=== PATIENT | male | born 1945 | race Caucasian/White ===

== ENCOUNTER 2019-09-01 11:56 | Outpatient (CLI) | payer MEDICARE, SELFPAY ==
--- NOTE | ~2019-09-01 | XR_ITS ---
XR knee RT 3V DATE: 09/01/2019 12:38 INDICATION: Right knee pain TECHNIQUE: 4 views COMPARISON: None FINDINGS: There is prominent narrowing and moderate periarticular spurring at the patellofemoral join t consistent with osteoarthritis. There is mild loss of height of lateral, joint space. There is prominent chondrocalcinosis of the kne e joint. No fracture or dislocation or joint effusion or bone destruction is evident. There is hyperostosis al diane the medial femoral metaphyseal area. IMPRESSION: Osteoarthritis and chondrocalcinosis Reviewed, dictated and finalized at location B. MAILER MACHINE OPERATOR
== END 2019-09-01 11:57 | disposition home or self-care (01) ==
PROVIDERS: PCP Family Medicine; Visit Provider Family Medicine
DX: M25.561 Pain in right knee (principal); M25.461 Effusion, right knee; M17.11 Unilateral primary osteoarthritis, right knee; M11.261 Other chondrocalcinosis, right knee
CPT/HCPCS: 73562

== ENCOUNTER 2019-09-16 14:13 | Emergency (ER) | payer MEDICARE, SELFPAY ==
--- NOTE | ~2019-09-16 | XR_ITS ---
EXAMINATION: XR knee RT 3V DATE: 09/16/2019 15:55 INDICATION: Anterolateral right knee pain post fall TECHNIQUE: Anteroposterior, 2 oblique and crosstable lateral views of the right knee were obtained COMPARISON: 09/01/2019 FINDINGS: Alignment is normal. No fracture. Chondrocalcinosis in the medial and lateral compartments. Osteoart hritis with small marginal osteophytes in the medial and lateral compartments. Severe joint space mikal rowing at the lateral compartment with remodeling of the patellar articular surface. Likely reactive small right knee joint effusion without layering lipohemarthrosis. Loose osteochondral body at the macias perior posterior recess of the joint space. Prominent heterotopic ossification along the posterior me dial metaphyseal region of the right femur consistent with Reilly-Stieda lesion associated with c hronic medial collateral ligament sprain. Prepatellar soft tissue swelling. IMPRESSION: 1. Chondrocalcinosis and severe patellofemoral predominant tricompartmental osteoarthritis. No acute osseous abnormality. 2. Reilly-Stieda lesion consistent with chronic medial collateral ligament sprain. 3. Likely reactive small right knee joint effusion/synovitis without layering lipohemarthrosis. Reviewed, dictated and finalized at location A. BOTOMY SERVICES TECHNICIAN IMPRESSION: 1. Chondrocalcinosis and severe patellofemoral predominant tricompartmental ost eoarthritis. No acute osseous abnormality. 2. Reilly-Stieda lesion consistent with chronic medial collateral ligament sprain. 3. Likely reactive small right knee joint effusion/synovitis without layering l ipohemarthrosis.
--- NOTE | ~2019-09-16 | US_ITS ---
EXAMINATION: US venous doppler LE EXAM DATE: 09/16/2019 16:45 INDICATION: Bilateral leg swelling. TECHNIQUE: Multiple grayscale, color flow and Doppler images of the lower extremity deep venous syste ms bilaterally were obtained and reviewed. There is no prior study for comparison. FINDINGS: RIGHT SIDE Common femoral: -------- Normal. Profunda femoral: ------- Normal. Femoral: Normal. Popliteal: Normal. Posterior tibial: --------- Normal. Peroneal: Thrombosed. Gastrocnemius: Normal. Soleus: Not visualized. Greater saphenous: ----- Normal. Lesser saphenous: ------ Not visualized. LEFT SIDE Common femoral: -------- Normal. Profunda femoral: ------- Normal. Femoral: Normal. Popliteal: Normal. Posterior tibial: --------- Normal. Peroneal: Normal. Gastrocnemius: Normal. Soleus: Not visualized. Greater saphenous: ----- Normal. Lesser saphenous: ------ Not visualized. IMPRESSION: 1. Positive for right peroneal DVT. 2. No left DVT. Reviewed, dictated and finalized at location A. ATTENDANT HELPER
[2019-09-16 15:14] VITALS: BP 114/80; PULSE 79; RESP 19; O2SAT 100
[2019-09-16 17:12] VITALS: BP 125/65; PULSE 85; RESP 18; O2SAT 100
[2019-09-16] MEDS: APIXABAN 5 MG TABLET PO (17:52)
[2019-09-16 17:54] LABS: Basophils Percent Auto 0.2 % (0.2-1.2); Eosinophils Absolute Auto 0.2 K/mm3 (0-0.3); Eosinophils Percent Auto 1.9 % (0-4.4); Hematocrit 34.6 % (42.0-52.0); Hemoglobin 11.4 g/dL (14.0-18.0); Immature Granulocyte Absolute 0.04 K/mm3 (0.00-0.031); Immature Granulocyte Percent A 0.5 % (0-0.5); Lymphocytes Absolute Auto 1.41 K/mm3 (0.9-3.2); Mean Corpuscular HGB Conc 32.9 g/dl (32-36); Mean Corpuscular Hemoglobin 35.2 pg (26-34); Mean Corpuscular Volume 106.8 fl (80-100); Mean Platelet Volume 9.6 fl (7.4-10.4); Monocytes Percent Auto 10.8 % (2.6-8.5); Neutrophils Absolute Auto 6.2 K/mm3 (1.3-6.7); Neutrophils Percent Auto 70.6 % (45.5-73.1); Platelet Count Result 185 k/mm3 (150-375); Red Blood Count 3.24 M/mm3 (4.6-6.20); Red Cell Distribution Width 13.4 % (11.5-14.5); White Blood Count 8.8 K/mm3 (4.5-10.0)
[2019-09-16 18:11] LABS: Blood Urea Nitrogen 41 mg/dL (9-20); Calcium 8.6 mg/dL (8.4-10.2); Carbon Dioxide 25 mmol/L (22-30); Chloride 104 mmol/L (98-107); Estimated CRCL calculation 27 ml/min; Estimated Glomerular Filt Rate 29; Glucose 100 mg/dL (75-110); Sodium 137 mmol/L (137-145)
[2019-09-16 18:12] LABS: Potassium 4.4 mmol/L (3.4-5.0)
[2019-09-16 18:18] LABS: Erythrocyte Sedimentation Rate 106 mm/hr (0-20)
--- NOTE | 2019-09-16 18:19 | ED.GENADULT ---
HPI - General Adult General Chief complaint: Extremity Injury, Lower Stated complaint: R knee pain Time Seen by Provider: 09/16/19 15:23 Source: patient Mode of arrival: ambulatory Limitations: no limitations History of Present Illness HPI narrative: Patient is a 74-year-old male who presents to emergency department noting that he has been having swelling to the right knee and pain after he fell onto the knee 5 days ago patient notes that he has also been dealing with some swelling in the bilateral lower extremities and had been on Eliquis for DVT followed by Dr. Kirby. Patient notes moderate aching pain to the right knee where he has an abrasion to the right knee and the left knee patient denies other injuries or complaints or any chest pain or shortness of breath or lightheadedness or dizziness. Pain is worse with weightbearing and activity. Related Data Home Medications Medication Instructions Recorded Confirmed ferrous sulfate [iron] 325 mg PO BID 07/13/19 08/10/19 nebivolol [Bystolic] 20 mg PO DAILY 07/13/19 08/10/19 aspirin 325 mg PO DAILY 08/10/19 08/10/19 lisinopril 20 mg tablet 20 mg PO DAILY 09/01/19 09/01/19 Allergies Allergy/AdvReac Type Severity Reaction Status Date / Time No Known Allergies Allergy Unverified 03/08/17 10:52 Review of Systems Review of Systems: All systems reviewed & are unremarkable except as noted in HPI and below PMFSH Past Medical History Medical History CKD (chronic kidney disease) stage 3, GFR 30-59 ml/min Dyslipidemia Essential (primary) hypertension Gout Hx of pancreatitis Hx of venous thromboembolic disease Hypertension Idiopathic gout Kidney congenitally absent, left Nephropathy Pneumonia 1960 Pre-diabetes Rib fracture #8 - 1992 Surgical History Surgical History History of cholecystectomy 06/2014 History of rectal sphincterotomy biliary 03/2015 Family History Family History Sibling Hypertension Father Family history of cardiac disorder Social History Social History Smoking status: Never smoker Second hand tobacco smoke exposure: No Alcohol intake: never Substance use: never Substance use type: does not use Gender identity (if verbalized by the patient): Male Exam Narrative: Exam Narrative: GENERAL: Well-appearing, well-nourished, and in no acute distress. HEAD: Normocephalic, atraumatic. EYES: PERRLA and EOMI. ENT: Nares clear, no rhinorrhea or epistaxis. Mucous membranes moist. Oropharynx without tonsillar hypertrophy exudate or other lesions. CHEST: Clear to auscultation. No respiratory distress. No wheezes rales or rhonchi HEART: Regular rate and rhythm. No murmur heard. Normal peripheral pulses. EXTREMITIES: 1+ edema to the bilateral lower extremities. Tenderness of the right knee and left knee with abrasions bilaterally. No erythema or warmth to touch SKIN: Warm, dry, no rash. NEURO: No focal deficits. Alert and oriented x3. Cranial nerves II through XII grossly intact PSYCH: Normal mood and affect. Course Course Emergency Course: Patient in the room aware of case findings treatment plan and diagnosis agreeing to follow with oncology and primary care Consultations Consultation #1: Discussed case with patient's oncologist who would like the patient to be started on Eliquis 5 mg twice a day and to follow in clinic Discussed case with patient's data entry machine operator who will follow the patient in clinic and repeat blood work Discussed case with orthopedic surgery who will also follow patient in clinic Date: 09/16/19 Vital Signs Vital signs: Vital Signs Pulse Rate 79 09/16/19 15:14 Respiratory Rate 19 09/16/19 15:14 Blood Pressure 114/80 09/16/19 15:14 Pulse Oximetry 100 09/16/19 15:14 Pulse
[2019-09-16 18:27] LABS: CRP 17.8 mg/dL (<1.0)
[2019-09-16 18:35] LABS: Appearance Synovial Fluid Bloody (Clear); Color Synovial Fluid Red (Colorless); Source Synovial Fluid Synovial fluid
[2019-09-16 18:36] LABS: Monocytes Synovial Fluid 5 %; Neutrophils Synovial Fluid 91 % (0-25)
[2019-09-16 18:37] LABS: Lymphocytes Synovial Fluid 4 %
[2019-09-16 18:40] LABS: Crystals Synovial Fluid None Seen (None Seen)
[2019-09-16 19:42] VITALS: BP 121/75; PULSE 77; RESP 17; O2SAT 100
[2019-09-19 04:53] LABS: Glucose Synovial Fluid 70 mg/dL
== END 2019-09-16 20:52 | disposition home or self-care (01) ==
PROVIDERS: Emergency Medicine Emergency Medical Services; Emergency Provider Emergency Medicine; PCP Family Medicine
DX: M25.561 Pain in right knee (principal); I82.451 Acute embolism and thrombosis of right peroneal vein; N28.9 Disorder of kidney and ureter, unspecified; N18.3 Chronic kidney disease, stage 3 (moderate); E78.5 Hyperlipidemia, unspecified; I12.9 Hypertensive chronic kidney disease with stage 1 through stage 4 chronic kidney disease, or unspecified chronic kidney disease; M10.9 Gout, unspecified; R73.03 Prediabetes; M76.41 Tibial collateral bursitis [Pellegrini-Stieda], right leg; M11.261 Other chondrocalcinosis, right knee; M17.11 Unilateral primary osteoarthritis, right knee
CPT/HCPCS: 20610; 36415; 73562; 80048; 82945; 84157; 85025; 85610; 85652; 85730; 86140; 87070; 87075; 87205; 88108; 89051; 89060; 93970; 99284; A9270

== ENCOUNTER 2021-05-23 13:12 | Outpatient (CLI) | payer MEDICARE, SELFPAY ==
--- NOTE | ~2021-05-23 | US_ITS ---
US renal BI 05/23/2021 13:39 Procedure: Realtime transabdominal ultrasound of the kidneys and bladder. Indication: Chronic kidney disease Comparison: Ultrasound dated 04/16/2018 Findings: Renal echotexture is normal bilaterally without hydronephrosis, contour deforming mass or r enal calculus. The right kidney measures 9.7 cm and left kidney measures 5.3 cm. Bladder within norm al limits. Impression: 1: Right renal atrophy. Reviewed, dictated and finalized at location A. RUPTCY ATTORNEY Impression: 1: Right renal atrophy.
== END 2021-05-23 13:13 | disposition home or self-care (01) ==
PROVIDERS: PCP Family Medicine; Visit Provider Internal Medicine Nephrology
DX: N18.32 Chronic kidney disease, stage 3b (principal); N26.1 Atrophy of kidney (terminal)
CPT/HCPCS: 76775

== ENCOUNTER 2021-06-20 00:10 | Day surgery (SDC) | payer MEDICARE, SELFPAY ==
[2021-06-05 14:53] VITALS: BMI 27.8
--- NOTE | 2021-06-19 10:44 | PM.HPGS ---
History of Present Illness History of Present Illness Consent: Risks, benefits, and alternatives have been discussed and questions answered. Patient agrees to proceed with procedure. Chief complaint: neoplasm screening Narrative: Bentley Campos is a 76 year old male who is here for colon cancer screening. Six years ago he had 3 polyps removed 2 of which were tubular adenomas Review of Systems Review of Systems: All systems reviewed & are unremarkable except as noted in HPI and below PMFSH Past Medical History Medical History CKD (chronic kidney disease) stage 3, GFR 30-59 ml/min Dyslipidemia Essential (primary) hypertension Hemochromatosis History of colon polyps Hx of pancreatitis Hx of venous thromboembolic disease Hypertension Idiopathic gout Kidney congenitally absent, left Nephropathy Pneumonia 1960 Pre-diabetes Rib fracture #8 - 1992 Surgical History Surgical History History of cholecystectomy 06/2014 History of rectal sphincterotomy biliary 03/2015 Family History Family History Sibling Hypertension Father Family history of cardiac disorder Social History Social History Smoking status: Never smoker Second hand tobacco smoke exposure: No Alcohol intake: never Substance use: never Substance use type: does not use Living arrangements: with family Additional occupation/education comments: [employer] Gender identity (if verbalized by the patient): Male Spiritual care concerns: No Meds Home Medications and Allergies Home Medications Medication Instructions Recorded Confirmed Type lisinopril 20 mg tablet 20 mg PO DAILY 09/01/19 06/20/21 History apixaban 5 mg tablet 5 mg PO BID #20 tablet 03/13/21 06/20/21 Rx cholecalciferol (vitamin D3) 50 50 mcg PO BID cap 03/13/21 06/20/21 History mcg (2,000 unit) capsule magnesium 250 mg tablet 250 mg PO BID tablet 03/13/21 06/20/21 History mecobalamin (vitamin B12) 1,000 1,000 mcg SUBLINGUAL BID tablet 03/13/21 06/20/21 History mcg disintegrating tablet,sublingual nebivolol 20 mg tablet 20 mg PO DAILY tablet 08/31/21 12/08/21 History allopurinol 300 mg tablet 150 mg PO DAILY #90 tablet 04/11/21 06/20/21 Rx Allergies Allergy/AdvReac Type Severity Reaction Status Date / Time No Known Allergies Allergy Verified 06/20/21 06:27 Exam Const: General: alert Orientation/consciousness: patient oriented x3 Resp: Auscultation: clear to auscultation bilaterally Cardio: Rhythm: regular rhythm GI: GI Palp: Yes Soft to palpation and No Tenderness to palpation present (GI) Neuro: General: patient oriented x3 Assessment and Plan Assessment and plan (1) Colon cancer screening: Code(s): Z12.11 - Encounter for screening for malignant neoplasm of colon Status: Acute Assessment and Plan: Colonoscopy with possible biopsy or polypectomy or cautery or injection of substances.
[2021-06-20 06:16] VITALS: BP 145/74; PULSE 62; RESP 18; TEMP 36.3; O2SAT 98; BMI 26.9
[2021-06-20] MEDS: LACTATED RINGERS 1,000 ML 150 ML IV CONT (06:41)
--- NOTE | 2021-06-20 07:19 | WPDANESEPPF ---
Anes - Initial Pre Proc Eval Procedure: Operation Date: 06/20/21 07:30 Proposed Procedures p Screening Colonoscopy - Ismael Marrero MD Date/Time: 06/20/21 07:19 Surgeon: Ismael Marrero MD Pre Op Diagnosis: neoplasm screening Patient Data Age: 76 Gender: M Height: 1.78 m Weight: 85 kg Last Vital Signs Temp 97.3 F L 06/20/21 06:16 Pulse 62 06/20/21 06:16 Resp 18 06/20/21 06:16 BP 145/74 H 06/20/21 06:16 Pulse Ox 98 06/20/21 06:16 Allergies Allergy/AdvReac Type Severity Reaction Status Date / Time No Known Allergies Allergy Verified 06/20/21 06:27 Home Medications Medication Instructions Recorded Confirmed Type lisinopril 20 mg tablet 20 mg PO DAILY 09/01/19 06/20/21 History apixaban 5 mg tablet 5 mg PO BID #20 tablet 03/13/21 06/20/21 Rx cholecalciferol (vitamin D3) 50 50 mcg PO BID cap 03/13/21 06/20/21 History mcg (2,000 unit) capsule magnesium 250 mg tablet 250 mg PO BID tablet 03/13/21 06/20/21 History mecobalamin (vitamin B12) 1,000 1,000 mcg SUBLINGUAL BID tablet 03/13/21 06/20/21 History mcg disintegrating tablet,sublingual nebivolol 20 mg tablet 20 mg PO DAILY tablet 03/13/21 06/20/21 History allopurinol 300 mg tablet 150 mg PO DAILY #90 tablet 04/11/21 06/20/21 Rx Patient hx anesthesia problems: none Family hx anesthesia problems: none Results Review: All pre-operative results and documents have been reviewed as part of the pre-operative evaluation. [facility] Past Medical History Medical History CKD (chronic kidney disease) stage 3, GFR 30-59 ml/min Dyslipidemia Essential (primary) hypertension Hemochromatosis History of colon polyps Hx of pancreatitis Hx of venous thromboembolic disease Hypertension Idiopathic gout Kidney congenitally absent, left Nephropathy Pneumonia 1960 Pre-diabetes Rib fracture #8 - 1992 Surgical History Surgical History History of cholecystectomy 06/2014 History of rectal sphincterotomy biliary 03/2015 Family History Family History Sibling Hypertension Father Family history of cardiac disorder Social History Social History Smoking status: Never smoker Second hand tobacco smoke exposure: No Alcohol intake: never Substance use: never Substance use type: does not use Living arrangements: with family Additional occupation/education comments: [employer] Gender identity (if verbalized by the patient): Male Spiritual care concerns: No Anes - Eval Final PreProcedure Day of Procedure 06/20/21 07:19 Patient weight: overweight Heart: regular rate and rhythm Lungs: clear to auscultation Airway: Mallampati scale class II Neurological: alert and oriented Last oral intake: >/= 8 hours ASA classification: III Emergent: no Anesthetic plan: proceed Anesthesia type and monitoring: general GIVS and standard monitoring Results Review: All pre-operative results and documents have been reviewed as part of the pre-operative evaluation. Informed Consent: The patient's anesthetic plan and its attendant risks and benefits were discussed with the patient/family/POA. Questions were solicited and answers provided to the satisfaction of the patient/family/POA.
[2021-06-20 07:50] VITALS: BP 88/57; PULSE 64; RESP 16; O2SAT 95
[2021-06-20 08:00] VITALS: BP 101/67; PULSE 65; RESP 19; O2SAT 99
[2021-06-20 08:10] VITALS: BP 113/76; PULSE 65; RESP 17; O2SAT 99
== END 2021-06-20 08:13 | disposition home or self-care (01) ==
PROVIDERS: PCP Family Medicine; Visit Provider Internal Medicine Gastroenterology
PROC: 0DJD8ZZ Inspection of Lower Intestinal Tract, Via Natural or Artificial Opening Endoscopic (ICD-10-PCS; CPT 45378; principal; 2021-06-20 07:30)
DX: Z12.11 Encounter for screening for malignant neoplasm of colon (principal); K64.8 Other hemorrhoids; K57.30 Diverticulosis of large intestine without perforation or abscess without bleeding; Z86.010 Personal history of colon polyps; I12.9 Hypertensive chronic kidney disease with stage 1 through stage 4 chronic kidney disease, or unspecified chronic kidney disease; N18.30 Chronic kidney disease, stage 3 unspecified; E78.5 Hyperlipidemia, unspecified; M10.00 Idiopathic gout, unspecified site; R73.03 Prediabetes; Q60.0 Renal agenesis, unilateral; Z79.01 Long term (current) use of anticoagulants
CPT/HCPCS: G0105; J2704; J7120

== ENCOUNTER 2022-03-14 10:02 | Outpatient (CLI) | payer MEDICARE, SELFPAY ==
[2022-03-14 19:27] LABS: Alanine Aminotransferase 18 U/L (6-50); Albumin Level 4.2 g/dL (3.5-5.1); Alkaline Phosphatase 69 U/L (38-126); Anion Gap 10 mmol/L (8-16); Aspartate Amino Transferase 30 U/L (17-59); Bilirubin,Total 0.9 mg/dL (0.2-1.3); Blood Urea Nitrogen 36 mg/dL (9-20); Calcium 9.5 mg/dL (8.4-10.2); Carbon Dioxide 30 mmol/L (22-30); Chloride 100 mmol/L (98-107); Cholesterol 198 mg/dL (0-200); Estimated Glomerular Filt Rate 29; Glucose 111 mg/dL (65-110); HDL Direct 33 mg/dL; Potassium 4.8 mmol/L (3.4-5.0); Sodium 140 mmol/L (137-145); Triglycerides 254 mg/dL (<150)
[2022-03-14 19:36] LABS: Basophils Absolute Auto 0.1 K/mm3 (0.0-0.1); Basophils Percent Auto 0.9 % (0.2-1.2); Eosinophils Absolute Auto 0.3 K/mm3 (0-0.3); Eosinophils Percent Auto 4.9 % (0-4.4); Hematocrit 43.7 % (42.0-52.0); Hemoglobin 14.5 g/dL (14.0-18.0); Immature Granulocyte Absolute 0.01 K/mm3 (0.00-0.031); Immature Granulocyte Percent A 0.2 % (0-0.5); Lymphocytes Absolute Auto 1.59 K/mm3 (0.9-3.2); Lymphocytes Percent Auto 24.4 % (18.3-44.2); Mean Corpuscular HGB Conc 33.2 g/dl (32-36); Mean Corpuscular Hemoglobin 34.8 pg (26-34); Mean Corpuscular Volume 104.8 fl (80-100); Mean Platelet Volume 10.3 fl (7.4-10.4); Monocytes Absolute Auto 0.8 K/mm3 (0.1-0.6); Monocytes Percent Auto 11.7 % (2.6-8.5); Neutrophils Absolute Auto 3.8 K/mm3 (1.3-6.7); Neutrophils Percent Auto 57.9 % (45.5-73.1); Platelet Count Result 205 k/mm3 (150-375); Red Blood Count 4.17 M/mm3 (4.6-6.20); Red Cell Distribution Width 13.3 % (11.5-14.5); White Blood Count 6.5 K/mm3 (4.5-10.0)
[2022-03-14 19:39] LABS: LDL Cholesterol Direct 97 mg/dL
[2022-03-14 19:47] LABS: Hemoglobin A1C 6.3 % (<5.7)
[2022-03-14 19:57] LABS: Prostate Specific Antigen 0.5 ng/mL (< OR = 4.0)
== END 2022-03-14 10:03 | disposition home or self-care (01) ==
LOC: ANHGOSHLAB 10:09
PROVIDERS: PCP Family Medicine; Visit Provider Nurse Practitioner Family
DX: Z12.5 Encounter for screening for malignant neoplasm of prostate (principal); E78.5 Hyperlipidemia, unspecified; Z00.00 Encounter for general adult medical examination without abnormal findings; R73.03 Prediabetes; I10 Essential (primary) hypertension
CPT/HCPCS: 36415; 80053; 80061; 83036; 84153; 84443; 85025; G0103

== ENCOUNTER 2023-03-26 09:40 | Outpatient (CLI) | payer MEDICARE, SELFPAY ==
[2023-03-26 19:03] LABS: Basophils Absolute Auto 0.1 K/mm3 (0.0-0.1); Eosinophils Absolute Auto 0.4 K/mm3 (0-0.3); Hematocrit 42.6 % (42.0-52.0); Hemoglobin 14.2 g/dL (14.0-18.0); Immature Granulocyte Absolute 0.02 K/mm3 (0.00-0.031); Immature Granulocyte Percent A 0.3 % (0-0.5); Lymphocytes Absolute Auto 1.62 K/mm3 (0.9-3.2); Lymphocytes Percent Auto 23.3 % (18.3-44.2); Mean Corpuscular HGB Conc 33.3 g/dl (32-36); Mean Corpuscular Hemoglobin 34.4 pg (26-34); Mean Corpuscular Volume 103.1 fl (80-100); Mean Platelet Volume 9.9 fl (7.4-10.4); Monocytes Absolute Auto 0.8 K/mm3 (0.1-0.6); Monocytes Percent Auto 11.6 % (2.6-8.5); Neutrophils Absolute Auto 4.1 K/mm3 (1.3-6.7); Neutrophils Percent Auto 58.8 % (45.5-73.1); Platelet Count Result 202 k/mm3 (150-375); Red Blood Count 4.13 M/mm3 (4.6-6.20); Red Cell Distribution Width 12.3 % (11.5-14.5)
[2023-03-26 20:28] LABS: Hemoglobin A1C 6.2 % (<5.7)
[2023-03-26 21:36] LABS: Cholesterol 229 mg/dL (0-200); HDL Direct 29 mg/dL; Triglycerides 233 mg/dL (<150)
[2023-03-26 21:47] LABS: LDL Cholesterol Direct 125 mg/dL
[2023-03-26 22:36] LABS: Vitamin B12 > 1000.0 pg/mL (239-931)
[2023-03-27 12:53] LABS: Alanine Aminotransferase 21 U/L (6-50); Albumin Level 4.2 g/dL (3.5-5.1); Alkaline Phosphatase 66 U/L (38-126); Anion Gap 8 mmol/L (8-16); Aspartate Amino Transferase 26 U/L (17-59); Bilirubin,Total 0.9 mg/dL (0.2-1.3); Blood Urea Nitrogen 36 mg/dL (9-20); Calcium 9.2 mg/dL (8.4-10.2); Carbon Dioxide 27 mmol/L (22-30); Chloride 102 mmol/L (98-107); Estimated Glomerular Filt Rate 31; Glucose 98 mg/dL (65-110); Potassium 5.3 mmol/L (3.4-5.0); Sodium 137 mmol/L (137-145); Uric Acid 11.9 mg/dL (3.5-8.5)
[2023-03-27 16:37] LABS: Prostate Specific Antigen 0.6 ng/mL (< OR = 4.0)
== END 2023-03-26 09:41 | disposition home or self-care (01) ==
LOC: ANHGOSHLAB 09:42
PROVIDERS: PCP Family Medicine; Visit Provider Family Medicine
DX: Z12.5 Encounter for screening for malignant neoplasm of prostate (principal); Z00.00 Encounter for general adult medical examination without abnormal findings; R73.03 Prediabetes; E83.110 Hereditary hemochromatosis; E53.8 Deficiency of other specified B group vitamins; E78.5 Hyperlipidemia, unspecified; M10.00 Idiopathic gout, unspecified site; I10 Essential (primary) hypertension
CPT/HCPCS: 36415; 80053; 80061; 82607; 83036; 84153; 84443; 84550; 85025; G0103

== ENCOUNTER 2023-04-18 08:07 | Outpatient (CLI) | payer MEDICARE, SELFPAY ==
[2023-04-18 08:37] LABS: Hematocrit 41.2 % (42.0-52.0); Hemoglobin 13.7 g/dL (14.0-18.0); Mean Corpuscular HGB Conc 33.3 g/dl (32-36); Mean Corpuscular Hemoglobin 34.5 pg (26-34); Mean Corpuscular Volume 103.8 fl (80-100); Mean Platelet Volume 9.6 fl (7.4-10.4); Platelet Count Result 167 k/mm3 (150-375); Red Blood Count 3.97 M/mm3 (4.6-6.20); Red Cell Distribution Width 12.7 % (11.5-14.5); White Blood Count 5.9 K/mm3 (4.5-10.0)
[2023-04-18 08:47] LABS: Albumin Level 4.2 g/dL (3.5-5.1); Anion Gap 5 mmol/L (8-16); Blood Urea Nitrogen 36 mg/dL (9-20); Carbon Dioxide 29 mmol/L (22-30); Chloride 101 mmol/L (98-107); Estimated Glomerular Filt Rate 37; Glucose 115 mg/dL (65-110); Potassium 4.5 mmol/L (3.4-5.0); Sodium 135 mmol/L (137-145)
[2023-04-18 08:50] LABS: Creatinine Urine 29.4 mg/dL; Total Protein Urine Random 17 mg/dL; Ur Ttl Prot Creatinine Ratio 0.58 mg/mg (0-0.20)
[2023-04-18 09:02] LABS: Parathyroid Intact 48.1 pg/mL (7.5-53.5)
== END 2023-04-18 08:08 | disposition home or self-care (01) ==
LOC: ANHLAB 08:09
PROVIDERS: PCP Family Medicine; Visit Provider Internal Medicine Nephrology
DX: N18.32 Chronic kidney disease, stage 3b (principal)
CPT/HCPCS: 36415; 80069; 82570; 83970; 84156; 85027

== ENCOUNTER 2023-05-17 09:31 | Outpatient (CLI) | payer MEDICARE, SELFPAY ==
--- NOTE | 2023-05-17 09:35 | ECHO_ITS ---
Patient Info Name: Bentley Campos Age: 77 years : 1945 Gender: Male Ht: 70 in Wt: 170 lbs BSA: 1.96 m2 HR: 58 bpm BP: 176 / 101 mmHg Heart Rhythm: Sinus Rhythm Technical Quality: Good Exam Date: 05/17/2023 9:51 AM Exam Location: Echo Lab Patient Status: Outpatient Admit Date: 05/17/2023 Staff Ordering Physician: Sukumar Sandoval DO Tactical Air Defense Controller: King Maguire RDCS Attending Provider: Sukumar Sandoval DO Referring Physician: Jaime NICOLE; Exam Type: CA echo doppler color flow Study Info Indications - atrioventricular block Complete two-dimensional, color flow and Doppler transthoracic echocardiogram is performed. Summary 1. Complete two-dimensional, color flow and Doppler transthoracic echocardiogram is performed. 2. Left ventricular chamber dimension is normal. 3. Left ventricular systolic function is normal, estimated at 65-70%. 4. There is mild concentric increased left ventricular wall thickness. 5. The left ventricular diastolic function is grade I diastolic dysfunction. 6. E/e' 8 is minimally elevated. 7. Left atrial chamber dimension is mildly enlarged. 8. No pulmonary hypertension, estimated pulmonary arterial systolic pressure is 17 mmHg. Left Ventricle E/e' 8 is minimally elevated. Left ventricular chamber dimension is normal. Left ventricular systolic function is normal, estimated at 65-70%. There is mild concentric increased left ventricular wall thickness. The left ventricular diastolic function is grade I diastolic dysfunction. Right Ventricle Right ventricular systolic function is normal and with normal TAPSE 2.1 cm. Right ventricular chamber dimension is normal. Left Atria Left atrial chamber dimension is mildly enlarged. Right Atria Right atrial chamber dimension is normal. Aortic Valve The aortic valve is trileaflet. There is no aortic valve stenosis. There is no aortic valve regurgitation. Pulmonic Valve There is no pulmonic regurgitation. Mitral Valve There is no mitral valve stenosis. There is no mitral valve regurgitation. Tricuspid Valve There is no tricuspid valve regurgitation. No pulmonary hypertension, estimated pulmonary arterial systolic pressure is 17 mmHg. Pericardium/Pleural There is no pericardial effusion. Inferior Vena Cava Normal inferior vena cava with >50% collapse upon inspiration consistent with normal right atrial pressure, 5 mmHg. Aorta The aortic root size at the sinus of Valsalva is normal. Left Ventricular Outflow Tract Name Value Normal LVOT 2D LVOT Diameter 2.0 cm LVOT Doppler LVOT Peak Gradient 5 mmHg LVOT Mean Gradient 3 mmHg LVOT VTI 29 cm LVOT VTI/AV VTI Ratio 1.0 LVOT Stroke Volume 86 ml LVOT CO 4.4 l/min LVOT CI 2.3 l/min/m2 Pulmonic Valve Name Value Normal RVOT Doppler
== END 2023-05-17 09:32 | disposition home or self-care (01) ==
LOC: ANHCARD 09:32
PROVIDERS: PCP Family Medicine; Visit Provider Internal Medicine Cardiovascular Disease
DX: I44.2 Atrioventricular block, complete (principal); I51.7 Cardiomegaly
CPT/HCPCS: 93306

== ENCOUNTER 2023-05-26 00:39 | Day surgery (SDC) | payer MEDICARE, SELFPAY ==
[2023-05-23 14:06] VITALS: BMI 28.1
[2023-05-26] VITALS (17 sets, daily range): BP systolic 115–142; BP diastolic 45–82; PULSE 69–86; RESP 16–22; TEMP 36.6–36.8; O2SAT 93–98; BMI 27.4
--- NOTE | ~2023-05-26 | XR_ITS ---
Portable chest x-ray Comparison: 03/08/2017 Clinical History: Pacemaker placement Findings: Lungs are clear, without focal consolidation or pleural effusion. No pneumothorax. Cardio mediastinal silhouette is stable, now with pacemaker in place. Bones and soft tissues are unremarkabl e. Impression: Status post pacemaker placement. Clear lungs. Reviewed, dictated and finalized at [facility]. 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 Clear lungs.
--- NOTE | ~2023-05-26 | XR_ITS ---
EXAMINATION: XR chest 2V DATE: 05/27/2023 10:18 INDICATION: Pacer placement. TECHNIQUE: Frontal and lateral views of the chest were obtained. COMPARISON: Chest single view 05/26/2023, chest CT 08/15/2017 FINDINGS: There is mild atelectasis at left lung base. No pleural effusion or pneumothorax. The heart size is normal. There is a left chest wall pacer with leads in the right atrium and right ventricle. IMPRESSION: 1. Mild atelectasis at left lung base. Reviewed, dictated and finalized at location A. NKLER TENDER
--- NOTE | 2023-05-26 07:00 | ECG_ITS ---
Measurements Intervals [place] Rate: 78 P: [place]: 0 QRS: -1 QRSD: 80 T: 60 QT: 360 QTc: 411 Interpretive Statements SINUS RHYTHM WITH SECOND DEGREE AV BLOCK, TYPE I BORDERLINE ST-T WAVE ABNORMALITY- HIGH LATERAL LEADS BASELINE ARTIFACT- I, II, III, AVF, V1-V3 ABNORMAL ECG NO PREVIOUS ECG AVAILABLE FOR COMPARISON Electronically Signed On 05-26-2023 7:54:05 CHILD CARE COORDINATOR by uSkumar Sandoval D.O.
[2023-05-26 07:41] LABS: Anion Gap 13 mmol/L (8-16); Blood Urea Nitrogen 41 mg/dL (9-20); Calcium 9.8 mg/dL (8.4-10.2); Carbon Dioxide 25 mmol/L (22-30); Chloride 102 mmol/L (98-107); Estimated CRCL calculation 27 ml/min; Estimated Glomerular Filt Rate 31; Glucose 129 mg/dL (65-110); Potassium 4.3 mmol/L (3.4-5.0); Sodium 140 mmol/L (137-145)
[2023-05-26 07:42] LABS: Basophils Absolute Auto 0.1 K/mm3 (0.0-0.1); Basophils Percent Auto 0.9 % (0.2-1.2); Eosinophils Absolute Auto 0.4 K/mm3 (0-0.3); Eosinophils Percent Auto 5.4 % (0-4.4); Hematocrit 43.7 % (42.0-52.0); Hemoglobin 14.2 g/dL (14.0-18.0); Immature Granulocyte Absolute 0.03 K/mm3 (0.00-0.031); Immature Granulocyte Percent A 0.4 % (0-0.5); Lymphocytes Percent Auto 24.8 % (18.3-44.2); Mean Corpuscular HGB Conc 32.5 g/dl (32-36); Mean Corpuscular Hemoglobin 33.4 pg (26-34); Mean Corpuscular Volume 102.8 fl (80-100); Mean Platelet Volume 9.5 fl (7.4-10.4); Monocytes Absolute Auto 0.7 K/mm3 (0.1-0.6); Monocytes Percent Auto 9.9 % (2.6-8.5); Neutrophils Percent Auto 58.6 % (45.5-73.1); Platelet Count Result 240 k/mm3 (150-375); Red Blood Count 4.25 M/mm3 (4.6-6.20); Red Cell Distribution Width 13.3 % (11.5-14.5); White Blood Count 6.9 K/mm3 (4.5-10.0)
--- NOTE | 2023-05-26 08:44 | WPDMODSED ---
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 Present Complaint: no complaints Procedure to be performed/Plan: implantation of permanent pacemaker Allergies Allergy/AdvReac Type Severity Reaction Status Date / Time No Known Allergies Allergy Verified 05/23/23 14:30 Home Medications Medication Instructions Recorded Confirmed Type apixaban 5 mg tablet (Eliquis) 5 mg PO BID #20 tabs 03/13/21 05/23/23 Rx cholecalciferol (vitamin D3) 50 50 mcg PO BID 03/13/21 05/23/23 History mcg (2,000 unit) capsule magnesium 250 mg tablet 250 mg PO BID 03/13/21 05/23/23 History mecobalamin (vitamin B12) 1,000 1,000 mcg sublingual BID 03/13/21 05/23/23 History mcg disintegrating tablet,sublingual lisinopril 40 mg tablet 40 mg PO DAILY 03/26/23 05/26/23 History allopurinol 300 mg tablet 300 mg PO DAILY #90 tabs 03/31/23 05/23/23 Rx amlodipine 10 mg tablet 10 mg PO HS 05/23/23 05/23/23 History Sedation/Anesthesia: No previous sedation/anesthesia problems (including family history). [facility] Past Medical History Medical History Chronic kidney disease, stage 3b Chronic venous insufficiency of lower extremity Dyslipidemia Essential (primary) hypertension Hemochromatosis History of colon polyps last colonoscopy in June 2021 which was normal. No further screening recommended due to his age Hx of pancreatitis Hx of venous thromboembolic disease pulmonary embolism and DVT in bilateral lower extremities in February 2017. 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) Hypertension Idiopathic gout Kidney congenitally absent, left Pneumonia 1960 Pre-diabetes Rib fracture #8 1992 Seasonal allergies Surgical History Surgical History History of cholecystectomy 06/2014 History of rectal sphincterotomy biliary 03/2015 Family History Family History Sibling Hypertension Father Family history of cardiac disorder Social History Social History Smoking status: Never smoker Second hand tobacco smoke exposure: No Alcohol intake: never Substance use: never Substance use type: does not use Lack of Transportation: No Lack of Food: Never True Current Housing: I Have Housing Concerned About Future Housing: No Difficulty Paying Gas/Electric Bills: No Difficulty Paying for Meds: No Currently Unemployed: No Education: Bachelor's Degree Living arrangements: with family Additional living arrangements comments: Occupation/Education: occupation Additional occupation/education comments: [employer] Gender identity (if verbalized by the patient): Male Sexual Orientation (if Verbalized by the Patient): Straight or Heterosexual Spiritual care concerns: No Mod Sed Physical Exam Physical Exam Pre Procedural Exam: Normal: Appearance, Throat, Airway, Lungs, Heart Size, Heart Rate, Neuro Exam and Extremities and Variation: Heart Rhythm ( second-degree AV block) Hours since solid foods: 12 Hours since liquid intake: 12 Mallampati Classification: class II Internal Medicine - PN: Obj Da Vital Signs Vital Signs: Vital Signs - 24 hr 05/26/23 07:00 Temperature 36.8 C Pulse Rate 83 Respiratory Rate 17 Blood Pressure 142/82 H Pulse Oximetry 98 Oxygen Delivery Room Air Intake/Output Intake/Output: Intake & Output 05/23/23 05/24/23 05/25/23 05/26/23 23:59 23:59 23:59 23:59 Output Total 0 Balance 0 Labs 05/26/23 07:17 05/26/23 07:17 Labs: Laboratory Results - last 24 hr 05/26/23 07:17 WBC 6.9 RBC 4.25 L Hgb 14.2 Hct 43.7 MCV 102.8 H MCH 33.4 MCHC 32.5 RDW 13.3 Plt Count 240 MPV 9.5 Immature Gran % (Auto) 0.4 Neut % (A
--- NOTE | 2023-05-26 10:00 | ECG_ITS ---
Measurements Intervals [place] Rate: 76 P: 182 [place]: 174 QRS: -74 QRSD: 133 T: 87 QT: 406 QTc: 459 Interpretive Statements ATRIAL SENSE- ELECTRONIC VENTRICULAR PACEMAKER NO FURTHER INTERPRETATION IS POSSIBLE ATYPICAL ECG COMPARED TO ECG 05/26/2023 07:37:33 VENTRICULAR PACEMAKER NOW PRESENT Electronically Signed On 05-26-2023 11:36:40 STOCK CONTROL CLERK by Sukumar Sandoval D.O.
--- NOTE | 2023-05-26 10:06 | WPDCARDPROC ---
Cardiac Cath Procedure Note Date of procedure:: 05/26/23 Performing physician:: Nicho Schafer MD Indication:: second-degree AV block Brief clinical history:: this is a 77-year-old man who has not been experiencing syncope but has been found on outpatient evaluation to have second-degree AV block with examples of Mobitz type 1 and Mobitz type 2 physiology. Because of the Mobitz 2 physiology pacemaker implantation has been recommended Procedure Procedure performed:: dual-chamber pacemaker implantation Sedation/Medication given:: fentanyl 50 mg Versed 4 mg Access site:: left subclavian vein Estimated blood loss:: 25 cc Procedure note:: patient was brought to the cardiac catheterization lab in postabsorptive state where the left anterior chest wall was prepped and draped in the usual fashion. Anesthesia was provided with 1% lidocaine infiltrated locally. incision was then made inferior to the clavicle from the midclavicular line to the deltopectoral groove. Sharp and blunt dissection was used to separate the subcutaneous tissue electrocautery was used to provide cutaneous hemostasis. The prepectoral fascia was identified and blunt dissection was used to create a pacemaker pocket along the fascial plane inferior to the incision. This was then packed with an antibiotic-soaked 4 x 4. Following this attention was turned to venous access. Using the modified Seldinger technique 2 separate punctures were made of the left subclavian vein and the J wires were advanced into the venous circulation fluoroscopically visualized to advanced to the right atrium. The two 6 Bengali pacemaker safe sheaths were then used to insert the leads detailed below into the venous circulation to the level of the right atrium. Following this attention was turned to positioning the ventricular lead the stylet was removed from the lead and I used a 3 cc syringe perform a J-tip stylet this was then placed back into the lead was steered through the right ventricle out to the pulmonary artery position. It was withdrawn and placed into the right ventricular apex. Appropriate pacing and sensing was demonstrated and the fixation screw was deployed. Following this attention was turned to positioning the atrial lead. The stylet was withdrawn and a preformed atrial J tipped stylet was placed into the lead. It was positioned into the right atrium in the position screw was deployed. Upon testing the threshold was suboptimal and so I withdrew the screw and found a alternative position more in the true right atrial appendage. Following this pacing and sensing was found to be satisfactory. In both leads a 10 volts stimulation showed no evidence of extracardiac stimulation. Following this the leads were secured to the base of the pocket using the suture sleeves and the 2-0 silk ties. The pocket was then irrigated with antibiotic infused saline following removal of the retained sponge. The pacemaker device detailed below was connected to the leads using the torque wrench in the entire assembly was placed into the newly created pocket. This was then closed in layers using 3-0 Vicryl in an interrupted fashion for the subcutaneous tissue and 4-0 Vicryl in a running subcuticular fashion for the skin. the site was then dressed with an Aquacel dressing and the patient was taken back to the holding area for post pacemaker recovery postop ECG check chest x-ray antibiotics and analgesics were ordered. Findings:: Patient received a Biotronik dual-chamber pacemaker model Edora 8 [id number]. serial number [id number]. the device is programmed the DDD mode lower rate limit is 60 upper rate limit 120 AV delay 200/160 milliseconds. The atrial lead is a Biotronik screw-in bipolar lead model Solia S [id number]. serial number [id number]. the P-waves are sensed at 1.8 mV pacing threshold 0.8 volt at 0.4 milliseconds impedance 468 Ohms. The ventricular lead is a Biotronik screw-in
--- NOTE | 2023-05-26 11:59 | ADMGEN ---
This patient, Bentley Campos, was admitted to [facility] Surgery-1. Patient/family oriented to hospital policies and general routines including ID bracelet, bed and alarms, visiting hours, pain management, procedures, bathroom and other care routines, personal items, smoking policy, room service/diet, and visiting hours. Information on how to activate the Rapid Response Team has been discussed. Patient/Family are encouraged to report perceived risks to care and to ask questions if they do not understand what they are told or what they should do.
--- NOTE | 2023-05-26 15:40 | SUR.PHASEII ---
end of phase 2. pt transferred to imu 209. incision and pt check performed with mj small in im. pt stable no issues noted. vss at this time
[2023-05-26] MEDS: SODIUM CHLORIDE 0.9% IV 1,000 ML 50 ML IV CONT (17:49)
[2023-05-26] MEDS: ceFAZolin 1 GM/NS 50 ML 1 GM/50 ML BAG IVPB (17:51)
--- NOTE | 2023-05-26 18:42 | PC.NURSE ---
1545- received pt to room 29 post pacemeaker insertion; dressing to left upper chest CDI, left arm immobilizer in place, p tinstructed on post procedure activity and routines of floor- pt acknowledge understanding. monitor 100% paced rhythmn
[2023-05-27] VITALS (7 sets, daily range): BP systolic 118–145; BP diastolic 68–82; PULSE 81–99; RESP 16–20; TEMP 36.7–37.7; O2SAT 95–98
[2023-05-27] MEDS: ceFAZolin 1 GM/NS 50 ML 1 GM/50 ML BAG IVPB (00:34)
--- NOTE | 2023-05-27 10:53 | PM.DS ---
DS: Admitting Diagnosis Discharge Date 05/27/2023 Admitting Diagnosis Second degree AVB type I DS: Summary Hospital Course Hospital Course: Admitted overnight after elective pacemaker placement which was uncomplicated. Follow up chest X-rays and pacemaker interrogation are favorable and as such the plan is to discharge patient today. Time Spent with Patient Time attestation: Total time spent providing and/or coordinating discharge services: Exam Const: General: comfortable, no acute distress, alert and awake Orientation/consciousness: patient oriented x3 HENMT: Head: normal to inspection Eyes: General: appearance normal, both eyes and all related structures Pupils: Equal, round and reactive pupils present Neck: Neck: normal visual inspection, supple and no JVD Carotids: normal carotid upstroke Resp: Effort & Inspection: normal respiratory effort Auscultation: clear to auscultation bilaterally Other: left upper chest incision covered with sterile dressing. No drainage, bleeding, hematoma. Cardio: Rate: regular rate Rhythm: regular rhythm Heart sounds: S1 normal heart sound present, S2 normal heart sound present and no murmurs GI: Auscultation: normal bowel sounds Skin: General skin exam: normal color Neuro: General: patient oriented x3 Cranial nerves: Yes Equal, round and reactive pupils present Extrem: General: normal to inspection Psych: Appearance: grossly normal Mental Status: mental status grossly normal Discharge Plan Discharge Patient Disposition: Home, Self-Care Discharge Instructions: [facility] [address] [place] [address] DISCHARGE INSTRUCTIONS - POST PACEMAKER Activity 1. No driving until you are seen in the office for your incision check. 2. No lifting, pushing or pulling more than 5 pounds with affected arm for 1 MONTH 3. No lifting affected arm above shoulder height for 1 MONTH 4. Wear immobilizer/sling only if you are unable to remember the above activity restrictions. Recommend that it be worn at night. 5. You may shower AFTER you are seen for incision check but no tub baths, swimming pool or hot tub for 1MONTH Wound Care 1. Do not attempt to remove the Aquacel dressing. Leave dressing undisturbed until incision check at the office visit. Keep dressing dry. 2. When you are able to shower AFTER you are seen for your incision check in the office do not rub or scrub the incision. Pat dry after shower. NO lotions, powders, creams or ointments are to be applied to the incision 3. A small amount of tenderness, puffiness and bruising around the site is normal. Call if any significant pain, drainage, swelling, or redness around the site *For any other questions please call the office at [phone]. Office hours are 8AM 4:30PM Friday through Friday. Patient Instructions: Pacemaker (DC) Stand Alone Forms: General Discharge Instructions Follow-up/Referrals: Nicho Schafer MD [Physician] - (06/02/2023 at 9:45. Please arrive at 9:30) Discharge Medications: Continued lisinopril 40 mg tablet 40 mg PO DAILY cholecalciferol (vitamin D3) 50 mcg (2,000 unit) capsule 50 mcg PO BID mecobalamin (vitamin B12) 1,000 mcg tablet,disintegrating 1,000 mcg sublingual BID Rx Instructions: place tablet under tongue and allow to dissolve for at least30 secs before swallowing magnesium 250 mg tablet 250 mg PO BID amlodipine 10 mg tablet
== END 2023-05-27 13:28 | disposition home or self-care (01) ==
LOC: ANHCATHLAB 07:00 → ANHSUROVER 14:18 → ANHIMU 15:46
PROVIDERS: PCP Family Medicine; Visit Provider Specialist
PROC: 0JH606Z Insertion of Pacemaker, Dual Chamber into Chest Subcutaneous Tissue and Fascia, Open Approach (ICD-10-PCS; CPT 33208; principal; 2023-05-26 08:30)
DX: I44.1 Atrioventricular block, second degree (principal); I12.9 Hypertensive chronic kidney disease with stage 1 through stage 4 chronic kidney disease, or unspecified chronic kidney disease; N18.32 Chronic kidney disease, stage 3b; E78.5 Hyperlipidemia, unspecified; M10.9 Gout, unspecified; I87.2 Venous insufficiency (chronic) (peripheral); Z86.718 Personal history of other venous thrombosis and embolism; Q60.0 Renal agenesis, unilateral; Z79.01 Long term (current) use of anticoagulants
CPT/HCPCS: 33208; 36415; 71045; 71046; 80048; 85025; 93005; C1779; C1785; J0690; J2250; J3010; J7030; J7040

== ENCOUNTER 2024-02-06 12:45 | Outpatient (CLI) | payer MEDICARE, SELFPAY ==
[2024-02-06 20:13] LABS: Bacteria Urine None Seen /hpf; Non Pathogenic Casts 0-2; RBC Urine >100 /hpf (0-2); Squamous Epithelial Cell Urine None Seen /hpf (Few)
[2024-02-06 20:18] LABS: Color Urine Amber (Yellow)
[2024-02-06 20:19] LABS: Appearance Urine Cloudy (Clear)
[2024-02-06 20:20] LABS: Blood Urine 3+ (Negative); Glucose Urine UA Negative (Negative); Ketones Urine Negative (Negative); Protein Urine 2+ mg/dL (Negative)
[2024-02-06 20:21] LABS: Bilirubin Urine Negative (Negative); Nitrate Urine Negative (Negative); Urobilinogen Urine 0.2 mg/dL (<2.0)
[2024-02-06 20:22] LABS: Add Urine Microscopic? YES; Leukocyte Esterase Ur Negative LEU/UL (Negative)
== END 2024-02-06 12:46 | disposition home or self-care (01) ==
LOC: ANHGOSHLAB 12:46
PROVIDERS: PCP Family Medicine; Visit Provider Family Medicine
DX: R31.9 Hematuria, unspecified (principal)
CPT/HCPCS: 81001; 87086

== ENCOUNTER 2024-03-17 15:01 | Outpatient (CLI) | payer MEDICARE, SELFPAY ==
--- NOTE | ~2024-03-17 | XR_ITS ---
EXAMINATION: XR abdomen/kub 1V DATE: 03/17/2024 15:45 INDICATION: Gross hematuria. TECHNIQUE: A supine view of the abdomen on 2 radiographs was obtained. COMPARISON: CT abdomen and pelvis 03/17/2024 FINDINGS: There are no dilated loops of bowel. Surgical clips in the right upper quadrant are likely from cholecystectomy. IMPRESSION: 1. No urolithiasis. Reviewed, dictated and finalized at location A. IMPRESSION: 1. No urolithiasis.
--- NOTE | ~2024-03-17 | CT_ITS ---
EXAMINATION: CT abdomen pelvis wo con DATE: 03/17/2024 15:45 INDICATION: Gross hematuria. TECHNIQUE: Computed tomography (CT) of the abdomen and pelvis was performed without intravenous contr ast. Automated exposure control and iterative reconstruction technique were employed. The dose-length product was 848.05 mGy-cm. COMPARISON: CT abdomen and pelvis 03/10/2017 FINDINGS: The visualized portions of the lung bases demonstrate mild atelectasis and mild chronic int erstitial lung disease. Calcified pulmonary nodules and calcified hilar lymph nodes are consistent wi th old granulomatous disease. There is mild bronchiectasis bilaterally. No pleural effusion. The hear t size is normal. There are coronary artery calcifications. There are pacer wires in right atrium and right ventricle. No pericardial effusion. There is diffuse hepatic steatosis. There are changes of c holecystectomy. Calcifications in the spleen are consistent with old granulomatous disease. The pancr eas and adrenal glands are normal. There is cortical thinning of right kidney. There is severe atroph y of left kidney. There is severe left hydronephrosis and hydroureter. There are multiple masses in t he bladder measuring up to 3.2 cm. There is diverticulosis of the colon without evidence of diverticu litis. There are no dilated loops of bowel. There is a small sliding hiatal hernia. There are no path ologically enlarged lymph nodes. There is no free intraperitoneal fluid. There is lumbar levoscoliosi s and severe spondylosis. IMPRESSION: 1. Bladder masses, consistent with urothelial carcinoma. 2. Severe left hydronephrosis and hydroureter secondary to a bladder mass. 3. Severe left kidney atrophy, unchanged from 03/10/2017. Reviewed, dictated and finalized at location A.
[2024-03-17 15:18] LABS: Estimated Glomerular Filt Rate 28
== END 2024-03-17 15:02 | disposition home or self-care (01) ==
PROVIDERS: PCP Urology; Visit Provider Urology
DX: R94.4 Abnormal results of kidney function studies (principal); N13.30 Unspecified hydronephrosis; N13.4 Hydroureter; N26.1 Atrophy of kidney (terminal); D49.4 Neoplasm of unspecified behavior of bladder
CPT/HCPCS: 74018; 74176

== ENCOUNTER 2024-03-24 09:23 | Outpatient (CLI) | payer MEDICARE, SELFPAY ==
[2024-03-24 09:39] LABS: Basophils Percent Auto 0.6 % (0.2-1.2); Eosinophils Absolute Auto 0.2 K/mm3 (0-0.3); Eosinophils Percent Auto 3.6 % (0-4.4); Hematocrit 38.8 % (42.0-52.0); Hemoglobin 12.8 g/dL (14.0-18.0); Immature Granulocyte Absolute 0.02 K/mm3 (0.00-0.031); Immature Granulocyte Percent A 0.3 % (0-0.5); Lymphocytes Absolute Auto 1.49 K/mm3 (0.9-3.2); Lymphocytes Percent Auto 22.6 % (18.3-44.2); Mean Corpuscular Hemoglobin 34.9 pg (26-34); Mean Corpuscular Volume 105.7 fl (80-100); Mean Platelet Volume 9.2 fl (7.4-10.4); Monocytes Absolute Auto 0.7 K/mm3 (0.1-0.6); Monocytes Percent Auto 10.3 % (2.6-8.5); Neutrophils Absolute Auto 4.1 K/mm3 (1.3-6.7); Neutrophils Percent Auto 62.6 % (45.5-73.1); Platelet Count Result 163 k/mm3 (150-375); Red Blood Count 3.67 M/mm3 (4.6-6.20); Red Cell Distribution Width 13.2 % (11.5-14.5); White Blood Count 6.6 K/mm3 (4.5-10.0)
[2024-03-24 12:43] LABS: Iron 130 ug/dL (49-181)
[2024-03-24 12:51] LABS: Alanine Aminotransferase 21 U/L (6-50); Albumin Level 4.1 g/dL (3.5-5.1); Alkaline Phosphatase 69 U/L (38-126); Anion Gap 9 mmol/L (4-12); Aspartate Amino Transferase 29 U/L (17-59); Bilirubin,Total 0.7 mg/dL (0.2-1.3); Blood Urea Nitrogen 37 mg/dL (9-20); Calcium 8.9 mg/dL (8.4-10.2); Carbon Dioxide 27 mmol/L (22-30); Chloride 98 mmol/L (98-107); Estimated Glomerular Filt Rate 29; Glucose 116 mg/dL (65-110); Sodium 134 mmol/L (137-145)
[2024-03-24 12:54] LABS: Percent Iron Saturation 56 % (20-50)
== END 2024-03-24 09:24 | disposition home or self-care (01) ==
LOC: ANHLAB 09:26
PROVIDERS: PCP Urology; Visit Provider Internal Medicine Hematology & Oncology
DX: E83.119 Hemochromatosis, unspecified (principal)
CPT/HCPCS: 36415; 80053; 82728; 83540; 83550; 85025

== ENCOUNTER 2024-04-01 09:34 | Outpatient (CLI) | payer MEDICARE, SELFPAY ==
[2024-04-01 10:40] LABS: INR 1.2; Prothrombin Time 15.6 Seconds (11.1-14.7)
[2024-04-01 10:41] LABS: Cholesterol 175 mg/dL (0-200); HDL Direct 41 mg/dL; Triglycerides 120 mg/dL (<150); Uric Acid 4.9 mg/dL (3.5-8.5)
[2024-04-01 10:52] LABS: LDL Cholesterol Direct 102 mg/dL
[2024-04-01 11:12] LABS: Prostate Specific Antigen 0.5 ng/mL (< OR = 4.0)
[2024-04-01 11:34] LABS: Vitamin B12 > 1000.0 pg/mL (239-931)
[2024-04-01 12:07] LABS: Hemoglobin A1C 6.5 % (<5.7)
== END 2024-04-01 09:35 | disposition home or self-care (01) ==
LOC: ANHSURGERY 09:46
PROVIDERS: PCP Family Medicine; Visit Provider Urology
DX: D49.4 Neoplasm of unspecified behavior of bladder (principal); Z01.812 Encounter for preprocedural laboratory examination; E55.9 Vitamin D deficiency, unspecified; E53.8 Deficiency of other specified B group vitamins; M10.00 Idiopathic gout, unspecified site; Z12.5 Encounter for screening for malignant neoplasm of prostate; E78.5 Hyperlipidemia, unspecified; R73.03 Prediabetes
CPT/HCPCS: 36415; 80061; 82306; 82607; 83036; 84153; 84443; 84550; 85610; 85730; 87086; G0103

== ENCOUNTER 2024-04-06 00:36 | Day surgery (SDC) | payer MEDICARE, SELFPAY ==
[2024-03-31 09:25] VITALS: BMI 28.4
--- NOTE | 2024-03-31 09:32 | PC.NURSE ---
Addendum entered by Shailesh Finn RN 03/31/24 10:11: Stop Fior on 04-03-2024 , per Kristina at Dr. Cortez office. Original Note: Report to the Outpatient Waiting Room, entrance under the green pavilion located off [facility], at time _0600_ on date _[id number]_. Planned Procedure Time: _0730_.? Time changes happen often and if your time is changed the preop area will call you the afternoon before. - You and your visitor will be asked to self-screen and do not enter if you have any COVID symptoms. Please call surgeon if you need to reschedule. - A mask is optional within the hospital at this time. Patients may have clear liquids (water, carbonated beverages, clear teas, apple juice) until 3 hours prior to surgery with a maximum of 20 ounces. - No food from midnight until time of surgery and no smoking Take only the following medications with a SIP of water on the morning of surgery: __Hydralazine DO NOT STOP ANY OF YOUR OTHER PRESCRIPTION MEDICATIONS PRIOR TO SURGERY EXCEPT THE FOLLOWING Medications to discontinue per physician All vitamins Date to take last [id number] Please no make-up, nail bengali, hairspray, perfume, deodorant, or body powder the day of surgery.? No jewelry (including any body piercings) or valuables the day of surgery, leave them at home.? Please take a shower or bath the night before, or the morning of, surgery with an antibacterial soap.? Wear comfortable, loose fitting clothing.? - Jewelry must be removed prior to entering the operating room.? Rings and piercings that are not removed may be cut off. - The hospital will not accept responsibility for valuables.? - Please leave all valuables, including medications, at home the day of surgery. If you are going home after surgery, a licensed driver guide must drive you home.? - NO public transportation without another adult if you receive anesthesia. - We recommend that an adult stay with you for 24 hours following discharge. - We also recommend that you do not drive, make important decision, drink alcoholic beverages, or take any drugs that were not prescribed by your health care provider for at least 24 hours after your discharge time. Follow any additional instructions given to you from your surgeon. Telephone instructions given to __Bill___and asked if any additional questions and then verbalized understanding. Patient advised to call surgeon office or pre surgery nurse liaison [phone] if any additional questions.
[2024-04-06] VITALS (15 sets, daily range): BP systolic 112–142; BP diastolic 65–78; PULSE 62–87; RESP 12–20; TEMP 36.5–36.8; O2SAT 92–100; BMI 29.7
[2024-04-06] MEDS: LACTATED RINGERS 1,000 ML 30 ML IV CONT (06:30)
--- NOTE | 2024-04-06 07:14 | WPDANESEPPF ---
Anes - Initial Pre Proc Eval Procedure: Operation Date: 04/06/24 07:30 Proposed Procedures p Trans Urethral Resection Bladder Tumor, - Artem Cortez MD s Possible Trans Urethral Resection Prostate - Artem Cortez MD Date/Time: 04/06/24 07:14 Surgeon: Artem Cortez MD Pre Op Diagnosis: gross hematuria, bladder tumors Patient Data Age: 78 Gender: M Height: 1.78 m Weight: 90 kg Allergies Allergy/AdvReac Type Severity Reaction Status Date / Time No Known Allergies Allergy Verified 03/31/24 09:24 Home Medications Medication Instructions Recorded Confirmed Type apixaban 5 mg tablet (Eliquis) 5 mg PO BID #20 tabs 03/13/21 04/01/24 Rx cholecalciferol (vitamin D3) 50 50 mcg PO BID 03/13/21 04/01/24 History mcg (2,000 unit) capsule magnesium 250 mg tablet 250 mg PO BID 03/13/21 04/01/24 History lisinopril 40 mg tablet 40 mg PO DAILY #90 tabs 03/09/24 04/01/24 Rx hydralazine 25 mg tablet 25 mg PO BID 04/01/24 04/01/24 History mecobalamin (vitamin B12) 1,000 1,000 mcg sublingual 2XW 04/01/24 History mcg disintegrating tablet,sublingual allopurinol 300 mg tablet 300 mg PO DAILY #90 tabs 04/05/24 Rx Patient hx anesthesia problems: none Family hx anesthesia problems: none Results Review: All pre-operative results and documents have been reviewed as part of the pre-operative evaluation. [facility] Past Medical History Medical History Chronic kidney disease, stage 3b Chronic venous insufficiency of lower extremity Complete heart block (~05/2023) Dyslipidemia Essential (primary) hypertension Hemochromatosis History of colon polyps last colonoscopy in June 2021 which was normal. No further screening recommended due to his age Hx of pancreatitis Hx of venous thromboembolic disease pulmonary embolism and DVT in bilateral lower extremities in February 2017. 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) Hypertension Idiopathic gout Kidney congenitally absent, left Pneumonia 196 Pre-diabetes Rib fracture # - 1992 Seasonal allergies Surgical History Surgical History History of cholecystectomy 06/2014 History of rectal sphincterotomy biliary 03/2015 Status post biventricular cardiac pacemaker insertion (~05/2023) Family History Family History Sibling Hypertension Father Family history of cardiac disorder Social History Social History Smoking status: Never smoker Second hand tobacco smoke exposure: No Alcohol intake: never Substance use: never Substance use type: does not use Do You Feel Safe in your Home?: Yes Lack of Transportation: No Lack of Food: Never True Current Housing: I Have Housing Concerned About Future Housing: No Difficulty Paying Gas/Electric Bills: No Difficulty Paying for Meds: No Currently Unemployed: No Education: Bachelor's Degree Difficulty w/ Childcare or Family Care: No Living arrangements: with family Additional living arrangements comments: Occupation/Education: occupation Additional occupation/education comments: [employer] Gender identity (if verbalized by the patient): Male Sexual Orientation (if Verbalized by the Patient): Straight or Heterosexual Spiritual care concerns: No Anes - Eval Final PreProcedure Day of Procedure 04/06/24 07:14 Patient weight: normal Heart: regular rate and rhythm Lungs: clear to auscultation Airway: Mallampati scale class II Neurological: alert and oriented Last oral intake: >/= 8 hours ASA classification: III Emergent: no Anesthetic plan: proceed Anesthesia type and monitoring: general LMA and standard monitoring Results Review: All pre-operative results and documents have been reviewed as part of the pre-operativ
--- NOTE | 2024-04-06 07:17 | WPDHPUPDATE1 ---
History and Physical Update Update Date/Time: 04/06/24 07:17 History and Physical has been reviewed, including an updated exam of the patient. There are NO changes in the patient's condition. Risks, benefits, and alternatives have been discussed and questions answered. Patient agrees to proceed with procedure. Proceed with turbt, possible turp
[2024-04-06] MEDS: ceFAZolin 2 GM/D5W 50 ML 2 GM/50 ML BAG IVPB (07:25)
[2024-04-06] MEDS: LIDOCAINE HCL 2% GEL UROJET 10 ML PKG MUCOUS MEM (07:42)
--- NOTE | 2024-04-06 08:43 | W.PM.PROC2 ---
Procedure Note - Detailed Date of Procedure 04/06/24 Pre-op Diagnosis gross hematuria, bladder tumors Post-op Diagnosis Same (Extensive and likely unresectable) Procedure Performed Cystoscopy, transurethral resection of large bladder tumor greater than 5 cm with fulguration Surgeon Artem Cortez MD Anesthesia General Description of Procedure Patient was taken to the operative suite correctly identified. Once anesthesia was obtained was placed in dorsal lithotomy position and prepped draped usual sterile fashion. Twenty-four Jamaican resectoscope sheath was inserted in the bladder. Patient has extensive amount of tumor. It involved the right bladder neck area and extends from approximately [address] position all the way to 12:00 p.m.. He has another extensive area of multiple tumors encompassing an overlying the left ureteral orifice left lateral wall posterior wall and bladder neck area. I went ahead and resected the tumor at the bladder neck area on the right side. We used a rollerball for hemostasis. The right ureteral orifice was visualized at all times. On the left we resected as much as we could safely. I then used a large rollerball to fulgurate the areas that were abnormal on the left side. The left ureteral orifice was never truly identified. He does have an atrophic left kidney but is concerned regarding involvement of the distal left ureter given these findings. Given the extensive area of tumor he may require a re-resection or discussion regarding cystectomy and possible left nephro ureterectomy at the same time. 2% viscous lidocaine was inserted into the urethra. Twenty-two Jamaican [address] was placed with 30 cc in the balloon and some gentle traction. Patient was taken recovery stable condition. This completes dictation. Please send a copy of op note to my office. Estimated Blood Loss 25 Drains Yes Packing No Pathology Yes Complications No immediate complications Condition Stable Disposition PACU
[2024-04-06] MEDS: fentaNYL CITRATE INJ (*CRX) 100 MCG/2 ML VIAL 25 MCG IV PUSH ×4 (08:56→09:16)
[2024-04-06] MEDS: DEXTROSE 5%/LACTATED RINGERS 1,000 ML 125 ML IV CONT (10:40)
[2024-04-06] MEDS: DOCUSATE SODIUM 100 MG CAPSULE PO ×2 (10:41→17:53)
--- NOTE | 2024-04-06 11:00 | ADMGEN ---
This patient, Bentley Campos, was admitted to 3 [facility] Surg Room 320-01. Patient/family oriented to hospital policies and general routines including ID bracelet, bed and alarms, visiting hours, pain management, procedures, bathroom and other care routines, personal items, smoking policy, room service/diet, and visiting hours. Information on how to activate the Rapid Response Team has been discussed. Patient/Family are encouraged to report perceived risks to care and to ask questions if they do not understand what they are told or what they should do.
[2024-04-06 11:13] LABS: Prothrombin Time 13.6 Seconds (11.1-14.7)
[2024-04-06 11:14] LABS: Partial Thromboplastin Time 32.1 Seconds (22.3-36.8)
[2024-04-06] MEDS: ceFAZolin 1 GM/NS 50 ML 1 GM/50 ML BAG IVPB ×2 (16:00→23:25)
[2024-04-06] MEDS: lisinopriL 20 MG TABLET 40 MG PO (20:22)
[2024-04-07 03:47] VITALS: BP 113/63; PULSE 74; RESP 16; TEMP 36.8; O2SAT 95
[2024-04-07 06:28] LABS: Hematocrit 34.8 % (42.0-52.0); Hemoglobin 11.6 g/dL (14.0-18.0)
[2024-04-07 07:47] VITALS: BP 129/65; PULSE 77; RESP 20; TEMP 36.3; O2SAT 96
[2024-04-07 07:47] LABS: Blood Urea Nitrogen 45 mg/dL (9-20); Calcium 8.3 mg/dL (8.4-10.2); Carbon Dioxide 23 mmol/L (22-30); Chloride 94 mmol/L (98-107); Estimated CRCL calculation 30 ml/min; Estimated Glomerular Filt Rate 34; Glucose 120 mg/dL (65-110); Potassium 4.4 mmol/L (3.4-5.0)
[2024-04-07 08:14] LABS: Anion Gap 12 mmol/L (4-12); Sodium 129 mmol/L (137-145)
[2024-04-07] MEDS: CEPHALEXIN 500 MG CAPSULE PO ×3 (09:32→16:43)
[2024-04-07] MEDS: DOCUSATE SODIUM 100 MG CAPSULE PO ×2 (09:32→16:43)
[2024-04-07 11:47] VITALS: BP 137/70; PULSE 65; RESP 20; TEMP 36.1; O2SAT 97
--- NOTE | 2024-04-07 12:28 | WPDUROPN2 ---
Progress Note: A&P Assessment and Plan (1) Bladder mass: Code(s): N32.89 - Other specified disorders of bladder Status: Acute Assessment and Plan: S/P resection of extensive involvement of bladder with mass. Wean cbi to off. Possible discharge later today if urine remains clear. Remove jordan on friday. Resume eliquis friday. Subjective Subjective Date/Time Seen: 04/07/24 12:28 Post Op day: 1 (Transurethral resection of bladder tumor) Principal diagnosis: bladder tumor Interval history: Doing well overall. Urine pink With minimal CBI at this time. Review of Systems Review of Systems: All systems reviewed & are unremarkable except as noted in HPI and below Exam Const: General: cooperative and comfortable Resp: Effort & Inspection: normal respiratory effort Cardio: Rate: regular rate Rhythm: regular rhythm Urinary Catheter: Urinary Catheter: patent and draining and urine pink Objective Data Vital Signs Vital Signs: Vital Signs - 24 hr 04/06/24 16:00 04/06/24 19:47 04/06/24 21:13 Temperature 36.5 C 36.5 C 36.5 C Pulse Rate 82 87 87 Respiratory Rate 18 18 18 Blood Pressure 128/73 124/78 124/78 Pulse Oximetry 92 94 94 Oxygen Delivery 04/06/24 23:47 04/06/24 20:00 04/07/24 03:47 Temperature 36.5 C 36.8 C Pulse Rate 69 74 Respiratory Rate 20 16 Blood Pressure 112/65 113/63 Pulse Oximetry 97 95 Oxygen Delivery Room Air 04/07/24 07:47 Temperature 36.3 C L Pulse Rate 77 Respiratory Rate 20 Blood Pressure 129/65 Pulse Oximetry 96 Oxygen Delivery Intake/Output Intake/Output: Intake & Output 04/04/24 04/05/24 04/06/24 04/07/24 23:59 23:59 23:59 23:59 Intake Total 990 1240 Output Total 33559 9243 Balance -49946 -954 Meds/Results Medications: Active Medications Generic Name Dose Route Start Last Admin Trade Name Freq PRN Reason Stop Dose Admin Hydrocodone Bitart/Acetaminophen 1 tab 04/06/24 10:02 Hydrocodone/Acetaminophen (*Crx) 5-325 Mg Tablet PO Q4H PRN Pain Rated 1-6 Cephalexin HCl 500 mg 04/07/24 08:00 04/07/24 12:26 Cephalexin 500 Mg Capsule PO 500 mg QID KRISHNA Administration Docusate Sodium 100 mg 04/06/24 10:02 04/07/24 09:32 Docusate Sodium 100 Mg Capsule PO 100 mg BID [facility] Administration Hyoscyamine 0.125 mg 04/06/24 10:02 Hyoscyamine Sulfate 0.125 Mg Tablet SUBLINGUAL Q6H PRN Bladder Spasm Lisinopril 40 mg 04/06/24 21:00 04/06/24 20:22 Lisinopril 20 Mg Tablet PO 40 mg HS [facility] Administration Morphine Sulfate 2 mg 04/06/24 10:02 Morphine Sulfate (*Crx) 2 Mg/Ml Inj IV PUSH Q2H PRN Pain Rated 7-10 Naloxone HCl 0.1 mg 04/06/24 10:02 Naloxone Hcl 0.4 Mg/Ml Vial IV PUSH Q2M PRN Opiate Reversal Ondansetron HCl 4 mg 04/06/24 10:02 Ondansetron Inj 4 Mg/2 Ml Vial IV PUSH Q12H PRN Nausea And Vomiting Labs Labs: Laboratory Results - last 24 hr 04/07/24 05:59 Hgb 11.6 L Hct 34.8 L Sodium 129 L Potassium 4.4 Chloride 94 L Carbon Dioxide 23 Anion Gap 12 BUN 45 H Creatinine 1.90 H Estim Creat Clear Calc 30 Estimated GFR 34 L Glucose 120 H Calcium 8.3 L
[2024-04-07 14:00] VITALS: BP 119/68; PULSE 70; RESP 20; TEMP 35.9; O2SAT 95
--- NOTE | 2024-04-07 15:59 | PM.DS ---
DS: Admitting Diagnosis Discharge Date 04/07/2024 Admitting Diagnosis Bladder mass DS: Discharge Diagnosis Discharge Diagnosis (1) Bladder mass: Code(s): N32.89 - Other specified disorders of bladder Status: Acute DS: Summary Hospital Course Hospital Course: Bentley Campos a 78-year-old male who presented to 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 He had a [address] catheter placed intraoperatively and was started on continuous bladder irrigation. CBI was weaned and was turned off on postoperative day 1. His urine remained clear. He was ambulating without difficulty and tolerating his diet. He felt comfortable with plans for discharge home. He will hold Eliquis for 2 days and resume on 04/09/2024. He will go home with his Townsend catheter in place and will follow-up for catheter removal on 04/12/2024. He will continue a course of Levaquin as an outpatient for additional 5 days. We discussed worrisome signs and symptoms for which to return. He was discharged in stable condition on 04/07/2024. Status at Discharge Overall status at discharge: patient is progressing back to baseline Time Spent with Patient Time attestation: Total time spent providing and/or coordinating discharge services: 35 minutes Time spent: Greater than 30 minutes Exam Narrative: General: Awake, alert, comfortable, no acute distress HEENT: Normocephalic, atraumatic, sclerae anicteric Respiratory: Normal respiratory effort, no accessory muscle use Abdomen: Nondistended, soft, nontender : Three-way catheter clear urine with CBI off Skin: Normal coloration, warm and dry Neurologic: No focal neuro deficits noted Psychiatric: Appropriate mood and affect, judgment and insight intact DS: Data Data Completed and Pending Completed studies during hospitalization: Pending at discharge 04/06/24 08:22 Surgical [PTH] Routine Labs on day of discharge: Labs from last 24 hours 04/07/24 05:59 Hgb 11.6 L Hct 34.8 L Sodium 129 L Potassium 4.4 Chloride 94 L Carbon Dioxide 23 Anion Gap 12 BUN 45 H Creatinine 1.90 H Estim Creat Clear Calc 30 Estimated GFR 34 L Glucose 120 H Calcium 8.3 L Discharge Plan Discharge Attending physician on discharge: Artem Cortez Discharging Clinician: Lyla Taylor Patient Disposition: Home, Self-Care Activity: as tolerated Diet: regular Discharge Instructions: Hold Eliquis. Resume taking on 04/09/24 Continue Townsend catheter. Call the office or go to the ER if you have any issues with the catheter including if the catheter becomes dislodged, is not draining, or if you are passing large clots Begin taking Levaquin once daily for the next 5 days You have an appointment on 04/12/24 at 10:00 am to have your catheter removed. See below for office information Patient Instructions: Antibiotic Form Stand Alone Forms: General Discharge Information Follow-up/Referrals: Lyla Taylor, LEELA [Physician Felt Machine Mechanic] - 04/12/24 10:00 am Discharge Medications: New levofloxacin 500 mg tablet 500 mg PO DAILY Qty: 5 0RF docusate sodium 100 mg Capsule 100 mg PO BID Qty: 2 0RF Continued hydralazine 25 mg tablet 25 mg PO BID cholecalciferol (vitamin D3) 50 mcg (2,000 unit) capsule 50 mcg PO BID magnesium 250 mg tablet 250 mg PO BID lisinopril 40 mg tablet 40 mg PO DAILY Qty: 90 3RF mecobalamin (vitamin B12) 1,000 mcg tablet,disintegrating 1,000 mcg sublingual 2XW Rx Instructions: place tablet under tongue and allow to dissolve for at least30 secs before swallowing, says only takes once a day. allopurinol 300 mg tablet 300 mg PO DAILY Qty: 90 1RF Hold Instructions: .Provider Order Held Eliquis 5 mg tablet 5 mg PO BID Qty: 20 0RF Hold Instructions: Resume on 06/02/23. Date
== END 2024-04-08 08:47 | disposition home or self-care (01) ==
LOC: ANHSURGERY 05:46 → ANH3MEDSUR 10:07
PROVIDERS: PCP Family Medicine; Visit Provider Urology
PROC: 0TBB8ZZ Excision of Bladder, Via Natural or Artificial Opening Endoscopic (ICD-10-PCS; CPT 52240; principal; 2024-04-06 07:30)
DX: C67.8 Malignant neoplasm of overlapping sites of bladder (principal); N32.89 Other specified disorders of bladder; I12.9 Hypertensive chronic kidney disease with stage 1 through stage 4 chronic kidney disease, or unspecified chronic kidney disease; N18.32 Chronic kidney disease, stage 3b; E78.5 Hyperlipidemia, unspecified; E83.119 Hemochromatosis, unspecified; R73.03 Prediabetes; I87.2 Venous insufficiency (chronic) (peripheral); I44.2 Atrioventricular block, complete; Z79.01 Long term (current) use of anticoagulants; Z98.890 Other specified postprocedural states; Z90.49 Acquired absence of other specified parts of digestive tract; Z90.5 Acquired absence of kidney; Z95.0 Presence of cardiac pacemaker; Z86.711 Personal history of pulmonary embolism; Z86.010 Personal history of colon polyps; Z86.718 Personal history of other venous thrombosis and embolism; Z82.49 Family history of ischemic heart disease and other diseases of the circulatory system
CPT/HCPCS: 52240; 36415; 80048; 85014; 85018; 85610; 85730; 88305; A9270; J0690; J1100; J2405; J2704; J3010; J7120; J7121

== ENCOUNTER 2024-04-27 08:15 | Outpatient (CLI) | payer MEDICARE, SELFPAY ==
[2024-04-27 08:48] LABS: Hemoglobin 13.1 g/dL (14.0-18.0); Mean Corpuscular HGB Conc 33.6 g/dl (32-36); Mean Corpuscular Hemoglobin 35.6 pg (26-34); Mean Platelet Volume 9.4 fl (7.4-10.4); Platelet Count Result 192 k/mm3 (150-375); Red Blood Count 3.68 M/mm3 (4.6-6.20); Red Cell Distribution Width 13.4 % (11.5-14.5); White Blood Count 6.8 K/mm3 (4.5-10.0)
[2024-04-27 08:57] LABS: Add Urine Microscopic? YES; Appearance Urine Clear (Clear); Bacteria Urine None Seen /hpf; Bilirubin Urine Negative (Negative); Blood Urine 2+ (Negative); Color Urine Yellow (Yellow); Glucose Urine UA Negative (Negative); Ketones Urine Negative (Negative); Leukocyte Esterase Ur 2+ LEU/UL (Negative); Nitrate Urine Negative (Negative); Non Pathogenic Casts 0-2; Protein Urine 2+ mg/dL (Negative); RBC Urine 51-100 /hpf (0-2); Specific Grav Ur 1.016 (1.001-1.035); Squamous Epithelial Cell Urine None Seen /hpf (Few); Urobilinogen Urine 0.2 mg/dL (<2.0); WBC Urine >100 /hpf (0-3)
[2024-04-27 09:02] LABS: Anion Gap 8 mmol/L (4-12); Blood Urea Nitrogen 29 mg/dL (9-20); Calcium 9.1 mg/dL (8.4-10.2); Carbon Dioxide 27 mmol/L (22-30); Chloride 104 mmol/L (98-107); Estimated Glomerular Filt Rate 37; Glucose 145 mg/dL (65-110); Phosphorus 3.8 mg/dL (2.5-4.5); Potassium 4.6 mmol/L (3.4-5.0); Sodium 139 mmol/L (137-145)
[2024-04-27 09:12] LABS: Parathyroid Intact 39.3 pg/mL (14.5-75.2)
[2024-04-27 09:36] LABS: Creatinine Urine 124.7 mg/dL; Total Protein Urine Random 80 mg/dL; Ur Ttl Prot Creatinine Ratio 0.64 mg/mg (0-0.20)
== END 2024-04-27 08:16 | disposition home or self-care (01) ==
LOC: ANHLAB 08:17
PROVIDERS: PCP Family Medicine; Visit Provider Internal Medicine Nephrology
DX: I12.9 Hypertensive chronic kidney disease with stage 1 through stage 4 chronic kidney disease, or unspecified chronic kidney disease (principal); N18.32 Chronic kidney disease, stage 3b; E83.110 Hereditary hemochromatosis
CPT/HCPCS: 36415; 80069; 81001; 82570; 83970; 84156; 85027

== ENCOUNTER 2024-04-28 07:11 | Outpatient (CLI) | payer MEDICARE, SELFPAY | END 2024-04-28 07:12 | disposition home or self-care (01) | PROVIDERS: PCP Family Medicine; Visit Provider Internal Medicine Nephrology | DX: R31.9 Hematuria, unspecified (principal); R82.81 Pyuria | CPT/HCPCS: 87086 ==

== ENCOUNTER 2024-05-14 13:23 | Outpatient (CLI) | payer MEDICARE, SELFPAY ==
[2024-05-14 15:09] LABS: Anion Gap 8 mmol/L (4-12); Blood Urea Nitrogen 45 mg/dL (9-20); Calcium 9.6 mg/dL (8.4-10.2); Carbon Dioxide 28 mmol/L (22-30); Chloride 104 mmol/L (98-107); Estimated Glomerular Filt Rate 26; Glucose 122 mg/dL (65-110); Potassium 4.5 mmol/L (3.4-5.0); Sodium 140 mmol/L (137-145)
== END 2024-05-14 13:24 | disposition home or self-care (01) ==
LOC: ANHGOSHLAB 13:25
PROVIDERS: PCP Family Medicine; Visit Provider Internal Medicine Nephrology
DX: N18.32 Chronic kidney disease, stage 3b (principal)
CPT/HCPCS: 36415; 80048

== ENCOUNTER 2024-08-03 07:45 | Outpatient (CLI) | payer MEDICARE, SELFPAY ==
--- NOTE | 2024-08-03 07:54 | ECG_ITS ---
Test Date: 2024-08-03 08:17:07 Measurements Intervals [place] Rate: 85 P: 31 MN: 251 QRS: -78 QRSD: 137 T: 92 QT: 381 QTc: 453 Interpretive Statements ELECTRONIC VENTRICULAR PACEMAKER ABNORMAL RHYTHM ECG No previous ECG available for comparison Electronically Signed On 08-03-2024 10:48:57 LOPPER by Buddy Miller M.D.
[2024-08-03 08:38] LABS: Basophils Absolute Auto 0.1 K/mm3 (0.0-0.1); Basophils Percent Auto 0.9 % (0.2-1.2); Eosinophils Absolute Auto 0.4 K/mm3 (0-0.3); Eosinophils Percent Auto 4.6 % (0-4.4); Hematocrit 44.5 % (42.0-52.0); Hemoglobin 14.7 g/dL (14.0-18.0); Immature Granulocyte Absolute 0.02 K/mm3 (0.00-0.031); Immature Granulocyte Percent A 0.3 % (0-0.5); Lymphocytes Absolute Auto 2.21 K/mm3 (0.9-3.2); Lymphocytes Percent Auto 28.9 % (18.3-44.2); Mean Corpuscular Hemoglobin 35.3 pg (26-34); Mean Corpuscular Volume 106.7 fl (80-100); Mean Platelet Volume 9.6 fl (7.4-10.4); Monocytes Absolute Auto 0.9 K/mm3 (0.1-0.6); Monocytes Percent Auto 11.4 % (2.6-8.5); Neutrophils Absolute Auto 4.1 K/mm3 (1.3-6.7); Neutrophils Percent Auto 53.9 % (45.5-73.1); Platelet Count Result 166 k/mm3 (150-375); Red Blood Count 4.17 M/mm3 (4.6-6.20); Red Cell Distribution Width 13.7 % (11.5-14.5); White Blood Count 7.7 K/mm3 (4.5-10.0)
[2024-08-03 08:51] LABS: Anion Gap 10 mmol/L (4-12); Blood Urea Nitrogen 41 mg/dL (9-20); Calcium 9.3 mg/dL (8.4-10.2); Carbon Dioxide 26 mmol/L (22-30); Chloride 103 mmol/L (98-107); Estimated Glomerular Filt Rate 32; Glucose 109 mg/dL (65-110); Potassium 4.8 mmol/L (3.4-5.0); Sodium 139 mmol/L (137-145)
[2024-08-03 09:05] LABS: INR 1.2; Partial Thromboplastin Time 36.3 Seconds (22.3-36.8); Prothrombin Time 15.8 Seconds (11.1-14.7)
[2024-08-03 09:10] LABS: Platelet Estimate Adequate (Adequate); Schistocytes None Seen
[2024-08-03 09:11] LABS: Macrocytosis 2+ (NORMAL)
[2024-08-03 09:34] LABS: Albumin Level 3.9 g/dL (3.5-5.1); Phosphorus 3.7 mg/dL (2.5-4.5)
== END 2024-08-03 07:46 | disposition home or self-care (01) ==
PROVIDERS: PCP Family Medicine; Visit Provider Urology
DX: Z01.818 Encounter for other preprocedural examination (principal); C67.9 Malignant neoplasm of bladder, unspecified; Z95.0 Presence of cardiac pacemaker
CPT/HCPCS: 36415; 80048; 82040; 84100; 85025; 85610; 85730; 87086; 93005

== ENCOUNTER 2024-08-10 00:08 | Day surgery (SDC) | payer MEDICARE, SELFPAY ==
[2024-08-02 13:42] VITALS: BMI 27.8
--- NOTE | 2024-08-02 14:00 | PC.NURSE ---
Report to the Outpatient Waiting Room, entrance under the green pavilion located off [facility], at time ___9:00AM____ on date ___08/10/24____. Planned Procedure Time: ___11:00AM .? Time changes happen often and if your time is changed the preop area will call you the afternoon before. - You and your visitor will be asked to self-screen and do not enter if you have any COVID symptoms. Please call surgeon if you need to reschedule. - A mask is optional within the hospital at this time. Patients may have clear liquids (water, carbonated beverages, clear teas, apple juice) until 3 hours prior to surgery (8:00AM) with a maximum of 20 ounces. - No food from midnight until time of surgery and no smoking. This includes no chewing gum, candy or mints. Take only the following medications with a SIP of water on the morning of surgery: ____HYDRALAZINE DO NOT STOP ANY OF YOUR OTHER PRESCRIPTION MEDICATIONS PRIOR TO SURGERY EXCEPT THE FOLLOWING Medications to discontinue per physician ____HOLD ELIQUIS 3 DAYS PRE-OP PER DR KRUSE. HOLD ALL VITAMINS/SUPPLEMENTS 3 DAYS PRE-OP PER ANESTHESIA. Date to take last dose 08/06/24 Please no make-up, nail icelandic, hairspray, perfume, deodorant, or body powder the day of surgery.? No jewelry (including any body piercings) or valuables the day of surgery, leave them at home.? Please take a shower or bath the night before, or the morning of, surgery with an antibacterial soap.? Wear comfortable, loose fitting clothing.? - Jewelry must be removed prior to entering the operating room.? Rings and piercings that are not removed may be cut off. - The hospital will not accept responsibility for valuables.? - Please leave all valuables, including medications, at home the day of surgery. If you are going home after surgery, a licensed cdl dedicated truck driver must drive you home.? - NO public transportation without another adult if you receive anesthesia. - We recommend that an adult stay with you for 24 hours following discharge. - We also recommend that you do not drive, make important decision, drink alcoholic beverages, or take any drugs that were not prescribed by your health care provider for at least 24 hours after your discharge time. Follow any additional instructions given to you from your surgeon. Telephone instructions given to ___PATIENT and asked if any additional questions and then verbalized understanding. Patient advised to call surgeon office or pre surgery nurse liaison [phone] if any additional questions.
[2024-08-10] VITALS (28 sets, daily range): BP systolic 105–137; BP diastolic 61–81; PULSE 60–104; RESP 10–20; TEMP 36.1–36.8; O2SAT 92–99; BMI 26.9
--- OUTSIDE RECORDS SUMMARY | 2024-08-10 00:11 | XMS_ITS | Encounter Summary ---
Author Organization [facility] Address [address] [place] [address] Care Team Providers Care Boiler Inspector Name Role Phone Lv Rothman MD Primary Care Provider [phone] Encounter Details Date Type Department Care Team (Late st Contact Info) Description 02/10/2020 Lab Requisition [facility] Care DermPath Lab [address] [facility] [place] [phone] Grayson Cason MD [address] [place] [address] Social History Tobacco Use Types Packs/Day Years Used Date Smoking Tobacco: Never Assessed Sex and Gender Information Value Date Recorded Sex Assigned at Not on file Gender Identity Not on file Sexual Orientation Not on file documented as of this encounter Plan of Treatment Not on file documented as of this encounter Procedures Procedure Name Priority Date/Time Associated Diagnosis Comments DERMATOPATHOLOGY Routine 02/09/2020 12:0 0 AM CDT documented in this encounter Results * DERMATOPATHOLOGY (02/09/2020 12:00 AM CDT) Case Report Dermatopathology Report ? Case: [id number] ? Authorizing Provider: ??Grayson aCson MD ?Collected: ? 02/09/2020 12:00 AM ? Ordering Location: ? [facility] DermPath Lab ?Received: ?02/10/2020 11:51 AM ? Pathologist: ? Selene Marcus MD ? Specimen: ?Skin, left zygoma ? 0 4:30 PM CDT DERMATOPATHOLOGY LABORATORY Final Diagnosis Specimen A. 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 0 4:30 PM CDT DERMATOPATHOLOGY LABORATORY Gross Description Specimen A: Received is one formalin filled container labeled with the patient's name and designated left zygoma. The specimen consists of a shave biopsy measuring [id number]. Jar 0. 0 4:30 PM CDT DERMATOPATHOLOGY LABORATORY Microscopic Description Specimen A. SKIN, left zygoma: The epidermis shows parakeratosis, full thickness disorderly maturation of keratinocytes, mitoses at different levels, and dyskeratotic cells. The lesion extends to the base as adnexal extension. 0 4:30 PM CDT DERMATOPATHOLOGY LABORATORY Disclaimer An external and internal positive and negative controls are appropriate for the histochemical, immunohistochemical and immunofluorescence stain(s) in this case (if any), except where stated explicitly. The performance characteristics of the stain(s) cited in this report were developed and its performance characteristic determined by the Dermatopathology Laboratory at [facility], directed by Dr. Martinez Serna. These tests need not be, and therefore are not, approved by the [place] Food and Drug Administration. The tests are used for clinical purposes. Billing Codes Specimen Charges Stain Charges 38809 1 0 4:30 PM CDT DERMATOPATHOLOGY LABORATORY Embedded Images 0 4:30 PM CDT DERMATOPATHOLOGY LABORATORY Pathology/Cytolog y TISSUE SPECIMEN FROM SKIN / Unknown 02/09/2020 02/10/2020 11:51 AM CDT Grayson Cason MD LAB - PATHOLOGY/CYTO LOGY ORDERABLES DERMATOPATHOLOGY LABORATORY [facility] - Department of Dermatology [facility]/[address] [phone] documented in this encounter Visit Diagnoses Not on filedocumented in this encounter Care Teams Boiler Inspector Relationship Specialty Start Date End Date Lv Rothman MD [address] [place] [address] [place] [phone] PCP - General 04/14/12 documented as of this encounter
--- OUTSIDE RECORDS SUMMARY | 2024-08-10 00:11 | XMS_ITS | Encounter Summary ---
Author Organization [facility] Address [address] [place] [address] Care Team Providers Care Insurance Verification Rep Name Role Phone Lv Rothman MD Primary Care Provider [phone] Encounter Details Date Type Department Care Team (Late st Contact Info) Description 10/22/2017 Lab Requisition [facility] Care DermPath Lab [address] [facility] [place] [phone] Grayson Cason MD [address] [place] [address] Social History Tobacco Use Types [...] Priority Date/Time Associated Diagnosis Comments DERMATOPATHOLOGY Routine 10/21/2017 12:0 0 AM CDT documented in this encounter Results * DERMATOPATHOLOGY (10/21/2017 12:00 AM CDT) Case Report Dermatopathology Report ? Case: [id number] ? Authorizing Provider: ??Grayson Cason MD ?Collected: ? 10/21/2017 12:00 AM ? Pathologist: ? Evgeny Serna MD ? Received: ?10/22/2017 10:35 AM ? Specimens: ?? A) - Skin, right helix rim ? B) - Skin, left upper lat back ? 6:12 PM CDT DERMATOPATHOLOGY LABORATORY Final Diagnosis Specimen A. SKIN, right helix rim: HYPERPLASTIC (HYPERTROPHIC) ACTINIC KERATOSIS (L57.0) PRESENT AT MARGIN Specimen B. SKIN, left upper lat back: HYPERPLASTIC (HYPERTROPHIC) ACTINIC KERATOSIS (L57.0) PRESENT AT MARGIN 6:12 PM CDT DERMATOPATHOLOGY LABORATORY Clinical History A: R/O HAK, SCC, BCC. Check margins. B: R/O SCC. Check margins. 6:12 PM CDT DERMATOPATHOLOGY LABORATORY Gross Description Specimen: A: Received is one formalin filled container labeled with the patient's name and designated right helix rim. The specimen consists of a shave biopsy measuring [id number].The margin is inked green. Jar 0. Specimen: B: Received is one formalin filled container labeled with the patient's name and designated left upper lat back. The specimen consists of a shave biopsy measuring [id number].The margin is inked green. Jar 0. 6:12 PM CDT DERMATOPATHOLOGY LABORATORY Microscopic Description Specimen A. SKIN, right helix rim: There is hyperkeratosis alternating with parakeratosis. There is epidermal hyperplasia with disorderly maturation of keratinocytes with nuclear pleomorphism confined to the lower half of the epidermis. This lesion is present at the margin of the specimen. Specimen B. SKIN, left upper lat back: There is hyperkeratosis alternating with parakeratosis. There is epidermal hyperplasia with disorderly maturation of keratinocytes with nuclear pleomorphism confined to the lower half of the epidermis. This lesion is present at the margin of the specimen. 8 6:12 PM CDT DERMATOPATHOLOGY LABORATORY Disclaimer An external and internal positive and negative controls are appropriate for the histochemical, immunohistochemical and immunofluorescence stain(s) in this case (if any), except where stated explicitly. The performance characteristics of the stain(s) cited in this report were developed and its performance characteristic determined by the Dermatopathology Laboratory at [facility]. These tests need not be, and therefore are not, approved by the [place] Food and Drug Administration. The tests are used for clinical purposes. Billing Codes Specimen Charges Stain Charges 90551 94856 1 1 8 6:12 PM CDT DERMATOPATHOLOGY LABORATORY Embedded Images 8 6:12 PM CDT DERMATOPATHOLOGY LABORATORY Pathology/Cytology TISSUE SPECIMEN FROM SKIN / Unknown 10/21/2017 10/22/2017 10:35 AM CDT Miscellaneous samples (specimen) TISSUE SPECIMEN FROM SKIN / Unknown 10/21/2017 10/22/2017 10:35 AM CDT Grayson Cason MD LAB - PATHOLOGY/CYTO LOGY ORDERABLES DERMATOPATHOLOGY LABORATORY [facility] - Department of Dermatology [address] [place] [address] 5th Floor Lab [address] [phone] documented in this encounter Visit Diagnoses Not on filedocumented in this encounter Care Teams Insurance Verification Rep Relationship Specialty Start Date End Date Lv Rothman MD [address] [place] [address] PCP - General 04/14/12 documented as of this encounter
--- OUTSIDE RECORDS SUMMARY | 2024-08-10 00:11 | XMS_ITS | Clinical Summary ---
Author Organization [facility] Address [address] [place] [address] Care Team Providers Care Admin Secretary Name Role Phone Chris Rey MD Primary Care Provider Allergies No known active allergies Medications cholecalcifero l, Vitamin D3, 2,000 unit Tablet Take by mouth. 08/19/19 19 Active Cyanocobalamin -Methylcobalam in 600-600 mcg Tablet, Sublingual Take by mouth. 04/13/20 18 Active mecobalamin, vitamin B12, (B12 Active) 1,000 mcg Tablet, Chewable Take by mouth. 04/13/20 18 Active allopurinoL (ZYLOPRIM) 300 mg tablet Take by mouth. 04/11/20 18 Active hydrALAZINE (APRESOLINE) 25 mg tablet TAKE ONE TABLET (25MG) BY MOUTH TWICE A DAY 07/22/19 24 Active lisinopriL (PRINIVIL) 40 mg tablet Take 40 mg by mouth daily. Active apixaban (Eliquis) 5 mg tabletIndicati ons:Hypercoagu lable state,Acute deep vein thrombosis (DVT) of proximal vein of lower extremity, unspecified laterality (CMS/HCC) TAKE 1 TABLET BY MOUTH TWICE A DAY 60 Tablet 2 07/20/19 25 Active Eliquis 5 mg tabletIndicati ons:Hypercoagu lable state,Acute deep vein thrombosis (DVT) of proximal vein of lower extremity, unspecified laterality (CMS/HCC) take 1 tablet by mouth twice a day 60 Tablet 5 10/31/19 24 025 Discontinued enoxaparin (LOVENOX) 120 mg/0.8 mL injection Inject 0.9 mL (135 mg) by subcutaneous injection every 24 hours for 4 days. 3.6 mL 07/30/19 25 025 Active Problems Problem Noted Date Diagnosed Date Iron overload 05/26/2019 Macrocytic anemia 05/26/2019 Vitamin B12 deficiency (non anemic) 03/18/2017 Hypercoagulable state 03/18/2017 Resolved Problems Problem Noted Date Diagnosed Date Resolved Date Iron deficiency anemia 03/18/201705/26 Encounters Date Type Department Care Team Description 08/04/2024 External Device Data [facility] ABSTRACTION Provider, Abstract 08/04/2024 External Device Data [facility] ABSTRACTION Provider, Abstract 07/30/2024 Abstract [facility] Oncology and Hematology [place] [address] [place] [address] Sushant Kirby MD [facility]/30[facility] [address] [place] [address] Sushant Kirby MD 07/18/2024 Refill [facility] Oncology and Hematology [facility] [address] [place] [address] Sushant Kirby MD Hypercoagulable state; Acute deep vein thrombosis (DVT) of proximal vein of lower extremity, unspecified laterality (CMS/HCC) from Last 3 Months Family History Medical History Relation Name Comments Heart Disease Father No Known Problems Mother Hypertension Sister Relation Name Status Comments Father Mother Sister Alive Social History Tobacco Use Types Packs/Day Years Used Date Smoking Tobacco: Never Smokeless Tobacco: Never Tobacco Cessation:Counseling Given: Not Answered Alcohol Use Standard Drinks/Week Comments Yes 0 (1 standard drink = 0.6 oz pur e alcohol) occasional Sex and Gender Information Value Date Recorded Sex Assigned at Not on file Legal Sex Male 12:17 PM CDT Gender Identity Not on file Sexual Orientation Not on file Last Filed Vital Signs Vital Sign Reading Time Taken Comments Blood Pressure 138/69 03/26/2024 8:39 AM CDT Pulse 86 03/26/2024 8:39 AM CDT Temperature 36.5 ??C (97.7 ??F) 03/26/2024 8:39 AM CD T Respiratory Rate 18 03/26/2024 8:39 AM CDT Oxygen Saturation 96% 03/26/2024 8:39 AM CDT Inhaled Oxygen Concentration - - Weight 89.4 kg (197 lb) 03/26/2024 8:39 AM CDT Height 177.8 cm (5' 10 ) 11/14/2021 8:59 AM CDT Body Mass Index 28.27 11/14/2021 8:59 AM CDT Plan of Treatment Upcoming Encounters Date Type Department Care Team (Late st Contact Info) Description 09/24/2024 8:30 AM CDT Office Visit [facility] Oncology and Hematology - [place] [address] [facility] [address] [place] [address] Sushant Kirby MD [address] [facility] [address] [place] [address] Health Maintenance Due Date Last Done Comments DTAP/TDAP/TD VACCINES (1 - Tdap) 1964 Traditional Medicare (ACO) A nnual Wellness Visit 1964 ZOSTER VACCINE (1 of 2) 1994 RSV VACCINE (60+ or ) (1 - 1-dose 75+ series) 2019 INFLUENZA VACCINE (#1) 2024 2, 03/28/2021, 03/27/2019, Additional history exists COVID-19 Vaccine (2 - 2023-2 5 season) 2024 09/18/2020 PNEUMOCOCCAL VACCINE 65+ YEARS Completed 0 03/21/2020, 03/27/2019, 02/11/2014 COLORECTAL SCREENING Discontinued 06/20/2021, 08/16/19 15 Colorectal Cancer Screening Discontinued FIT-DNA Q 3 years Discontinued FIT/FOBT Q 1 year Discontinued Flex Sig/CT Colonography Q 5 years Discontinued Insurance MEDICARE PART A AND B [facility] SUPP MEDICARE PART A AND B [employer] [facility] SUPP Care Teams Admin Secretary Relationship Specialty Start Date End Date Chris Rey MD [address] [place] [phone] PCP - General Family Practice 03/18/17
--- OUTSIDE RECORDS SUMMARY | 2024-08-10 00:11 | XMS_ITS | Referral Summary ---
Author Organization [facility] Address [address] [place] [address] Care Team Providers Care Skatesman Name Role Phone Lv Rothman MD Primary Care Provider [phone] Source Comments [facility],non-owned Affiliates and Associated Physician Practices is amultiple site organization consisting of ambulatory clinics and hospital sitesin [place], [place], [place] and [place]. This disclosure is being madepursuant to the Care Everywhere program and may not contain all information available regarding this patient. Last updated [employer] [facility] Allergies No known active allergies Medications * Be aware that medications may not be up to date on this document. Alwaysverify current medications with the patient. Medication Sig Dispensed Refills Start Date End Date Status allopurinol (ZYLOPRIM) 300 MG tablet 04/11/2018 Active apixaban (ELIQUIS) 5 MG tablet TAKE 1 TABLET BY MOUTH TWICE A DAY 09/25/2019 Active vitamin D, cholecalciferol, (VITAMIN D-3 SUPER STRENGTH) 50 MCG (1999 UT) tablet 08/19/2018 Active lisinopril (PRINIVIL; ZESTRIL) 10 MG tablet Take 20 mg by mouth once daily 07/13/2019 Active Methylcobalamin 1 MG 04/13/2018 Acti ve BYSTOLIC 20 MG tablet Take 20 mg by mouth once daily 03/11/2020 Active Active Problems Problem Noted Date Diagnosed Date H/O blood clots 03/30/2020 Iron overload 05/26/2019 Macrocytic anemia 05/26/2019 Essential (primary) hypertension 04/13/2018 Gout 04/13/2018 Other pulmonary embolism without acute cor pulmo nale 04/13/2018 Renal function test abnormal 04/13/2018 Hypercoagulable state 03/18/2017 Iron deficiency anemia 03/18/2017 Vitamin B12 deficiency (non anemic) 03/18/2017 Social History Tobacco Use Types Packs/Day Years Used Date Smoking Tobacco: Never Smokeless Tobacco: Never Alcohol Use Standard Drinks/Week Comments Not Currently 0 (1 standard drink = 0.6 oz pur e alcohol) Sex and Gender Information Value Date Recorded Sex Assigned at Not on file Gender Identity Not on file Sexual Orientation Not on file Last Filed Vital Signs Vital Sign Reading Time Taken Comments Blood Pressure 152/87 03/30/2020 9:36 AM CDT Pulse 41 03/30/2020 9:36 AM CDT Temperature - - Respiratory Rate - - Oxygen Saturation - - Inhaled Oxygen Concentration - - Weight 86.2 kg (190 lb) 03/30/2020 7:56 AM CDT Height 177.8 cm (5' 10 ) 03/30/2020 7:56 AM CDT Body Mass Index 27.26 03/30/2020 7:56 AM CDT Plan of Treatment Not on file Care Teams Skatesman Relationship Specialty Start Date End Date Lv Rothman MD [address] [place] [address] PCP - General 04/14/12
--- OUTSIDE RECORDS SUMMARY | 2024-08-10 00:11 | XMS_ITS | Clinical Summary ---
Author Organization [facility] Address [address] [place] [address] Phone Care Team Providers Care Straw Hat Brim Raiser Operator Name Role Phone Chris Rey MD Primary Care Provider Allergies No known active allergies Medications Medication Sig Dispensed Refills Start Date End Date Status cholecalciferol (VITAMIN D3 SUPER STRENGTH) 2000 units tablet 1 dialy 0 08/19/2018 Active allopurinol (ZYLOPRIM) 300 MG tablet 1 daily 0 04/11/2018 Active Nebivolol HCl (BYSTOLIC) 20 MG tablet 1 daily 0 04/11/2018 Active aspirin 325 MG tablet Take 325 mg by mouth daily Active FLUZONE HIGH-DOSE 0.5 ML suspension prefilled syringe TO BE ADMINISTERED BY PHARMACIST FOR IMMUNIZATION 0 03/27/2019 Active ELIQUIS 5 MG tablet Take 5 mg by mouth 2 (two) times a day 09/25/2019 Active Cyanocobalamin-Met hylcobalamin 600-600 MCG sublingual tablet Take by mouth 04/13/2018 Acti ve lisinopril (PRINIVIL) 40 MG tablet Take 1 tablet (40 mg total) by mouth 1 (one) time each day 90 tablet 3 04/17/2022 Active Active Problems Problem Noted Date Diagnosed Date Stage 3a chronic kidney disease 04/13/2018 Essential (primary) hypertension 04/13/2018 Other pulmonary embolism without acute cor pulmo nale 04/13/2018 Gout 04/13/2018 Hypercoagulable state 03/18/2017 Iron deficiency anemia 03/18/2017 Vitamin B12 deficiency (non anemic) 03/18/2017 Immunizations Name Administration Dates Next Due Fluzone High-Dose 03/21/2020 Influenza Split 02/11/2014 Influenza TIV (IM) 04/10/2022,03/28/2021, 019 JAVIER SARS-COV-2 VACCINATION 09/18/2020 Pneumococcal Conjugate 13-Valent 03/27/2019 Pneumococcal Polysaccharide 03/21/2020, 4 Family History Medical History Relation Comments Hypertensive disorder Sibling Kidney disease Neg Hx Relation Status Comments Sibling Social History Tobacco Use Types Packs/Day Years [...] Sign Reading Time Taken Comments Blood Pressure 136/66 04/17/2022 8:55 AM CDT Pulse 50 04/17/2022 8:55 AM CDT Temperature 35.7 ??C (96.3 ??F) 04/17/2022 8:55 AM CD T Respiratory Rate - - Oxygen Saturation - - Inhaled Oxygen Concentration - - Weight 87.5 kg (193 lb) 04/17/2022 8:55 AM CDT Height 177.8 cm (5' 10 ) 04/17/2022 8:55 AM CDT Body Mass Index 27.69 04/17/2022 8:55 AM CDT Plan of Treatment Health Maintenance Due Date Last Done Comments Influenza Vaccine (#1) 2024 , 03/28/2021, 03/27/2019, Additional history exists Pneumococcal PPSV23/PCV13 65 + Years / High and Highest Risk Completed 03/21/2020, 03/27/2019, 02/11/2014 Care Teams Straw Hat Brim Raiser Operator Relationship Specialty Start Date End Date Chris Rey MD [address] [place] [address] PCP - General Internal Medicine 02/17/19
--- OUTSIDE RECORDS SUMMARY | 2024-08-10 00:11 | XMS_ITS | Clinical Summary ---
Author Organization [facility] Address [address], [facility] [address] [place] [address] Phone Care Team Providers Care Brine Tank Separator Operator Name Role Phone Lv Rothman MD Primary Care Provider [phone] Lenin Carrasco DO Unavailable [phone] Medications allopurinol (ZYLOPRIM) 300 MG Tablet Take 200 mg by mouth daily. Active Active Problems No known active problems Immunizations Immunization Administration Dates Next Due Covid-19 Vaccine, Vector-nr, Rs-ad26, Pf, 0.5 Ml ([email or web address]) 09/18/2020 Influenza Vaccine greater than 3 yrs 05/15/2015 Family History Medical History Relation Name Comments Heart Disease Father Heart Disease Mother Hypertension Sister Relation Name Status Comments Father Mother Sister Social History Tobacco Use Types Packs/Day Years Used Date Smoking Tobacco: Never Alcohol Use Standard Drinks/Week Comments No 0 (1 standard drink = 0.6 oz pur e alcohol) Sex and Gender Information Value Date Recorded Sex Assigned at Not on file Legal Sex Male 7:40 PM CDT Gender Identity Not on file Sexual Orientation Not on file 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 Not on file Not on file Not on file Last Filed Vital Signs Vital Sign Reading Time Taken Comments Blood Pressure 128/68 09/21/2015 12:10 PM [employer] Pulse 66 09/13/2015 8:26 AM [employer] Temperature 37 ??C (98.6 ??F) 09/21/2015 12:10 PM [employer] Respiratory Rate 16 09/21/2015 12:10 PM [employer] Oxygen Saturation 94% 09/21/2015 12:10 PM [employer] Inhaled Oxygen Concentration - - Weight 88.5 kg (195 lb) 09/18/2015 3:00 PM [employer] Height 177.8 cm (5' 10 ) 09/18/2015 3:00 PM [employer] W[employer] Body Mass Index 27.98 09/18/2015 3:00 PM [employer] W[employer] Plan of Treatment Health Maintenance Due Date Last Done Comments Hepatitis C Virus (HCV) Screening 1945 TdaP Immunization 1945 Zoster Immunization (1 of 2) 1994 Respiratory Syncytial Virus (RSV) Immunization (Adult) (1 - 1-dose 75+ series) 2019 Influenza Immunization (#1) 03/14/202402/2020, 03/27/2019, 04/26/2018, Additional history exists SARS-COV-2 Immunization ( season) 2024 05/10/2021, 09/18/2020 Pneumococcal Immunization (50+ years) Completed 03/21/2020, 03/27/2019 Pneumococcal Immunization Combined Discontinued 03/21/2020, 03/27/2019 Hepatitis B Immunization Aged Out No longer eligible based on patient's age to complete this topic Meningococcal Immunization (ACWY) Aged Out No longer eligible based on patient's age to complete this topic Rotavirus Immunization Aged Out No lo nger eligible based on patient's age to complete this topic Insurance [facility] MEDICARE Care Teams Brine Tank Separator Operator Relationship Specialty Start Date End Date Lv Rothman MD [address] [place] [id number] PCP - General Family Medicine 09/13/15 Lenin Carrasco DO [address] [place] [address] Gastroenterology 09/13/15
--- OUTSIDE RECORDS SUMMARY | 2024-08-10 00:11 | XMS_ITS | Clinical Summary ---
Author Organization [facility] [address] Address [address] [place] [address] Care Team Providers Care Bearing Grinder Name Role Phone Boyd Sandovalkimberly Cuevana Primary Care Provider Allergies No known active allergies Medications Eliquis 5 mg tablet Take 1 tablet (5 mg total) by mouth 2 (two) times a day 09/25/2019 Active cholecalciferol (VITAMIN D-3) 2000 unit tablet Take by mouth 08/19/2018 Active magnesium gluconate 200 mg tabletIndicatio ns:hypomagnesem ia 1.25 tablets (250 mg total) Active lisinopriL (PRINIVIL,ZESTR IL) 40 mg tablet TAKE 1 TABLET BY MOUTH 1 TIME EACH DAY. 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 Dx; Second Degree AVB. DOI 05/26/2023-[place]. Biotronik remote. Patient will follow with Dr Sandoval. 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 AV block 05/07/2023 Surgical History Surgery Date Site/Laterality Comments CHOLECYSTECTOMY Medical History Medical History Date Comments Atrioventricular block, complete (CMS/HCC) (HCC) Chronic kidney disease Hypertension Colon polyps Pancreatitis Family History Medical History Relation Name Comments Heart disease Father No Known Problems Mother Relation Name Status Comments Father Mother Social History Tobacco Use Types Packs/Day Years Used Date Smoking Tobacco: Never Tobacco Cessation:Counseling Given: Not Answered Personal Safety Answer Date Recorded Getting School Help Needed Not on file 07/17 Sex and Gender Information Value Date Recorded Sex Assigned at Not on file 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 Gender Identity Not on file Sexual Orientation Not on file Obstetrics History Last Filed Vital Signs Vital Sign Reading Time Taken Comments Blood Pressure 138/80 05/07/2023 9:28 AM CDT Pulse 53 05/07/2023 9:28 AM CDT Temperature - - Respiratory Rate - - Oxygen Saturation 98% 05/07/2023 9:28 AM CDT Inhaled Oxygen Concentration - - Weight 90.4 kg (199 lb 6.4 oz) 05/07/2023 9:28 A M CDT Height 177.8 cm (5' 10 ) 05/07/2023 9:28 AM CDT Body Mass Index 28.61 05/07/2023 9:28 AM CDT Plan of Treatment Health Maintenance Due Date Last Done Comments Depression Screening 1944 Fall Risk Assessment 1944 Hepatitis B Screening 1962 Well Visit 65+ 2009 Covid-19 Vaccine (2023-2 5 season) 2024 04/26/2023, 04/24/2022, 10/29/2021, Additional history exists Influenza Vaccine (#1) 2024 , 04/10/2022, 04/06/2022, Additional history exists DTaP/Tdap/Td Vaccine (2 - Td or Tdap) 03/27/2033 03/27/2023 Pneumococcal vaccine 65+ Completed 020, 03/27/2019, 02/11/2014 Zoster Vaccine Completed 10/29/2021, 08/03/2021 Insurance MEDICARE [facility] Care Teams Bearing Grinder Relationship Specialty Start Date End Date Sukumar Sandoval DO [address] [place] [address] PCP - General Internal Medicine 05/07/23
--- OUTSIDE RECORDS SUMMARY | 2024-08-10 00:11 | XMS_ITS | Patient Health Summary ---
Author Organization [facility] Address [address] [place] [address] Care Team Providers Care Staff Reporter Name Role Phone Lv Rothman MD Primary Care Provider [phone] Note from [facility],non-owned Affiliates and Associated Physician Practices is amultiple site organization consisting of ambulatory clinics and hospital sitesin [place] and [place]. This disclosure is being madepursuant to the Care Everywhere program and may not contain all information available regarding this patient. Last updated 18.[facility] Allergies No known active allergies Medications * Be aware that medications may not be up to date on this document. Alwaysverify current medications with the patient. * allopurinol (ZYLOPRIM) 300 MG tablet(Started 04/11/2018) * apixaban (ELIQUIS) 5 MG tablet(Started 09/25/2019) TAKE 1 TABLET BY MOUTH TWICE A DAY * vitamin D, cholecalciferol, (VITAMIN D-3 SUPER STRENGTH) 50 MCG (2000 UT) tablet(Started 08/19/2018) * lisinopril (PRINIVIL; ZESTRIL) 10 MG tablet(Started 07/13/2019) Take 20 mg by mouth once daily * Methylcobalamin 1 MG(Started 04/13/2018) * BYSTOLIC 20 MG tablet(Started 03/11/2020) Take 20 mg by mouth once daily Active Problems Problem Noted Date Diagnosed Date [...] Mass Index 27.26 03/30/2020 7:56 AM CDT Procedures * DERMATOPATHOLOGY(Performed 12/27/2020) * ID [facility] MOHS MG TQ H/N/H/F/G 1ST STAG 5 BLOC(Performed 03/30/2020) Performed for 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 Case Report Dermatopathology Report ? Case: [id number] ? Authorizing Provider: ??Grayson Cason MD ?Collected: ? 12/27/2020 12:00 AM ? Ordering Location: ? [facility] DermPath Lab ?Received: ?12/28/2020 01:28 PM ? Pathologist: ? Evgeny Serna MD ? Specimen: ?Skin, mid back ? 12:48 PM CDT DERMATOPATHOLOGY LABORATORY Final Diagnosis Specimen A. SKIN, mid back: EPIDERMOID CYST WITH EVIDENCE OF RUPTURE (L72.0) NOT PRESENT AT MARGIN 12:48 PM CDT DERMATOPATHOLOGY LABORATORY Clinical History R/O ruptured cyst. 12:48 PM CDT DERMATOPATHOLOGY LABORATORY Gross Description Specimen A: Received is one formalin filled container labeled with the patient's name and designated mid back. The specimen consists of a non-oriented ellipse of skin measuring [id number]. The epidermal surface is unremarkable. The margin is inked green. The 12 o'clock and 6 o'clock tips are submitted in cassette 1. The remainder of the ellipse is serially sectioned and submitted in cassettes 2-5. Jar 0. 12:48 PM CDT DERMATOPATHOLOGY LABORATORY Microscopic Description Specimen A. SKIN, mid back: Within the dermis, there is a space lined by epithelium that resembles normal epidermis and the infundibular portion of the hair follicle. Surrounding this is an infiltrate with neutrophils, histiocytes, and multinucleated giant cells. This lesion is not present at the margin of the specimen. 1 12:48 PM CDT DERMATOPATHOLOGY LABORATORY Disclaimer An external and internal positive and negative controls are appropriate for the histochemical, immunohistochemical and immunofluorescence stain(s) in this case (if any), except where stated explicitly. The performance characteristics of the stain(s) cited in this report were developed and its performance characteristic determined by the Dermatopathology Laboratory at [facility], directed by Dr. Martinez Serna. These tests need not be, and therefore are not, approved by the [place] Food and Drug Administration. The tests are used for clinical purposes. Billing Codes Specimen Charges Stain Charges 74884 1 1 12:48 PM CDT DERMATOPATHOLOGY LABORATORY Embedded Images 1 12:48 PM CDT DERMATOPATHOLOGY LABORATORY Pathology/Cytolog y TISSUE SPECIMEN FROM SKIN / Unknown 12/27/2020 12/28/2020 1:28 PM CDT Grayson Cason MD LAB - PATHOLOGY/CYTO LOGY ORDERABLES Performing Organization Address City/State/[facility] Co de Phone Number DERMATOPATHOLOGY LABORATORY [facility] - Department of Dermatology [address], [address] [phone] * ID REPR CMPL WND HEAD,FAC,HAND 2.6-7.5, ID [facility]MS[facility] MOHS MG TQ H/N/H/F/G 1ST STAG 5 BLOC (03/30/2020 9:47 AM CDT) Narrative Karmen Tate MD - 03/30/2020 9:47 AM CDT Karmen Tate MD ? 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 PostOp Size: ??1.7 x 1.3 cm. Mohs Level of Defect: fat Procedure: The patient was placed supine on the operating table. ??The cancer was identified, outlined with a marker, and verified by the patient. ??The entire surgical field was prepped with Hibiclens. ?? The surgical site was anesthetized using Lidocaine 1% with epinephrine 1:100,000 buffered with sodium bicarbonate 8.4% in a 1:10 ratio. The area of clinically apparent tumor was debulked with 2mm curette. The layer of tissue was then surgically excised using a #15 blade and was then transferred onto a specimen sheet maintaining the orientation of the specimen. Hemostasis was obtained using monopolar electrodessication. The wound site was then covered with a dressing while the tissue samples were processed for examination. The excised tissue was transported to the Mohs histology laboratory maintaining the tissue orientation. ??The tissue specimen was relaxed so that the entire surgical margin was in a a single horizontal plane for sectioning andinked for precise mapping. ??A precise reference map was drawn to reflect the sectioning of the specimen, colored inking of the margins, and orientation on the patient. ??The tissue was processed using horizontal sectioning ofthe base and continuous peripheral margins. ??The histopathologic sections were reviewed in conjunction with the reference map. Total blocks: ??1 Total slides: ?? 3 No additional tumor was identified on microscopic examination, therefore Mohs surgery was complete. Reconstruction: Complex Closure Primary Surgeon : Lea The patient was taken to the operative suite and placed ?? supine on the operating room table. ??The defect was identified. ?? Appropriate markings were made with a marking pen to plan the repair. ??The area was infiltrated with Lidocaine 1% with epinephrine 1:100,000 buffered with sodium bicarbonate 8.4% in a 1:10 ratio and prepped with ?? iodine and draped with sterile towels. The wound was debeveled and undermined widely the width of the defect bilaterally. ??Hemostasis was obtained using monopolar electrodessication. The dermis and subcutaneous tissue were then approximated using buried vertical mattress sutures. ??Care was taken to orient tension vectors of the closure to minimize distortion of free margins. ??Cones of redundant tissue were then excised within relaxed skin tension lines on both sides of the defect and additional buried sutures were placed in a similar fashion where needed. ??Percutaneous ?? sutures were carefully placed for maximum eversion and meticulous approximation. The wound was cleansed with saline and ointment was applied along the wound surface. A sterile pressure dressing was applied. ??Wound care instructions were given verbally and in writing. ??The patient left the operating suite in stable condition. ??Patient was informed that additional refinement of the resulting surgical scar may be used as a second stage of this reconstruction. The Attending surgeon was present for the entire procedure and always immediately available. Dr. Tate performed the entire surgery, and documentation used to initiate this operative report. I entered the information in our [employer] DocFlowsheet with the information provided by Dr. Tate on her handwritten, paper format, surgical worksheet, which was then used to initiate the create of this note. Dr. Tate then reviewed and edited the note as needed to complete the note. Cheyenne HILTON I have reviewed the note, edited it as necessary and performed the entire procedure. Karmen Tate MD Exercise Equipment Repair Technician Karmen Tate MD PROCEDURE/MINOR SURG ICAL ORDERABLES Care Teams Staff Reporter Relationship Specialty Start Date End Date L[place] [phone] PCP - General 04/14/12
--- OUTSIDE RECORDS SUMMARY | 2024-08-10 00:11 | XMS_ITS | Referral Summary ---
Author Organization [facility] [address] Address [address] [place] [address] Care Team Providers Care Junior Accountant Bookkeeper Name Role Phone Jaime, Sukumar Killian DO Primary Care Provider [phone] Allergies No known active allergies Medications Eliquis [...] degree AV block 05/07/2023 AV block 05/07/2023 Social History Tobacco Use Types Packs/Day Years Used Date Smoking Tobacco: Never Tobacco Cessation:Counseling Given: Not Answered Personal Safety Answer Date Recorded Getting School Help Needed Not on file 07/17 Sex and Gender Information Value Date Recorded Sex Assigned at Not on file 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
--- OUTSIDE RECORDS SUMMARY | 2024-08-10 00:11 | XMS_ITS | Encounter Summary ---
Author Organization [facility] Address [address] [place] [address] Care Team Providers Care Semiconductor Wafers Etcher Stripper Name Role Phone Lv Rothman MD Primary Care Provider [phone] Encounter Details Date Type Department Care Team (Late st Contact Info) Description 12/28/2020 Lab Requisition [facility] DermPath Lab [address] [place] [phone] Grayson Cason MD [address] [place] [address] Social History Tobacco Use Types [...] Priority Date/Time Associated Diagnosis Comments DERMATOPATHOLOGY Routine 12/27/2020 12:0 0 AM CDT documented in this encounter Results * DERMATOPATHOLOGY (12/27/2020 12:00 AM CDT) Case Report Dermatopathology Report ? Case: [id number] ? Authorizing Provider: ??Grayson Cason MD ?Collected: ? 12/27/2020 12:00 AM ? Ordering Location: ? [facility] DermPath Lab ?Received: ?12/28/2020 01:28 PM ? Pathologist: ? Evgeny Serna MD ? Specimen: ?Skin, mid back ? 12:48 PM CDT DERMATOPATHOLOGY LABORATORY Final Diagnosis Specimen A. SKIN, mid back: EPIDERMOID CYST WITH EVIDENCE OF RUPTURE (L72.0) NOT PRESENT AT MARGIN 12:48 PM T DERMATOPATHOLOGY LABORATORY Clinical History R/O ruptured cyst. 12:48 PM T DERMATOPATHOLOGY LABORATORY Gross Description Specimen A: Received is one formalin filled container labeled with the patient's name and designated mid back. The specimen consists of a non-oriented ellipse of skin measuring [id number]. The epidermal surface is unremarkable. The margin [...] characteristic determined by the Dermatopathology Laboratory at [facility], directed by Dr. Martinez Serna. These tests need not be, and therefore are not, approved by the [place] Food and Drug Administration. The tests are used for clinical purposes. Billing Codes Specimen Charges Stain Charges 99359 1 1 12:48 PM CDT DERMATOPATHOLOGY LABORATORY Embedded Images 12:48 PM CDT DERMATOPATHOLOGY LABORATORY Pathology/Cytolog y TISSUE SPECIMEN FROM SKIN / Unknown 12/27/2020 12/28/2020 1:28 PM CDT Grayson Cason MD LAB - PATHOLOGY/CYTO LOGY ORDERABLES DERMATOPATHOLOGY LABORATORY [facility] - Department of Dermatology [address] [phone] documented in this encounter Visit Diagnoses Not on filedocumented in this encounter Care Teams Semiconductor Wafers Etcher Stripper Relationship Specialty Start Date End Date Lv Rothman MD [address] [place] [address] PCP - General 04/14/12 documented as of this encounter
--- OUTSIDE RECORDS SUMMARY | 2024-08-10 00:11 | XMS_ITS | Clinical Summary ---
Author Organization [facility] Address [address] [place] [address] Care Team Providers Care Actuarial Science Teacher Name Role Phone Lv Rothman MD Primary Care Provider [phone] Source Comments [facility],non-owned Affiliates and Associated Physician Practices is amultiple site organization consisting of ambulatory clinics and hospital sitesin [place], [place], [place] and [place]. This disclosure is being madepursuant to the Care Everywhere program and may not contain all information available regarding this patient. Last updated 18.[employer] Allergies No known active allergies Medications * [...] 03/18/2017 Vitamin B12 deficiency (non anemic) 03/18/2017 Family History Medical History Relation Name Comments Asthma Neg Hx CVA Neg Hx Cancer - Breast Neg Hx Cancer - Other Neg Hx Cancer - Skin, Melanoma Neg Hx Cancer - Skin, Non Melanoma Neg Hx Eczema Neg Hx Hemophilia Neg Hx Psoriasis Neg Hx Social History Tobacco Use Types Packs/Day Years [...] 03/30/2020 7:56 AM CDT Plan of Treatment Health Maintenance Due Date Last Done Comments MEDICARE AWV ? 12 MONTHS 1945 DTAP/TDAP/TD VACCINES (1 - Tdap) 1963 PNEUMOCOCCAL VACCINE 50+ (1 of 1 - PCV) 1994 ZOSTER VACCINE (1 of 2) 1994 Respiratory Syncytial Virus (RSV) Vaccine Pt: or over 60 yrs (1 - 1-dose 75+ series) 2019 COVID-19 VACCINE ( - 2023-2 5 season) 2024 INFLUENZA VACCINE (#1) 2024 9, 05/15/2015, 02/11/2014 DEPRESSION SCREENING 07/14/2024 HEPATITIS B VACCINE Aged Out No longe r eligible based on patient's age to complete this topic HIB VACCINE Aged Out No longer eligi ble based on patient's age to complete this topic HPV VACCINE Aged Out No longer eligi ble based on patient's age to complete this topic MENINGOCOCCAL (Group B) VACCINE Aged Out No longer eligible b ased on patient's age to complete this topic MENINGOCOCCAL VACCINE Aged Out No chuy andrzej eligible based on patient's age to complete this topic Care Teams Actuarial Science Teacher Relationship Specialty Start Date End Date Lv Rothman MD [address] [place] [address] PCP - General 04/14/12
--- NOTE | 2024-08-10 08:43 | WPDHPUPDATE1 ---
History and Physical Update Update Date/Time: 08/10/24 08:43 History and Physical has been reviewed, including an updated exam of the patient. There are NO changes in the patient's condition. Risks, benefits, and alternatives have been discussed and questions answered. Patient agrees to proceed with procedure.
[2024-08-10] MEDS: LACTATED RINGERS 1,000 ML 30 ML IV CONT (09:15)
--- NOTE | 2024-08-10 09:35 | P.PNAN_ITS ---
Anes - Initial Pre Proc Eval Procedure: Operation Date: 08/10/24 11:00 Proposed Procedures p Cystoscopy, - Artem Cortez MD s Trans Urethral Resection Bladder Tumor - Artem Cortez MD Date/Time: 08/10/24 09:35 Surgeon: Artem Cortez MD Pre Op Diagnosis: bladder CA Patient Data Age: 79 Gender: M Height: 1.78 m Weight: 88 kg Allergies Allergy/AdvReac Type Severity Reaction Status Date / Time No Known Allergies Allergy Verified 08/02/24 13:37 Home Medications ?Medication ?Instructions ?Recorded ?Confirmed ?Type apixaban 5 mg tablet (Eliquis) 5 mg PO BID #20 tabs 03/13/21 08/02/24 Rx cholecalciferol (vitamin D3) 50 50 mcg PO BID 03/13/21 08/02/24 History mcg (2,000 unit) capsule magnesium 250 mg tablet 250 mg PO BID 03/13/21 08/02/24 History lisinopril 40 mg tablet 40 mg PO DAILY #90 tabs 03/09/24 08/02/24 Rx hydralazine 25 mg tablet 25 mg PO BID 04/01/24 08/02/24 History mecobalamin (vitamin B12) 1,000 1,000 mcg sublingual 2XW 04/01/24 08/02/24 History mcg disintegrating tablet,sublingual allopurinol 300 mg tablet 300 mg PO DAILY #90 tabs 04/05/24 08/02/24 Rx empagliflozin 10 mg tablet 10 mg PO DAILY #30 tabs 05/03/24 08/02/24 Rx (Jardiance) Laboratory Tests 08/10/24 09:14 PT Pending INR Pending Patient hx anesthesia problems: none Family hx anesthesia problems: none Results Review: All pre-operative results and documents have been reviewed as part of the pre- operative evaluation. [facility] Past Medical History Medical History Complete heart block (~05/2023) Chronic venous insufficiency of lower extremity Chronic kidney disease, stage 3b Seasonal allergies History of colon polyps last colonoscopy in June 2021 which was normal. No further screening recommended due to his age Hypertension Pneumonia 1961 Rib fracture #8 - 1992 Kidney congenitally absent, left Hx of venous thromboembolic disease pulmonary embolism and DVT in bilateral lower extremities in February 2017. 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) Pre-diabetes Essential (primary) hypertension Hx of pancreatitis Idiopathic gout Dyslipidemia Hemochromatosis Surgical History Surgical History Status post biventricular cardiac pacemaker insertion (~05/2023) History of cholecystectomy 06/2014 History of rectal sphincterotomy biliary 03/2015 Family History Family History Sibling Hypertension Father Family history of cardiac disorder Social History Social History Smoking status: Never smoker Second hand tobacco smoke exposure: No Alcohol intake: never Substance use: never Substance use type: does not use Do You Feel Safe in your Home?: Yes Lack of Transportation: No Lack of Food: Never True Current Housing: I Have Housing Concerned About Future Housing: No Difficulty Paying Gas/Electric Bills: No Difficulty Paying for Meds: No Currently Unemployed: No Education: Bachelor's Degree Difficulty w/ Childcare or Family Care: No Living arrangements: with family Additional living arrangements comments: Occupation/Education: occupation Additional occupation/education comments: [employer] Gender identity (if verbalized by the patient): Male Sexual Orientation (if Verbalized by the Patient): Straight or Heterosexual Spiritual care concerns: No Anes - Eval Final PreProcedure Day of Procedure 08/10/24 09:35 Patient weight: overweight Heart: regular rate and rhythm Lungs: clear to auscultation Airway: Mallampati scale class 1 Neurological: alert and oriented Last oral intake: >/= 8 hours ASA classification: III Emergent: no Anesthetic plan: proceed Anesthesia type and monitoring: general LMA and standard monitoring Results Review: All pre-operative results and documents have been reviewed as part of the pre- operative evaluation. Informed Consent: The patient's anesthetic plan and its attendant risks and benefits were discussed with the patient/family/POA. Questions were solicited and answers provided to the satisfaction of the patient/family/POA.
[2024-08-10] MEDS: ceFAZolin 2 GM/D5W 50 ML 2 GM/50 ML BAG IVPB (09:49)
[2024-08-10 10:14] LABS: Prothrombin Time 13.3 Seconds (11.1-14.7)
[2024-08-10] MEDS: LIDOCAINE 2% JELLY 5 ML TUBE 1 APPLIC MUCOUS MEM (10:40)
--- NOTE | 2024-08-10 10:43 | W.PM.PROC2 ---
Procedure Note - Detailed Date of Procedure 08/10/24 Pre-op Diagnosis bladder CA Post-op Diagnosis Same Procedure Performed Cystoscopy, transurethral resection of bladder tumor extensive greater than 5 cm total, complex Townsend catheter placement Surgeon Artem Cortez MD Anesthesia General Description of Procedure Patient is taken the operative suite correctly identified. Once anesthesia was obtained was placed in dorsal lithotomy position and prepped and draped usual sterile fashion. Twenty-four Burundian resectoscope sheath was inserted the bladder. He has approximately 30-40 tumors scattered throughout. Significant portion was at the posterior wall and dome area. I resected all visible tumor that I could see. The resection was slightly deep near the dome area. There was good hemostasis at termination suture. I fulgurated any other visible areas. Scope was removed. Twenty Burundian [address] was placed with 15 cc in the balloon and CBI was initiated. This will be weaned to off in recovery room. For remains clear to be home with catheter. 1. Leave in until next week and obtain a catheter cystogram to confirm no evidence of extravasation. This completes dictation. Please send a copy of op note to my office. Estimated Blood Loss 0 Drains Yes Packing No Pathology Yes Complications No immediate complications Condition Stable Disposition PACU
[2024-08-10] MEDS: fentaNYL CITRATE INJ (*CRX) 100 MCG/2 ML VIAL 25 MCG IV PUSH ×6 (10:55→12:49)
--- NOTE | 2024-08-10 13:20 | SUR.PHASEI ---
Patient meets PACU discharge criteria, unit bed unavailable at this time. Patient placed in extended recovery status.
[2024-08-10] MEDS: HYOSCYAMINE SULFATE 0.125 MG TABLET SUBLINGUAL ×2 (13:51→19:53)
--- NOTE | 2024-08-10 20:50 | ADMGEN ---
This patient, Bentley Campos, was admitted to 3 [facility] Surg Room 320-01. Patient/family oriented to hospital policies and general routines including ID bracelet, bed and alarms, visiting hours, pain management, procedures, bathroom and other care routines, personal items, smoking policy, room service/diet, and visiting hours. Information on how to activate the Rapid Response Team has been discussed. Patient/Family are encouraged to report perceived risks to care and to ask questions if they do not understand what they are told or what they should do.
[2024-08-10] MEDS: hydrALAZINE HCL 25 MG TABLET PO (21:33)
[2024-08-10] MEDS: DOCUSATE SODIUM 100 MG CAPSULE PO (21:33)
[2024-08-10] MEDS: ceFAZolin 1 GM/NS 50 ML 1 GM/50 ML BAG IVPB (21:33)
[2024-08-11] MEDS: ceFAZolin 1 GM/NS 50 ML 1 GM/50 ML BAG IVPB (04:12)
[2024-08-11 05:33] VITALS: BP 113/73; PULSE 67; RESP 20; TEMP 36.7; O2SAT 96
[2024-08-11 06:38] LABS: Hematocrit 40.2 % (42.0-52.0); Hemoglobin 13.3 g/dL (14.0-18.0)
[2024-08-11 07:09] LABS: Anion Gap 8 mmol/L (4-12); Blood Urea Nitrogen 44 mg/dL (9-20); Calcium 8.3 mg/dL (8.4-10.2); Carbon Dioxide 21 mmol/L (22-30); Chloride 105 mmol/L (98-107); Estimated CRCL calculation 29 ml/min; Estimated Glomerular Filt Rate 34; Glucose 124 mg/dL (65-110); Potassium 4.8 mmol/L (3.4-5.0); Sodium 134 mmol/L (137-145)
--- NOTE | 2024-08-11 08:12 | WPDUROPN2 ---
Progress Note: A&P Assessment and Plan (1) Bladder mass: Code(s): N32.89 - Other specified disorders of bladder Status: Acute Assessment and Plan: Doing well. Hold cbi. If clear will discharge home with jordan this afternoon. My office to schedule catheter cystogram next week prior to jordan removal. Subjective Subjective Date/Time Seen: 08/11/24 08:12 Interval history: Doing well. No complaints. Urine clear with minimal cbi Review of Systems Review of Systems: All systems reviewed & are unremarkable except as noted in HPI and below Exam Const: General: cooperative and comfortable Resp: Effort & Inspection: normal respiratory effort Cardio: Rate: regular rate Rhythm: regular rhythm Urinary Catheter: Urinary Catheter: patent and draining and urine clear Objective Data Vital Signs Vital Signs: Vital Signs - 24 hr 08/10/24 09:37 08/10/24 10:45 08/10/24 11:00 Temperature 36.8 C 36.1 C L Pulse Rate 94 74 69 Respiratory Rate 16 17 12 Blood Pressure 131/70 118/70 108/61 Pulse Oximetry 99 97 99 Oxygen Delivery Room Air Simple Face Mask Simple Face Mask Oxygen Flow Rate 8 8 08/10/24 11:15 08/10/24 11:30 08/10/24 11:45 Temperature Pulse Rate 65 63 60 Respiratory Rate 15 10 L 12 Blood Pressure 116/64 129/74 137/73 Pulse Oximetry 97 98 98 Oxygen Delivery Room Air Room Air Room Air Oxygen Flow Rate 08/10/24 12:00 08/10/24 12:15 08/10/24 12:30 Temperature Pulse Rate 61 60 63 Respiratory Rate 12 12 12 Blood Pressure 136/74 135/73 137/70 Pulse Oximetry 95 95 94 Oxygen Delivery Room Air Room Air Room Air Oxygen Flow Rate 08/10/24 12:45 08/10/24 13:00 08/10/24 13:15 Temperature Pulse Rate 64 71 78 Respiratory Rate 12 20 16 Blood Pressure 129/69 125/68 127/81 Pulse Oximetry 96 93 92 Oxygen Delivery Room Air Room Air Room Air Oxygen Flow Rate 08/10/24 13:45 08/10/24 14:15 08/10/24 14:45 Temperature Pulse Rate 86 84 87 Respiratory Rate 16 18 20 Blood Pressure 121/78 124/74 123/70 Pulse Oximetry 94 94 92 Oxygen Delivery Room Air Room Air Room Air Oxygen Flow Rate 08/10/24 15:15 08/10/24 15:45 08/10/24 16:00 Temperature Pulse Rate 91 92 95 Respiratory Rate 18 16 Blood Pressure 122/70 119/71 113/74 Pulse Oximetry 94 94 94 Oxygen Delivery Room Air Room Air Room Air Oxygen Flow Rate 08/10/24 16:30 08/10/24 17:00 08/10/24 17:30 Temperature Pulse Rate 96 90 95 Respiratory Rate 16 Blood Pressure 116/65 105/66 117/74 Pulse Oximetry 94 95 Oxygen Delivery Room Air Room Air Room Air Oxygen Flow Rate 08/10/24 18:00 08/10/24 18:30 08/10/24 19:00 Temperature Pulse Rate 95 93 93 Respiratory Rate 16 16 18 Blood Pressure 122/73 121/70 115/67 Pulse Oximetry 96 98 97 Oxygen Delivery Room Air Room Air Room Air Oxygen Flow Rate 08/10/24 19:30 08/10/24 20:00 08/10/24 20:15 Temperature Pulse Rate 96 100 95 Respiratory Rate 16 18 18 Blood Pressure 119/69 122/62 112/65 Pulse Oximetry 95 96 96 Oxygen Delivery Room Air Room Air Room Air Oxygen Flow Rate 08/10/24 20:20 08/10/24 22:00 08/11/24 05:33 Temperature 36.4 C 36.7 C Pulse Rate 104 H 67 Respiratory Rate 20 20 Blood Pressure 133/67 113/73 Pulse Oximetry 94 96 Oxygen Delivery Room Air Oxygen Flow Rate Intake/Output Intake/Output: Intake & Output 08/08/24 08/09/24 08/10/24 08/11/24 23:59 23:59 23:59 23:59 Intake Total 6700 550 Output Total 5300 1425 Balance 1400 -875 Meds/Results Medications: Active Medications Generic Name Dose Route Start Last Admin Trade Name Freq PRN Reason Stop Dose Admin Hydrocodone Bitart/Acetaminophen 1 tab 08/10/24 20:31 Hydrocodone/Acetaminophen (*Crx) 5-325 Mg Tablet PO Q4H PRN Pain Rated 1-6 Allopurinol 300 mg 08/11/24 09:00 Allopurinol 300 Mg Tablet PO DAILY KRISHNA Cephalexin HCl 500 mg 08/11/24 13:00 Cephalexin 500 Mg Capsule PO QID KRISHNA Docusate Sodium 100 mg 08/10/24 20:31 08/10/24 21:33 Docusate Sodium 100 Mg Capsule PO 100 mg BID KRISHNA Administration Empagliflozin 10 mg 08/11/24 09:00 Empagliflozin 10 Mg Tablet PO DAILY KRISHNA Hydralazine HCl 25 mg 08/10/24 20:31 08/10/24 21:33 Hydralazine Hcl 25 Mg Tablet PO 25 mg BID KRISHNA Administration Hyoscyamine 0.125 mg 08/10/24 13:48 08/10/24 19:53 Hyoscyamine Sulfate 0.125 Mg Tablet SUBLINGUAL 0.125 mg Q6H PRN Administration Bladder Spasm Morphine Sulfate 2 mg 08/10/24 20:31 Morphine Sulfate (*Crx) 2 Mg/Ml Inj IV PUSH Q2H PRN Pain Rated 7-10 Naloxone HCl 0.1 mg 08/10/24 20:31 Naloxone Hcl 0.4 Mg/Ml Vial IV PUSH Q2M PRN Opiate Reversal Ondansetron HCl 4 mg 08/10/24 20:31 Ondansetron Inj 4 Mg/2 Ml Vial IV PUSH Q12H PRN Nausea And Vomiting Labs Labs: Laboratory Results - last 24 hr 08/10/24 08/11/24 09:14 06:25 Hgb 13.3 L Hct 40.2 L PT 13.3 INR 1.0 Sodium 134 L Potassium 4.8 Chloride 105 Carbon Dioxide 21 L Anion Gap 8 BUN 44 H Creatinine 1.93 H Estim Creat Clear Calc 29 Estimated GFR 34 L Glucose 124 H Calcium 8.3 L
[2024-08-11] MEDS: EMPAGLIFLOZIN 10 MG TABLET PO (08:27)
[2024-08-11] MEDS: DOCUSATE SODIUM 100 MG CAPSULE PO (08:27)
[2024-08-11] MEDS: allopurinoL 300 MG TABLET PO (08:27)
[2024-08-11] MEDS: hydrALAZINE HCL 25 MG TABLET PO (08:27)
[2024-08-11] MEDS: HYOSCYAMINE SULFATE 0.125 MG TABLET SUBLINGUAL (12:31)
[2024-08-11] MEDS: CEPHALEXIN 500 MG CAPSULE PO (12:31)
[2024-08-11 14:29] VITALS: BP 105/62; PULSE 98; TEMP 36.8; O2SAT 97
--- NOTE | 2024-08-11 15:03 | PM.DS ---
DS: Admitting Diagnosis Discharge Date 08/11/24 Admitting Diagnosis Bladder Mass DS: Discharge Diagnosis Discharge Diagnosis (1) Bladder mass: Code(s): N32.89 - Other specified disorders of bladder Status: Acute (2) Chronic kidney disease, stage 3b: Code(s): N18.32 - Chronic kidney disease, stage 3b Status: Acute Plan - s/p cystoscopy, TURBT, complex Townsend placement 08/10/[address] Cortez for bladder mass - discharge with indwelling Townsend - 3-way inport plugged - plan outpatient cystogram 08/19 or 08/20 followed by office visit with Dr. Cortez same day DS: Summary Hospital Course Reason for hospitalization: Bladderr mass Hospital Course: Patient here for cysto with TURBT, complex Townsend placement requiring continuous bladder irrigation overnight. CBI clamped early this morning and has been draining clear yellow urine. Urologically cleared for discharge with close urological follow-up next week. Status at Discharge Functional status at discharge: independent ambulation Overall status at discharge: patient is progressing back to baseline Time Spent with Patient Time attestation: Total time spent providing and/or coordinating discharge services: Exam Const: General: comfortable and no acute distress Eyes: General: appearance normal, both eyes and all related structures Resp: Effort & Inspection: normal respiratory effort GI: GI Palp: Yes Soft to palpation Urinary Catheter: Urinary Catheter: patent and draining and urine clear Skin: General skin exam: normal color Psych: Mental Status: mental status grossly normal DS: Data Data Completed and Pending Completed studies during hospitalization: Pending at discharge 08/10/24 10:13 Surgical [PTH] Routine Labs on day of discharge: Labs from last 24 hours 08/11/24 06:25 Hgb 13.3 L Hct 40.2 L Sodium 134 L Potassium 4.8 Chloride 105 Carbon Dioxide 21 L Anion Gap 8 BUN 44 H Creatinine 1.93 H Estim Creat Clear Calc 29 Estimated GFR 34 L Glucose 124 H Calcium 8.3 L Discharge Plan Discharge Patient Disposition: Home, Self-Care Discharge Instructions: Discharged home with Townsend catheter if urine is clear. I will schedule a catheter cystogram next Friday or Friday prior to Townsend catheter removal. Scripts sent to pharmacy. May resume blood thinners tomorrow if urine is clear Patient Language: Mongolian Stand Alone Forms: General Discharge Instructions Follow-up/Referrals: Artem Cortez MD [Physician] - (Outpatient follow-up in 1 week with cystogram same day but prior. ) Discharge Orders: Discharge Order (Routine); Ordered 08/11/24 Ordered By: Sabrina Mon Discharge Medications: New sulfamethoxazole-trimethoprim [Bactrim DS] 800-160 mg tablet 1 tablet PO Q12H Qty: 6 0RF tramadol 50 mg tablet 50 mg PO Q6H PRN (Reason: pain) Qty: 20 0RF oxybutynin chloride 5 mg tablet 5 mg PO BID PRN (Reason: bladder spasms) Qty: 30 0RF Rx Instructions: Take as needed for bladder spasms Continued hydralazine 25 mg tablet 25 mg PO BID cholecalciferol (vitamin D3) 50 mcg (2,000 unit) capsule 50 mcg PO BID magnesium 250 mg tablet 250 mg PO BID Jardiance 10 mg tablet 10 mg PO DAILY Qty: 30 8RF lisinopril 40 mg tablet 40 mg PO DAILY Qty: 90 3RF Patient Comments: qam mecobalamin (vitamin B12) 1,000 mcg tablet,disintegrating 1,000 mcg sublingual 2XW Rx Instructions: place tablet under tongue and allow to dissolve for at least30 secs before swallowing, says only takes once a day. allopurinol 300 mg tablet 300 mg PO DAILY Qty: 90 1RF Held Eliquis 5 mg tablet 5 mg PO BID Qty: 20 0RF Hold Instructions: Resume on 08/11/24. Quality If No VTE Prophylaxis Answer both mechanical and pharmacologic: Reason no mechanical VTE proph: medical contraindication
--- NOTE | 2024-08-11 15:39 | WPDANESPN ---
Anes - Prog Note Post-Op Date/Time: 08/11/24 15:39 Cardiovascular status: normal Respiratory status: normal Airway patency: baseline Mental status: baseline Post-Op hydration status: normal Vital Signs: Last Vital Signs Temp 36.8 C 08/11/24 14:29 Pulse 98 08/11/24 14:29 Resp 20 08/11/24 05:33 BP 105/62 08/11/24 14:29 Pulse Ox 97 08/11/24 14:29 O2 Del Method Room Air 08/11/24 08:00 O2 Flow Rate 8 08/10/24 11:00 Pain Score (VAS): 0 I/O: Intake & Output 08/10/24 08/11/24 08/11/24 23:59 07:59 15:59 Intake Total 3550 550 240 Output Total 1700 1425 Balance 1850 -875 240 Laboratory Tests 08/11/24 06:25 08/11/24 06:25 08/11/24 06:25 Hgb 13.3 L Hct 40.2 L Sodium 134 L Potassium 4.8 Chloride 105 Carbon Dioxide 21 L Anion Gap 8 BUN 44 H Creatinine 1.93 H Estim Creat Clear Calc 29 Estimated GFR 34 L Glucose 124 H Calcium 8.3 L Post-procedural complaints: none Patient Feedback: Patient satisfied with anesthetic care.
== END 2024-08-11 16:30 | disposition home or self-care (01) ==
LOC: ANHSURGERY 10:46 → ANH3MEDSUR 20:37
PROVIDERS: PCP Family Medicine; Visit Provider Urology
PROC: 0TJB8ZZ Inspection of Bladder, Via Natural or Artificial Opening Endoscopic (ICD-10-PCS; CPT 52000; principal; 2024-08-10 11:00)
PROC: 0TBB8ZZ Excision of Bladder, Via Natural or Artificial Opening Endoscopic (ICD-10-PCS; CPT 52240; 2024-08-10 11:00)
DX: C67.4 Malignant neoplasm of posterior wall of bladder (principal); C67.1 Malignant neoplasm of dome of bladder; N32.89 Other specified disorders of bladder; E78.5 Hyperlipidemia, unspecified; I12.9 Hypertensive chronic kidney disease with stage 1 through stage 4 chronic kidney disease, or unspecified chronic kidney disease; E13.22 Other specified diabetes mellitus with diabetic chronic kidney disease; N18.32 Chronic kidney disease, stage 3b; E83.119 Hemochromatosis, unspecified; Z79.84 Long term (current) use of oral hypoglycemic drugs; Z79.01 Long term (current) use of anticoagulants; Z98.890 Other specified postprocedural states; Z90.49 Acquired absence of other specified parts of digestive tract; Z95.0 Presence of cardiac pacemaker; Z90.5 Acquired absence of kidney; Z86.711 Personal history of pulmonary embolism; Z86.79 Personal history of other diseases of the circulatory system; Z86.718 Personal history of other venous thrombosis and embolism; Z86.0100 Personal history of colon polyps, unspecified; Z87.19 Personal history of other diseases of the digestive system; Z82.49 Family history of ischemic heart disease and other diseases of the circulatory system
CPT/HCPCS: 52240; 36415; 80048; 85014; 85018; 85610; 88305; A9270; J0690; J1100; J2405; J2704; J3010; J7030; J7120

== ENCOUNTER 2024-08-18 12:00 | Outpatient (CLI) | payer MEDICARE, SELFPAY ==
--- NOTE | ~2024-08-18 | XR_ITS ---
EXAMINATION: XR cystogram 1-2V DATE: 08/18/2024 13:17 INDICATION: Other specified disorders of bladder. Urothelial carcinoma.. TECHNIQUE: Water-soluble contrast was gravity-infused through the patient's Townsend catheter. Multiple fluoroscopic images were obtained. Fluoroscopy exposure time was 0.4 minutes. The total number of vivi ges was 12. COMPARISON: CT abdomen and pelvis 03/17/2024 FINDINGS: There is a Townsend catheter in expected position. The bladder volume was small when the patie nt reported feeling full. There is left-sided vesicoureteric reflux with severe hydroureter. Surgical clips in the right upper quadrant are likely from cholecystectomy. IMPRESSION: 1. No extraluminal leakage of contrast. 2. Left-sided vesicoureteral reflux with severe hydroureter. Reviewed, dictated and finalized at location A. ATIONAL COORDINATOR
--- OUTSIDE RECORDS SUMMARY | 2024-08-18 13:16 | XMS_ITS | Encounter Summary ---
Author Organization [facility] Address [address] [place] [address] Care Team Providers Care Pit Tanner Name Role Phone Lv Rothman MD Primary Care Provider [phone] Encounter Details Date Type Department Care Team (Late st Contact Info) Description 12/28/2020 Lab Requisition [facility] Care DermPath Lab [address] [facility] [place] [id number] Grayson Cason MD [address] [place] [address] Social History Tobacco Use Types [...] CDT) Case Report Dermatopathology Report ? Case: [id number] ? Authorizing Provider: ??Grayson Cason MD ?Collected: ? 12/27/2020 12:00 AM ? Ordering Location: ? [facility] DermPath Lab ?Received: ?12/28/2020 01:28 PM [...] of a non-oriented ellipse of skin measuring [id number]. The epidermal surface is unremarkable. The margin [...] characteristic determined by the Dermatopathology Laboratory at [facility], directed by Dr. Martinez Serna. These tests need not be, and therefore are not, approved by the [place] Food and Drug Administration. The tests are used for clinical purposes. Billing Codes Specimen Charges Stain Charges 16563 1 1 12:48 PM CDT DERMATOPATHOLOGY LABORATORY Embedded Images 12:48 PM CDT DERMATOPATHOLOGY LABORATORY Pathology/Cytolog y TISSUE SPECIMEN FROM SKIN / Unknown 12/27/2020 12/28/2020 1:28 PM CDT Grayson Cason MD LAB - PATHOLOGY/CYTO LOGY ORDERABLES DERMATOPATHOLOGY LABORATORY [facility] - Department of Dermatology [address], [address] [phone] documented in this encounter Visit Diagnoses Not on filedocumented in this encounter Care Teams Pit Tanner Relationship Specialty Start Date End Date Lv Rothman MD [address] [place] [address] PCP - General 04/14/12 documented as of this encounter
--- OUTSIDE RECORDS SUMMARY | 2024-08-18 13:16 | XMS_ITS | Encounter Summary ---
Author Organization [facility] Address [address] [facility] [place] [address] Care Team Providers Care Surgical Physician Assistant Name Role Phone Lv Rohtman MD Primary Care Provider [phone] Encounter Details Date Type Department Care Team (Late st Contact Info) Description 10/22/2017 Lab Requisition [facility] Care DermPath Lab [address] [facility] [place] [id number] Grayson Cason MD [address] [place] [address] Social History Tobacco Use Types [...] CDT) Case Report Dermatopathology Report ? Case: [id number] ? Authorizing Provider: ??Grayson Cason MD ?Collected: ? 10/21/2017 12:00 AM ? Pathologist: ? Evgeny Srena MD ? Received: ?10/22/2017 10:35 AM ? [...] specimen consists of a shave biopsy measuring [id number].The margin is inked green. Jar 0. Specimen: B: Received is one formalin filled container labeled with the patient's name and designated left upper lat back. The specimen consists of a shave biopsy measuring [id number].The margin is inked green. Jar 0. 6:12 [...] characteristic determined by the Dermatopathology Laboratory at [facility]. These tests need not be, and therefore are not, approved by the [place] Food and Drug Administration. The tests are used for clinical purposes. Billing Codes Specimen Charges Stain Charges 11840 30147 1 1 8 6:12 PM CDT DERMATOPATHOLOGY LABORATORY Embedded Images 8 6:12 PM CDT DERMATOPATHOLOGY LABORATORY Pathology/Cytology TISSUE SPECIMEN FROM SKIN / Unknown 10/21/2017 10/22/2017 10:35 AM CDT Miscellaneous samples (specimen) TISSUE SPECIMEN FROM SKIN / Unknown 10/21/2017 10/22/2017 10:35 AM CDT Grayson Cason MD LAB - PATHOLOGY/CYTO LOGY ORDERABLES DERMATOPATHOLOGY LABORATORY [facility] - Department of Dermatology [address] [place] [address] 5th Floor Lab [address] [phone] documented in this encounter Visit Diagnoses Not on filedocumented in this encounter Care Teams Surgical Physician Assistant Relationship Specialty Start Date End Date Lv Rothman MD [address] [place] [address] PCP - General 04/14/12 documented as of this encounter
--- OUTSIDE RECORDS SUMMARY | 2024-08-18 13:16 | XMS_ITS | Referral Summary ---
Author Organization [facility] Address [address] [place] [address] Care Team Providers Care Machine Cloth Examiner Name Role Phone Lv Rothman MD Primary Care Provider [phone] Source Comments [facility],non-owned Affiliates and Associated Physician Practices is amultiple site organization consisting of ambulatory clinics and hospital sitesin [place], [place], [place] and [place]. This disclosure is being madepursuant to the Care Everywhere program and may not contain all information available regarding this patient. Last updated 18.[facility] Allergies No known active allergies Medications * [...] of Treatment Not on file Care Teams Machine Cloth Examiner Relationship Specialty Start Date End Date Lv Rothman MD [address] [place] [address] PCP - General 04/14/12
--- OUTSIDE RECORDS SUMMARY | 2024-08-18 13:16 | XMS_ITS | Clinical Summary ---
Author Organization [facility] Address [address] [place] [address] Care Team Providers Care Employment Adjudicator Name Role Phone Lv Rothman MD Primary Care Provider [phone] Source Comments [facility],non-owned Affiliates and Associated Physician Practices is amultiple site organization consisting of ambulatory clinics and hospital sitesin [place], [place], [place] and [place]. This disclosure is being madepursuant to the Care Everywhere program and may not contain all information available regarding this patient. Last updated 18.[facility] Allergies No known active allergies Medications * [...] age to complete this topic Care Teams Employment Adjudicator Relationship Specialty Start Date End Date Lv Rothman MD [address] [place] [address] PCP - General 04/14/12
--- OUTSIDE RECORDS SUMMARY | 2024-08-18 13:16 | XMS_ITS | Clinical Summary ---
Author Organization [facility] Address [address] [place] [address] Phone Care Team Providers Care Pole Framer Machine Name Role Phone Chris Rey MD Primary [...] Risk Completed 03/21/2020, 03/27/2019, 02/11/2014 Care Teams Pole Framer Machine Relationship Specialty Start Date End Date Chris Rey MD [address] [place] [address] PCP - General Internal Medicine 02/17/19
--- OUTSIDE RECORDS SUMMARY | 2024-08-18 13:16 | XMS_ITS | Clinical Summary ---
Author Organization [facility] Address [address], [facility] [address] [place] [address] Phone Care Team Providers Care Professional Nursing Assistant Name Role Phone Lv Rothman MD Primary Care Provider Lenin Carrasco DO Unavailable [phone] Medications allopurinol (ZYLOPRIM) 300 MG Tablet Take 200 mg by mouth daily. 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 on file Not on file Not on file Last Filed Vital Signs Vital Sign Reading Time Taken Comments Blood Pressure 128/68 09/21/2015 12:10 PM POPCORN VENDOR Pulse 66 09/13/2015 8:26 AM POPCORN VENDOR Temperature 37 ??C (98.6 ??F) 09/21/2015 12:10 PM POPCORN VENDOR Respiratory Rate 16 09/21/2015 12:10 PM POPCORN VENDOR Oxygen Saturation 94% 09/21/2015 12:10 PM POPCORN VENDOR Inhaled Oxygen Concentration - - Weight 88.5 kg (195 lb) 09/18/2015 3:00 PM POPCORN VENDOR Height 177.8 cm (5' 10 ) 09/18/2015 3:00 PM POPCORN VENDOR Body Mass Index 27.98 09/18/2015 3:00 PM POPCORN VENDOR Plan of Treatment Health Maintenance Due Date [...] patient's age to complete this topic Insurance [facility] MEDICARE Care Teams Professional Nursing Assistant Relationship Specialty Start Date End Date Lv Rothman MD [address] [place] [phone] PCP - General Family Medicine 09/13/15 Lenin Carrasco DO [address] [place] [address] Gastroenterology 09/13/15
--- OUTSIDE RECORDS SUMMARY | 2024-08-18 13:16 | XMS_ITS | Patient Health Summary ---
Author Organization [facility] Address [address] [place] [address] Care Team Providers Care Aircraft Structural Repair Mechanic Name Role Phone Lv Rothman MD Primary Care Provider [phone] Note from [facility],non-owned Affiliates and Associated Physician Practices is amultiple site organization consisting of ambulatory clinics and hospital sitesin [place], [place], [place] and [place]. This disclosure is being madepursuant to the Care Everywhere program and may not contain all information available regarding this patient. 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 Case Report Dermatopathology Report ? Case: [id number] ? Authorizing Provider: ??Grayson Cason MD ?Collected: ? 12/27/2020 12:00 AM ? Ordering Location: ? [facility] DermPath Lab ?Received: ?12/28/2020 01:28 PM [...] of a non-oriented ellipse of skin measuring [id number]. The epidermal surface is unremarkable. The margin [...] characteristic determined by the Dermatopathology Laboratory at [facility], directed by Dr. Martinez Serna. These tests need not be, and therefore are not, approved by the [place] Food and Drug Administration. The tests are used for clinical purposes. Billing Codes Specimen Charges Stain Charges 96490 1 1 12:48 PM CDT DERMATOPATHOLOGY LABORATORY Embedded Images 1 12:48 PM CDT DERMATOPATHOLOGY LABORATORY Pathology/Cytolog y TISSUE SPECIMEN FROM SKIN / Unknown 12/27/2020 12/28/2020 1:28 PM CDT Grayson Cason MD LAB - PATHOLOGY/CYTO LOGY ORDERABLES Performing Organization Address City/State/[facility] Co de Phone Number DERMATOPATHOLOGY LABORATORY [facility] - Department of Dermatology [address], [address] Floor [address] [phone] * ND REPR CMPL WND HEAD,FAC,HAND 2.6-7.5, ND [facility] MOHS MG TQ H/N/H/F/G 1ST STAG [...] report. I entered the information in our [employer] DocFlowsheet with the information provided by Dr. Tate on her handwritten, paper format, surgical worksheet, which was then used to initiate the create of this note. Dr. Tate then reviewed and edited the note as needed to complete the note. Cheyenne HILTON I have reviewed the note, edited it as necessary and performed the entire procedure. Karmen Tate MD Director Imaging Karmen Tate MD PROCEDURE/MINOR SURG ICAL ORDERABLES Care Teams Aircraft Structural Repair Mechanic Relationship Specialty Start Date End Date L[place] [address] PCP - General 04/14/12
--- OUTSIDE RECORDS SUMMARY | 2024-08-18 13:17 | XMS_ITS | Clinical Summary ---
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
--- OUTSIDE RECORDS SUMMARY | 2024-08-18 13:17 | XMS_ITS | Encounter Summary ---
Author Organization [facility] Address [address] [place] [address] Care Team Providers Care Mink Farmer Name Role Phone Lv Rothman MD Primary Care Provider [phone] Encounter Details Date Type Department Care Team (Late st Contact Info) Description 02/10/2020 Lab Requisition [facility] DermPath Lab [address] [facility] [place] [phone] Grayson Cason MD [address] [place] [address] Social History Tobacco Use Types [...] CDT) Case Report Dermatopathology Report ? Case: [id number] ? Authorizing Provider: ??Grayson Cason MD ?Collected: ? 02/09/2020 12:00 AM ? Ordering Location: ? [facility] DermPath Lab ?Received: ?02/10/2020 11:51 AM [...] specimen consists of a shave biopsy measuring [id number]. Jar 0. 0 4:30 PM CDT DERMATOPATHOLOGY [...] characteristic determined by the Dermatopathology Laboratory at [facility], directed by Dr. Martinez Serna. These tests need not be, and therefore are not, approved by the [place] Food and Drug Administration. The tests are used for clinical purposes. Billing Codes Specimen Charges Stain Charges 28916 1 0 4:30 PM CDT DERMATOPATHOLOGY LABORATORY Embedded Images 0 4:30 PM CDT DERMATOPATHOLOGY LABORATORY Pathology/Cytolog y TISSUE SPECIMEN FROM SKIN / Unknown 02/09/2020 02/10/2020 11:51 AM CDT Grayson Cason MD LAB - PATHOLOGY/CYTO LOGY ORDERABLES DERMATOPATHOLOGY LABORATORY [facility] - Department of Dermatology Radiology Administrator [facility]/[address] [phone] documented in this encounter Visit Diagnoses Not on filedocumented in this encounter Care Teams Mink Farmer Relationship Specialty Start Date End Date Lv Rothman MD [address] [place] [address] [place] [address] PCP - General 04/14/12 documented as of this encounter
--- OUTSIDE RECORDS SUMMARY | 2024-08-18 13:17 | XMS_ITS | Clinical Summary ---
Author Organization [facility] Address [address] [place] [address] Care Team Providers Care Blanket Cutter Hand Name Role Phone Chris Rey MD Primary [...] Data STL ABSTRACTION Provider, Abstract 07/30/2024 Abstract [facility] Oncology and Hematology [place] [address] [place] [address] Sushant Kirby MD [facility]/30[facility]20[facility] [address] [place] [address] Sushant Kirby MD 07/18/2024 Refill [facility] Oncology and Hematology [facility] [address] [place] [address] Sushant Kirby MD Hypercoagulable state; Acute deep [...] Description 09/24/2024 8:30 AM CDT Office Visit [facility] Oncology and Hematology - [place] [address] [facility] [address] [place] [address] Sushant Kirby MD [address] [facility] [address] [place] [address] Health Maintenance Due Date Last [...] Discontinued Insurance MEDICARE PART A AND B [facility] SUPP MEDICARE PART A AND B [facility] SUPP Care Teams Blanket Cutter Hand Relationship Specialty Start Date End Date Chris Rey MD [address] [place] [address] PCP - General Family Practice 03/18/17
--- OUTSIDE RECORDS SUMMARY | 2024-08-18 13:17 | XMS_ITS | Referral Summary ---
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
== END 2024-08-18 12:01 | disposition home or self-care (01) ==
PROVIDERS: PCP Family Medicine; Visit Provider Nurse Practitioner
DX: N32.89 Other specified disorders of bladder (principal); N13.4 Hydroureter
CPT/HCPCS: 51600; 74430; Q9967

== ENCOUNTER 2024-09-20 08:55 | Outpatient (CLI) | payer MEDICARE, SELFPAY ==
[2024-09-20 09:10] LABS: Basophils Absolute Auto 0.1 K/mm3 (0.0-0.1); Eosinophils Absolute Auto 0.2 K/mm3 (0-0.3); Eosinophils Percent Auto 2.7 % (0-4.4); Hematocrit 40.7 % (42.0-52.0); Hemoglobin 13.4 g/dL (14.0-18.0); Immature Granulocyte Absolute 0.02 K/mm3 (0.00-0.031); Immature Granulocyte Percent A 0.3 % (0-0.5); Lymphocytes Absolute Auto 1.58 K/mm3 (0.9-3.2); Lymphocytes Percent Auto 25.2 % (18.3-44.2); Mean Corpuscular HGB Conc 32.9 g/dl (32-36); Mean Corpuscular Hemoglobin 34.2 pg (26-34); Mean Corpuscular Volume 103.8 fl (80-100); Mean Platelet Volume 8.9 fl (7.4-10.4); Monocytes Absolute Auto 0.7 K/mm3 (0.1-0.6); Monocytes Percent Auto 10.5 % (2.6-8.5); Neutrophils Absolute Auto 3.8 K/mm3 (1.3-6.7); Neutrophils Percent Auto 60.3 % (45.5-73.1); Platelet Count Result 182 k/mm3 (150-375); Red Blood Count 3.92 M/mm3 (4.6-6.20); Red Cell Distribution Width 13.2 % (11.5-14.5); White Blood Count 6.3 K/mm3 (4.5-10.0)
--- OUTSIDE RECORDS SUMMARY | 2024-09-20 09:48 | XMS_ITS | Clinical Summary ---
Author Organization [facility] Address [address] [place] [address] Phone Care Team Providers Care Batcher Operator Name Role Phone Chris Rey MD [...] 50 04/17/2022 8:55 AM CDT Temperature 35.7 C (96.3 F) 04/17/2022 8:55 AM CDT Respiratory Rate - - Oxygen Saturation - [...] Risk Completed 03/21/2020, 03/27/2019, 02/11/2014 Care Teams Batcher Operator Relationship Specialty Start Date End Date Chris Rey MD [address] [place], [place] [phone] PCP - General Internal Medicine 02/17/19
--- OUTSIDE RECORDS SUMMARY | 2024-09-20 09:48 | XMS_ITS | Clinical Summary ---
Author Organization [facility] Address [address] [place] [address] Care Team Providers Care Shearing Supervisor Name Role Phone Chris Rey MD Primary Care Provider Allergies No known active allergies Medications cholecalciferol, Vitamin D3, 2,000 unit Tablet Take by mouth. 08/19/2018 Active Cyanocobalamin-M ethylcobalamin 600-600 mcg Tablet, Sublingual Take by mouth. 04/13/2018 Active mecobalamin, vitamin B12, (B12 Active) 1,000 mcg Tablet, Chewable Take by mouth. 04/13/2018 Active allopurinoL (ZYLOPRIM) 300 mg tablet Take by mouth. 04/11/2018 Active hydrALAZINE (APRESOLINE) 25 mg tablet TAKE ONE TABLET (25MG) BY MOUTH TWICE A DAY 07/22/2023 Active lisinopriL (PRINIVIL) 40 mg tablet Take 40 mg by mouth daily. Active apixaban (Eliquis) 5 mg tabletIndication s:Hypercoagulabl e state,Acute deep vein thrombosis (DVT) of proximal vein of lower extremity, unspecified laterality (CMS/HCC) TAKE 1 TABLET BY MOUTH TWICE A DAY 60 Tablet 2 07/20/2024 Active Active Problems Problem Noted Date Diagnosed Date Iron overload 05/26/2019 Macrocytic anemia 05/26/2019 Vitamin B12 deficiency (non anemic) 03/18/2017 Hypercoagulable state 03/18/2017 Resolved Problems Problem Noted Date Diagnosed Date Resolved Date Iron deficiency anemia 03/18/201705/26 Encounters Date Type Department Care Team Description 09/17/2024 External Device Data STL ABSTRACTION Provider, Abstract 08/31/2024 External Device Data STL ABSTRACTION Provider, Abstract 08/04/2024 External Device Data STL ABSTRACTION Provider, Abstract 08/04/2024 External Device Data STL ABSTRACTION Provider, Abstract 07/30/[address] [facility] Oncology and Hematology [place] [address] [place] [address] Sushant Kirby MD 07/30/[address] [facility] Oncology and Hematology [facility] [address] [place] [address] Sushant Kirby MD 07/18/[address] [facility] Oncology and Hematology [place] [address] [place] [address] Sushant Kirby MD Hypercoagulable state; Acute deep [...] 86 03/26/2024 8:39 AM CDT Temperature 36.5 C (97.7 F) 03/26/2024 8:39 AM CDT Respiratory Rate 18 03/26/2024 8:39 AM CDT [...] Description 09/24/2024 8:30 AM CDT Office Visit [facility] Oncology and Hematology - [place] [address] [facility] [address] [place] [address] Sushant Kirby MD [address] [facility] [address] [place] [address] Health Maintenance Due Date Last Done Comments DTAP/TDAP/TD VACCINES (1 - Tdap) 1964 Traditional Medicare (ACO) A nnual Wellness Visit 1964 ZOSTER VACCINE (1 of 2) 1994 RSV VACCINE (60+ or ) (1 - 1-dose 75+ series) 2019 INFLUENZA VACCINE (#1) 2024 2, 03/28/2021, 03/27/2019, Additional history exists COVID-19 Vaccine (2 - 2023-2 5 season) 2024 09/18/2020 PNEUMOCOCCAL VACCINE 50+ YEARS Completed 0 03/21/2020, 03/27/2019, 02/11/2014 COLORECTAL SCREENING Discontinued 06/20/2021, 08/16/19 15 Colorectal Cancer Screening Discontinued FIT-DNA Q 3 years Discontinued FIT/FOBT Q 1 year Discontinued Flex Sig/CT Colonography Q 5 years Discontinued Insurance MEDICARE PART A AND B BC[employer] SUPP MEDICARE PART A AND B [facility] SUPP Care Teams Shearing Supervisor Relationship Specialty Start Date End Date Chris Rey MD [address] [place] [address] PCP - General Family Practice 03/18/17
--- OUTSIDE RECORDS SUMMARY | 2024-09-20 09:48 | XMS_ITS | Clinical Summary ---
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
--- OUTSIDE RECORDS SUMMARY | 2024-09-20 09:48 | XMS_ITS | Encounter Summary ---
Author Organization [facility] Address [address] [place] [address] Care Team Providers Care Turn Down Attendant Name Role Phone Lv Rothman MD Primary Care Provider [phone] Encounter Details Date Type Department Care Team (Late st Contact Info) Description 12/28/2020 Lab Requisition [facility] DermPath Lab [address] [facility] [place] [phone] Grayson Cason MD [address] [place] [address] Social History Tobacco Use Types Packs/Day Years [...] 12:00 AM CDT) Case Report Dermatopathology Report Case: [id number] Authorizing Provider: Grayson Cason MD Collected: 12/27/2020 12:00 AM Ordering Location: [facility] DermPath Lab Received: 12/28/2020 01:28 PM Pathologist: Evgeny Serna MD Specimen: Skin, mid back 12:48 PM CDT DERMATOPATHOLOGY LABORATORY Final Diagnosis [...] of a non-oriented ellipse of skin measuring [id number]. The epidermal surface is unremarkable. The margin [...] present at the margin of the specimen. 12:48 PM CDT DERMATOPATHOLOGY LABORATORY Disclaimer An external and internal positive and negative controls are appropriate for the histochemical, immunohistochemical and immunofluorescence stain(s) in this case (if any), except where stated explicitly. The performance characteristics of the stain(s) cited in this report were developed and its performance characteristic determined by the Dermatopathology Laboratory at [facility], directed by Dr. Martinez Serna. These tests need not be, and therefore are not, approved by the [place] Food and Drug Administration. The tests are used for clinical purposes. Billing Codes Specimen Charges Stain Charges 61852 1 12:48 PM CDT DERMATOPATHOLOGY LABORATORY Embedded Images 12:48 PM CDT DERMATOPATHOLOGY LABORATORY Pathology/Cytolog y TISSUE SPECIMEN FROM SKIN / Unknown 12/27/2020 12/28/2020 1:28 PM CDT Grayson Cason MD LAB - PATHOLOGY/CYTO LOGY ORDERABLES DERMATOPATHOLOGY LABORATORY [facility] - Department of Dermatology [facility] Medicine [address] [place] [address], [address] [phone] documented in this encounter Visit Diagnoses Not on filedocumented in this encounter Care Teams Turn Down Attendant Relationship Specialty Start Date End Date Lv Rothman MD [address] [place] [address] PCP - General 04/14/12 documented as of this encounter
--- OUTSIDE RECORDS SUMMARY | 2024-09-20 09:48 | XMS_ITS | Referral Summary ---
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
--- OUTSIDE RECORDS SUMMARY | 2024-09-20 09:48 | XMS_ITS | Clinical Summary ---
Author Organization [facility] Address [address] [place] [address] Care Team Providers Care Mri Supervisor Name Role Phone Lv Rothman MD Primary Care Provider [phone] Source Comments [facility],non-owned Affiliates and Associated Physician Practices is amultiple site organization consisting of ambulatory clinics and hospital sitesin [place], [place], [place] and [place]. This disclosure is being madepursuant to the Care Everywhere program and may not contain all information available regarding this patient. Last updated 18.[facility] Allergies No known active allergies Medications * [...] Due Date Last Done Comments MEDICARE AWV 12 MONTHS 1944 DTAP/TDAP/TD VACCINES (1 - [...] age to complete this topic Care Teams Mri Supervisor Relationship Specialty Start Date End Date Lv Rothman MD [address] [place] [address] PCP - General 04/14/12
--- OUTSIDE RECORDS SUMMARY | 2024-09-20 09:48 | XMS_ITS | Clinical Summary ---
Author Organization [facility] Address [address], [facility] [address] [place] [address] Phone Care Team Providers Care Alterations Supervisor Name Role Phone Lv Rothman MD Primary Care Provider [phone] Lenin Carrasco DO Unavailable [phone] Medications allopurinol (ZYLOPRIM) 300 MG Tablet Take 200 mg by mouth daily. 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 Not on file Not on file Last Filed Vital Signs Vital Sign Reading Time Taken Comments Blood Pressure 128/68 09/21/2015 12:10 PM DIRECTOR INSTRUCTIONAL MATERIAL Pulse 66 09/13/2015 8:26 AM DIRECTOR INSTRUCTIONAL MATERIAL Temperature 37 C (98.6 F) 09/21/2015 12:10 PM DIRECTOR INSTRUCTIONAL MATERIAL Respiratory Rate 16 09/21/2015 12:10 PM DIRECTOR INSTRUCTIONAL MATERIAL Oxygen Saturation 94% 09/21/2015 12:10 PM DIRECTOR INSTRUCTIONAL MATERIAL Inhaled Oxygen Concentration - - Weight 88.5 kg (195 lb) 09/18/2015 3:00 PM DIRECTOR INSTRUCTIONAL MATERIAL Height 177.8 cm (5' 10 ) 09/18/2015 3:00 PM DIRECTOR INSTRUCTIONAL MATERIAL Body Mass Index 27.98 09/18/2015 3:00 PM DIRECTOR INSTRUCTIONAL MATERIAL Plan of Treatment Health Maintenance Due Date [...] patient's age to complete this topic Insurance [facility] MEDICARE Care Teams Alterations Supervisor Relationship Specialty Start Date End Date Lv Rothman MD [address] [place] [phone] PCP - General Family Medicine 09/13/15 Lenin Carrasco DO [address] [place] [address] Gastroenterology 09/13/15
--- OUTSIDE RECORDS SUMMARY | 2024-09-20 09:48 | XMS_ITS | Referral Summary ---
Author Organization [facility] Address [address] [place] [address] Care Team Providers Care Biofuels Plant Operations Engineer Name Role Phone Lv Rothman MD Primary Care Provider [phone] Source Comments [facility],non-owned Affiliates and Associated Physician Practices is amultiple site organization consisting of ambulatory clinics and hospital sitesin [place], [place], [place] and [place]. This disclosure is being madepursuant to the Care Everywhere program and may not contain all information available regarding this patient. Last updated 18.[facility] Allergies No known active allergies Medications * [...] of Treatment Not on file Care Teams Biofuels Plant Operations Engineer Relationship Specialty Start Date End Date Lv Rothman MD [address] [place] [address] PCP - General 04/14/12
--- OUTSIDE RECORDS SUMMARY | 2024-09-20 09:48 | XMS_ITS | Encounter Summary ---
Author Organization [facility] Address [address] [place] [address] Care Team Providers Care Manager Application Development Name Role Phone Lv Rothman MD Primary Care Provider [phone] Encounter Details Date Type Department Care Team (Late st Contact Info) Description 02/10/2020 Lab Requisition [facility] DermPath Lab [address] [place] [phone] Grayson Cason MD [address] [place] [address] Social History Tobacco Use Types Packs/Day Years [...] AM CDT) Case Report Dermatopathology Report Case: [id number] Authorizing Provider: Grayson Cason MD Collected: 02/09/2020 12:00 AM Ordering Location: [facility] DermPath Lab Received: 02/10/2020 11:51 AM Pathologist: Selene Marcus MD Specimen: Skin, left zygoma 0 4:30 PM CDT DERMATOPATHOLOGY LABORATORY Final [...] specimen consists of a shave biopsy measuring [id number]. Jar 0. 0 4:30 PM CDT DERMATOPATHOLOGY [...] determined by the Dermatopathology Laboratory at [facility], directed by Dr. Martinez Serna. These tests need not be, and therefore are not, approved by the [place] Food and Drug Administration. The tests are used for clinical purposes. Billing Codes Specimen Charges Stain Charges 54478 1 0 4:30 PM CDT DERMATOPATHOLOGY LABORATORY Embedded Images 0 4:30 PM CDT DERMATOPATHOLOGY LABORATORY Pathology/Cytolog y TISSUE SPECIMEN FROM SKIN / Unknown 02/09/2020 02/10/2020 11:51 AM CDT Grayson Cason MD LAB - PATHOLOGY/CYTO LOGY ORDERABLES DERMATOPATHOLOGY LABORATORY [facility] - Department of Dermatology [employer] [facility] [place] [address], [facility] [phone] documented in this encounter Visit Diagnoses Not on filedocumented in this encounter Care Teams Manager Application Development Relationship Specialty Start Date End Date Lv Rothman MD [address] [place] [address] PCP - General 04/14/12 documented as of this encounter
--- OUTSIDE RECORDS SUMMARY | 2024-09-20 09:48 | XMS_ITS | Encounter Summary ---
Author Organization [facility] Address [address] [place] [address] Care Team Providers Care Outcomes Specialist Name Role Phone Chris Rey MD Primary Care Provider Encounter Details Date Type Department Care Team (Late st Contact Info) Description 09/17/2024 External Device Data [facility] ABSTRACTION Provider, Abstract NO ADDRESS ON FILE Social History Tobacco Use Types Packs/Day Years Used Date Smoking Tobacco: Never Smokeless Tobacco: Never Alcohol Use Standard Drinks/Week Comments Yes 0 (1 standard drink = 0.6 oz pur e alcohol) occasional Sex and Gender Information Value Date Recorded Sex Assigned at Not on file Legal Sex Male 12:17 PM CDT Gender Identity Not on file Sexual Orientation Not on file documented as of this encounter Plan of Treatment Upcoming Encounters Date Type Department Care Team (Late st Contact Info) Description 09/24/2024 8:30 AM CDT Office Visit [facility] Oncology and Hematology - [place] [address] [place] [address] [facility] [address] [place] [address] [place] [address] [place] [address] [address] [place] [address] documented as of this encounter Visit Diagnoses Not on filedocumented in this encounter Care Teams Outcomes Specialist Relationship Specialty Start Date End Date Chris Rey MD [address] [place] [address] PCP - General Family Practice 03/18/17 documented as of this encounter
--- OUTSIDE RECORDS SUMMARY | 2024-09-20 09:48 | XMS_ITS | Patient Health Summary ---
Author Organization [facility] Address [address] [place] [address] Care Team Providers Care Display Designer Outside Name Role Phone Lv Rothman MD Primary Care Provider [phone] Note from [facility],non-owned Affiliates and Associated Physician Practices is amultiple site organization consisting of ambulatory clinics and hospital sitesin [place], [place], [place] and [place]. This disclosure is being madepursuant to the Care Everywhere program and may not contain all information available regarding this patient. 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 Case Report Dermatopathology Report Case: [id number] Authorizing Provider: Grayson Cason MD Collected: 12/27/2020 12:00 AM Ordering Location: [facility] DermPath Lab Received: 12/28/2020 01:28 PM Pathologist: [...] of a non-oriented ellipse of skin measuring [id number]. The epidermal surface is unremarkable. The margin [...] characteristic determined by the Dermatopathology Laboratory at [facility], directed by Dr. Martinez Serna. These tests need not be, and therefore are not, approved by the [place] Food and Drug Administration. The tests are used for clinical purposes. Billing Codes Specimen Charges Stain Charges 91028 1 12:48 PM CDT DERMATOPATHOLOGY LABORATORY Embedded Images 12:48 PM CDT DERMATOPATHOLOGY LABORATORY Pathology/Cytolog y TISSUE SPECIMEN FROM SKIN / Unknown 12/27/2020 12/28/2020 1:28 PM CDT Grayson Cason MD LAB - PATHOLOGY/CYTO LOGY ORDERABLES DERMATOPATHOLOGY LABORATORY [facility] - Department of Dermatology [facility] [address] [facility] [facility], 3rd [place] [address], [facility] [phone] * MI REPR CMPL WND HEAD,FAC,HAND 2.6-7.5, MI [facility] MOHS MG TQ H/N/H/F/G 1ST STAG 5 BLOC (03/30/2020 9:47 AM CDT) Narrative Karmen Tate MD - 03/30/2020 9:47 AM CDT Karmen Tate MD 04/03/2020 9:27 PM Date of Service: 03/30/2020 Surgery: Mohs micrographic surgery Repair Type: Complex Repair Size: 2.8cm Suture Material: monocryl 5-0;Fast Absorbing Gut 5-0 Tumor Type: Squamous cell carcinoma in situ Location: left zygoma Derm-Path PreOp Size: 1.0 x 0.9 cm. PostOp Size: 1.7 x 1.3 cm. Mohs Level of Defect: fat Procedure: The patient was placed supine on the operating table. The cancer was identified, outlined with a marker, and verified by the patient. The entire surgical field was prepped with Hibiclens. The surgical site was anesthetized using Lidocaine [...] [facility] maintaining the tissue orientation. The tissue specimen was relaxed so that the entire surgical margin was in a a single horizontal plane for sectioning andinked for precise mapping. A precise reference map was drawn to reflect the sectioning of the specimen, colored inking of the margins, and orientation on the patient. The tissue was processed using horizontal sectioning ofthe base and continuous peripheral margins. The histopathologic sections were reviewed in conjunction with the reference map. Total blocks: 1 Total slides: 3 No additional tumor was identified on microscopic examination, therefore Mohs surgery was complete. Reconstruction: Complex Closure Primary Surgeon : Lea The patient was taken to the operative suite and placed supine on the operating room table. The defect was identified. Appropriate markings were made with a marking pen to plan the repair. The area was infiltrated with Lidocaine 1% with epinephrine 1:100,000 buffered with sodium bicarbonate 8.4% in a 1:10 ratio and prepped with iodine and draped with sterile towels. The wound was debeveled and undermined widely the width of the defect bilaterally. Hemostasis was obtained using monopolar electrodessication. The dermis and subcutaneous tissue were then approximated using buried vertical mattress sutures. Care was taken to orient tension vectors of the closure to minimize distortion of free margins. Cones of redundant tissue were then excised within relaxed skin tension lines on both sides of the defect and additional buried sutures were placed in a similar fashion where needed. Percutaneous sutures were carefully placed for maximum eversion and meticulous approximation. The wound was cleansed with saline and ointment was applied along the wound surface. A sterile pressure dressing was applied. Wound care instructions were given verbally and in writing. The patient left the operating suite in stable condition. Patient was informed that additional refinement of the resulting surgical scar may be used as a second stage of this reconstruction. The Attending surgeon was present for the entire procedure and always immediately available. Dr. Tate performed the entire surgery, and documentation used to initiate this operative report. I entered the information in our [employer] DocFlowsheet with the information provided by Dr. Tate on her handwritten, paper format, surgical worksheet, which was then used to initiate the create of this note. Dr. Tate then reviewed and edited the note as needed to complete the note. Cheyenne Davis PENDING SALE TO [facility] I have reviewed the note, edited it as necessary and performed the entire procedure. Karmen Tate MD Social Work Coordinator Karmne Tate MD PROCEDURE/MINOR SURG ICAL ORDERABLES Care Teams Display Designer Outside Relationship Specialty Start Date End Date Lv Rothman [place] [address] PCP - General 04/14/12
--- OUTSIDE RECORDS SUMMARY | 2024-09-20 09:48 | XMS_ITS | Encounter Summary ---
Author Organization [facility] Address [address] [place] [address] Care Team Providers Care Management Intern Name Role Phone Lv Rothman MD Primary Care Provider [phone] Encounter Details Date Type Department Care Team (Late st Contact Info) Description 10/22/2017 Lab Requisition [facility] Care DermPath Lab [address] [place] [phone] Grayson Cason MD [address] [place] [address] Social History Tobacco Use Types [...] AM CDT) Case Report Dermatopathology Report Case: [id number] Authorizing Provider: Grayson Cason MD Collected: 10/21/2017 12:00 AM Pathologist: Evgeny Serna MD Received: 10/22/2017 10:35 AM Specimens: A) - Skin, right helix rim B) - Skin, left upper lat back 8 6:12 PM CDT DERMATOPATHOLOGY LABORATORY Final Diagnosis Specimen A. SKIN, right helix rim: HYPERPLASTIC (HYPERTROPHIC) ACTINIC KERATOSIS (L57.0) PRESENT AT MARGIN Specimen B. SKIN, left upper lat back: HYPERPLASTIC (HYPERTROPHIC) ACTINIC KERATOSIS (L57.0) PRESENT AT MARGIN 6:12 PM T DERMATOPATHOLOGY LABORATORY Clinical History A: R/O HAK, SCC, BCC. Check margins. B: R/O SCC. Check margins. 6:12 PM CDT DERMATOPATHOLOGY LABORATORY Gross Description Specimen: A: Received is one formalin filled container labeled with the patient's name and designated right helix rim. The specimen consists of a shave biopsy measuring [id number].The margin is inked green. Jar 0. Specimen: B: Received is one formalin filled container labeled with the patient's name and designated left upper lat back. The specimen consists of a shave biopsy measuring [id number].The margin is inked green. Jar 0. 6:12 PM T DERMATOPATHOLOGY LABORATORY Microscopic Description Specimen A. SKIN, [...] present at the margin of the specimen. 6:12 PM T DERMATOPATHOLOGY LABORATORY Disclaimer An external and internal positive and negative controls are appropriate for the histochemical, immunohistochemical and immunofluorescence stain(s) in this case (if any), except where stated explicitly. The performance characteristics of the stain(s) cited in this report were developed and its performance characteristic determined by the Dermatopathology Laboratory at [facility]. These tests need not be, and therefore are not, approved by the [place] Food and Drug Administration. The tests are used for clinical purposes. Billing Codes Specimen Charges Stain Charges 13053 39605 1 1 6:12 PM CDT DERMATOPATHOLOGY LABORATORY Embedded Images 6:12 PM CDT DERMATOPATHOLOGY LABORATORY Pathology/Cytology TISSUE SPECIMEN FROM SKIN / Unknown 10/21/2017 10/22/2017 10:35 AM CDT Miscellaneous samples (specimen) TISSUE SPECIMEN FROM SKIN / Unknown 10/21/2017 10/22/2017 10:35 AM CDT Grayson Cason MD LAB - PATHOLOGY/CYTO LOGY ORDERABLES DERMATOPATHOLOGY LABORATORY [facility] - Department of Dermatology [address] [place] [address] 5th Floor Lab [address] [phone] documented in this encounter Visit Diagnoses Not on filedocumented in this encounter Care Teams Management Intern Relationship Specialty Start Date End Date Lv Rothman MD [address] [place] [address] PCP - General 04/14/12 documented as of this encounter
[2024-09-20 10:16] LABS: Anion Gap 9 mmol/L (4-12); Blood Urea Nitrogen 34 mg/dL (9-20); Calcium 9.2 mg/dL (8.4-10.2); Carbon Dioxide 27 mmol/L (22-30); Chloride 105 mmol/L (98-107); Estimated Glomerular Filt Rate 31; Glucose 131 mg/dL (65-110); Potassium 4.7 mmol/L (3.4-5.0); Sodium 141 mmol/L (137-145)
[2024-09-20 10:57] LABS: Iron 61 ug/dL (49-181)
[2024-09-20 11:12] LABS: Percent Iron Saturation 28 % (20-50)
== END 2024-09-20 08:56 | disposition home or self-care (01) ==
LOC: ANHLAB 08:56
PROVIDERS: PCP Family Medicine; Visit Provider Internal Medicine Hematology & Oncology
DX: E83.119 Hemochromatosis, unspecified (principal)
CPT/HCPCS: 36415; 80048; 82728; 83540; 83550; 85025

== ENCOUNTER 2024-10-20 07:52 | Outpatient (CLI) | payer MEDICARE, SELFPAY ==
--- OUTSIDE RECORDS SUMMARY | 2024-10-20 07:59 | XMS_ITS | Clinical Summary ---
Author Organization [facility] Address [address], [facility] [address] [place] [address] Phone Care Team Providers Care Activity Manager Name Role Phone Lv Rothman MD Primary Care Provider [phone] Lenin Carrasco DO Unavailable [phone] Medications allopurinol (ZYLOPRIM) 300 MG Tablet Take 200 mg by mouth daily. 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 Not on file Not on file Last Filed Vital Signs Vital Sign Reading Time Taken Comments Blood Pressure 128/68 09/21/2015 12:10 PM RETAIL DIRECTOR Pulse 66 09/13/2015 8:26 AM RETAIL DIRECTOR Temperature 37 C (98.6 F) 09/21/2015 12:10 PM RETAIL DIRECTOR Respiratory Rate 16 09/21/2015 12:10 PM RETAIL DIRECTOR Oxygen Saturation 94% 09/21/2015 12:10 PM RETAIL DIRECTOR Inhaled Oxygen Concentration - - Weight 88.5 kg (195 lb) 09/18/2015 3:00 PM RETAIL DIRECTOR Height 177.8 cm (5' 10 ) 09/18/2015 3:00 PM RETAIL DIRECTOR Body Mass Index 27.98 09/18/2015 3:00 PM RETAIL DIRECTOR Plan of Treatment Health Maintenance Due Date [...] patient's age to complete this topic Insurance [facility] MEDICARE Care Teams Activity Manager Relationship Specialty Start Date End Date Lv Rothman MD [address] [place] [address] PCP - General Family Medicine 09/13/15 Lenin Carrasco DO [address] [place] [address] Gastroenterology 09/13/15
--- OUTSIDE RECORDS SUMMARY | 2024-10-20 07:59 | XMS_ITS | Clinical Summary ---
Author Organization [facility] [address] Address [address] [place] [address] Care Team Providers Care Field Insurance Sales Manager Name Role Phone Boyd Sandovalkimberly Cuevana Primary Care Provider [phone] Allergies No known active allergies Medications Eliquis [...] on file Legal Sex Male 9:09 PM RETAIL LOAN ORIGINATOR ASSISTANT Gender Identity Not on file Sexual Orientation [...] 04/24/2022, 10/29/2021, Additional history exists Influenza Vaccine (Season Ended) 2025 03/27/2023, 04/10/2022, 04/06/2022, Additional history exists DTaP/Tdap/Td Vaccine (2 - Td or Tdap) 03/27/2033 03/27/2023 Pneumococcal vaccine 65+ Completed 020, 03/27/2019, 02/11/2014 Zoster Vaccine Completed 10/29/2021, 08/03/2021 Insurance MEDICARE [facility] Care Teams Field Insurance Sales Manager Relationship Specialty Start Date End Date Sukumar Sandoval DO [address] [place] [address] PCP - General Internal Medicine 05/07/23
--- OUTSIDE RECORDS SUMMARY | 2024-10-20 07:59 | XMS_ITS | Encounter Summary ---
Author Organization [facility] Address [address] [place] [address] Care Team Providers Care Roller Operator Name Role Phone Lv Rothman MD Primary Care Provider [phone] Encounter Details Date Type Department Care Team (Late st Contact Info) Description 10/22/2017 Lab Requisition [facility] Care DermPath Lab [address] [facility] [place] [phone] Grayson Cason MD [address] [place] [address] Social History Tobacco Use Types [...] AM CDT) Case Report Dermatopathology Report Case: [id number] Authorizing Provider: Grayson Cason MD Collected: 10/21/2017 [...] specimen consists of a shave biopsy measuring [id number].The margin is inked green. Jar 0. Specimen: B: Received is one formalin filled container labeled with the patient's name and designated left upper lat back. The specimen consists of a shave biopsy measuring [id number].The margin is inked green. Jar 0. 6:12 [...] characteristic determined by the Dermatopathology Laboratory at [facility]. These tests need not be, and therefore are not, approved by the [place] Food and Drug Administration. The tests are used for clinical purposes. Billing Codes Specimen Charges Stain Charges 65604 84005 1 1 6:12 PM CDT DERMATOPATHOLOGY LABORATORY Embedded Images 6:12 PM CDT DERMATOPATHOLOGY LABORATORY Pathology/Cytology TISSUE SPECIMEN FROM SKIN / Unknown 10/21/2017 10/22/2017 10:35 AM CDT Miscellaneous samples (specimen) TISSUE SPECIMEN FROM SKIN / Unknown 10/21/2017 10/22/2017 10:35 AM CDT Grayson Cason MD LAB - PATHOLOGY/CYTO LOGY ORDERABLES DERMATOPATHOLOGY LABORATORY [facility] - Department of Dermatology [address] [place] [address] 5th Floor Lab [address] [phone] documented in this encounter Visit Diagnoses Not on filedocumented in this encounter Care Teams Roller Operator Relationship Specialty Start Date End Date Lv Rothman MD [address] [place] [address] PCP - General 04/14/12 documented as of this encounter
--- OUTSIDE RECORDS SUMMARY | 2024-10-20 07:59 | XMS_ITS | Referral Summary ---
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
--- OUTSIDE RECORDS SUMMARY | 2024-10-20 07:59 | XMS_ITS | Clinical Summary ---
Author Organization [facility] Address [address] [place] [address] Care Team Providers Care Material Reprocessing Associate Name Role Phone Chris Rey MD Primary [...] Encounters Date Type Department Care Team Description 10/18/2024 Telephone [facility] Oncology and Hematology - [place] [address] [place] [address] Sushant Kirby MD Surgical Clearance 09/29/2024 External Device Data STL ABSTRACTION Provider, Abstract 09/24/2024 8:30 AM CDT Office Visit [facility] Oncology and Hematology [facility] [address] [place] [address] Sushant Kirby MD Hemochromatosis, unspecified hemochromatosis type (Primary Dx) 09/21/2024 Orders Only [facility] Oncology and Hematology - [place] [address] [place] [address] Sushant Kirby MD 09/20/2024 Orders Only [facility] Oncology and Hematology [facility] [address] [place] [address] Sushant Kirby MD 09/18/2024 External Device Data STL ABSTRACTION Provider, Abstract 09/17/2024 External Device Data STL ABSTRACTION Provider, Abstract 08/31/2024 External Device Data STL ABSTRACTION Provider, Abstract 08/04/2024 External Device Data STL ABSTRACTION Provider, Abstract 08/04/2024 External Device Data STL ABSTRACTION Provider, Abstract 07/30/2024 Abstract [facility] Oncology and Hematology [facility] [address] [place] [address] Sushant Kirby MD 07/30/2024 Refill [facility] Oncology and Hematology [facility] [address] [place] [address] uSshant Kirby MD from Last 3 Months Family History Medical [...] Sign Reading Time Taken Comments Blood Pressure 132/66 09/24/2024 8:35 AM CDT Pulse 86 09/24/2024 8:35 AM CDT Temperature 35.8 C (96.4 F) 09/24/2024 8:35 AM CDT Respiratory Rate 15 09/24/2024 8:35 AM CDT Oxygen Saturation 96% 09/24/2024 8:35 AM CDT Inhaled Oxygen Concentration - - Weight 85.3 kg (188 lb) 09/24/2024 8:35 AM CDT Height 177.8 cm (5' 10 ) 11/14/2021 8:59 AM CDT Body Mass Index 26.98 11/14/2021 8:59 AM CDT Plan of Treatment Upcoming Encounters Date Type Department Care Team (Late st Contact Info) Description 04/08/2025 8:30 AM CDT Office Visit [facility] Oncology and Hematology [facility] [address] [facility] [address] [place] [address] Sushant Kirby MD [address] [facility] [address] [place] [address] Health Maintenance Due Date Last [...] Flex Sig/CT Colonography Q 5 years Discontinued Procedures Procedure Name Priority Date/Time Associated Diagnosis Comments BASIC METABOLIC PANEL Routine 09/20/2024 1:42 PM CDT IRON, TIBC, AND PERCENT SATURATION Routine 09/20/2024 10:52 AM CDT from Last 3 Months Results * BASIC METABOLIC PANEL (09/20/2024 1:42 PM CDT) Blood Sushant Kirby MD CHEMISTRY ORDERABLES Final Resu lt * IRON, TIBC, AND PERCENT SATURATION (09/20/2024 10:52 AM CDT) Blood Sushant Kirby MD CHEMISTRY ORDERABLES Final Resu lt from Last 3 Months Insurance MEDICARE PART A AND B [facility] MEDICARE PART A AND B BS SUPP Care Teams Material Reprocessing Associate Relationship Specialty Start Date End Date Chris Rey MD [address] [place] [address] PCP - General Family Practice 03/18/17
--- OUTSIDE RECORDS SUMMARY | 2024-10-20 07:59 | XMS_ITS | Encounter Summary ---
Author Organization [facility] Address [address] [place] [address] Care Team Providers Care Aquatics Group Fitness Instructor Name Role Phone Lv Rothman MD Primary Care Provider [phone] Encounter Details Date Type Department Care Team (Late st Contact Info) Description 12/28/2020 Lab Requisition [facility] DermPath Lab [address] [place] [address] Grayson Cason MD [address] [place] [address] Social History Tobacco Use Types Packs/Day Years [...] AM CDT) Case Report Dermatopathology Report Case: [id number] Authorizing Provider: Grayson Cason MD Collected: 12/27/2020 12:00 AM Ordering Location: [facility] DermPath Lab Received: 12/28/2020 01:28 PM [...] of a non-oriented ellipse of skin measuring [id number]. The epidermal surface is unremarkable. The margin [...] determined by the Dermatopathology Laboratory at [facility], directed by Dr. Martinez Serna. These tests need not be, and therefore are not, approved by the [place] Food and Drug Administration. The tests are used for clinical purposes. Billing Codes Specimen Charges Stain Charges 07993 1 12:48 PM CDT DERMATOPATHOLOGY LABORATORY Embedded Images 12:48 PM CDT DERMATOPATHOLOGY LABORATORY Pathology/Cytolog y TISSUE SPECIMEN FROM SKIN / Unknown 12/27/2020 12/28/2020 1:28 PM CDT Grayson Cason MD LAB - PATHOLOGY/CYTO LOGY ORDERABLES DERMATOPATHOLOGY LABORATORY [facility] - Department of Dermatology [facility] Medicine [address] [place] [address], [address] [phone] documented in this encounter Visit Diagnoses Not on filedocumented in this encounter Care Teams Aquatics Group Fitness Instructor Relationship Specialty Start Date End Date Lv Rothman MD [address] [place] [address] PCP - General 04/14/12 documented as of this encounter
--- OUTSIDE RECORDS SUMMARY | 2024-10-20 07:59 | XMS_ITS | Clinical Summary ---
Author Organization [facility] Address [address] [facility] [place] [address] Care Team Providers Care Director Home Health Name Role Phone Lv Rothman MD Primary Care Provider [phone] Source Comments [facility],non-owned Affiliates and Associated Physician Practices is amultiple site organization consisting of ambulatory clinics and hospital sitesin [place], [place], [place] and [place]. This disclosure is being madepursuant to the Care Everywhere program and may not contain all information available regarding this patient. Last updated 18.[facility] Allergies No known active allergies Medications * [...] VACCINE ( - 2023-2 5 season) 2024 DEPRESSION SCREENING 07/14/2024 INFLUENZA VACCINE (Season Ended) 2025 03/27/2019, 05/15/2015, 02/11/2014 HEPATITIS B VACCINE Aged Out No longe r eligible based on patient's age to complete this topic HIB VACCINE Aged Out No longer eligi ble based on patient's age to complete this topic HPV VACCINE Aged Out No longer eligi ble based on patient's age to complete this topic MENINGOCOCCAL (Group B) VACCINE SHARED DECISION-MAKING Aged Out No longer eligible based on patient's age to complete this topic MENINGOCOCCAL GROUPS A/C/Y/W VACCINE Aged Out No longer eligible b ased on patient's age to complete this topic Care Teams Director Home Health Relationship Specialty Start Date End Date vL Rothman MD [address] [place] [address] PCP - General 04/14/12
--- OUTSIDE RECORDS SUMMARY | 2024-10-20 07:59 | XMS_ITS | Clinical Summary ---
Author Organization [facility] Address [address] [place] [address] Phone Care Team Providers Care Onion Topper Name Role Phone Chris Rey MD Primary Care Provider Allergies No known active allergies Medications cholecalciferol (VITAMIN D3 SUPER STRENGTH) 2000 units tablet 1 dialy 0 9 Active allopurinol (ZYLOPRIM) 300 MG tablet 1 daily 0 8 Active Nebivolol HCl (BYSTOLIC) 20 MG tablet 1 daily 0 8 Active aspirin 325 MG tablet Take 325 mg by mouth daily Active FLUZONE HIGH-DOSE 0.5 ML suspension prefilled syringe TO BE ADMINISTERED BY PHARMACIST FOR IMMUNIZATION 0 9 Active ELIQUIS 5 MG tablet Take 5 mg by mouth 2 (two) times a day 0 Active Cyanocobalamin- Methylcobalamin 600-600 MCG sublingual tablet Take by mouth 8 Active lisinopril (PRINIVIL) 40 MG tablet Take 1 tablet (40 mg total) by mouth 1 (one) time each day 90 tablet 3 2 Active Active Problems Problem Noted Date Diagnosed Date Stage 3a chronic kidney disease 04/13/2018 Essential (primary) hypertension 04/13/2018 Other pulmonary embolism without acute cor pulmo nale 04/13/2018 Gout 04/13/2018 Hypercoagulable state 03/18/2017 Iron deficiency anemia 03/18/2017 Vitamin B12 deficiency (non anemic) 03/18/2017 Immunizations Immunization Administration Dates Next Due Fluzone High-Dose 03/21/2020 [...] at Not on file Legal Sex Male 8:34 AM MST Gender Identity Not on file Sexual Orientation [...] Due Date Last Done Comments Influenza Vaccine (Season Ended) 2025 04/10/2022, 03/28/2021, 03/27/2019, Additional history exists Pneumococcal PPSV23/PCV13 65 + Years / Low and Medium Risk Completed 03/21/2020, 03/27/2019, 02/11/2014 Insurance MEDICARE [facility] Care Teams Onion Topper Relationship Specialty Start Date End Date Chris Rey MD [address] [place] [address] PCP - General Internal Medicine 02/17/19
--- OUTSIDE RECORDS SUMMARY | 2024-10-20 07:59 | XMS_ITS | Encounter Summary ---
Author Organization [facility] Address [address] [facility] [place] [address] Care Team Providers Care Fence Builder Name Role Phone Lv Rothman MD Primary Care Provider [phone] Encounter Details Date Type Department Care Team (Late st Contact Info) Description 02/10/2020 Lab Requisition [facility] DermPath Lab [address] [place] [address] Grayson Cason MD [address] [place] [address] Social History Tobacco Use Types Packs/Day Years [...] AM CDT) Case Report Dermatopathology Report Case: [id number] Authorizing Provider: Grayson Cason MD Collected: 02/09/2020 12:00 AM Ordering Location: [facility] DermPath Lab Received: 02/10/2020 11:51 AM Pathologist: [...] specimen consists of a shave biopsy measuring [id number]. Jar 0. 0 4:30 PM CDT DERMATOPATHOLOGY [...] characteristic determined by the Dermatopathology Laboratory at [facility], directed by Dr. Martinez Serna. These tests need not be, and therefore are not, approved by the [place] Food and Drug Administration. The tests are used for clinical purposes. Billing Codes Specimen Charges Stain Charges [id number] 1 0 4:30 PM CDT DERMATOPATHOLOGY LABORATORY Embedded Images 0 4:30 PM CDT DERMATOPATHOLOGY LABORATORY Pathology/Cytolog y TISSUE SPECIMEN FROM SKIN / Unknown 02/09/2020 02/10/2020 11:51 AM CDT Grayson Cason MD LAB - PATHOLOGY/CYTO LOGY ORDERABLES DERMATOPATHOLOGY LABORATORY [facility] - Department of Dermatology [facility] [address], [facility] [phone] documented in this encounter Visit Diagnoses Not on filedocumented in this encounter Care Teams Fence Builder Relationship Specialty Start Date End Date Lv Rothman MD [address] [place] [address] PCP - General 04/14/12 documented as of this encounter
[2024-10-20 08:52] LABS: INR 1.2; Prothrombin Time 15.7 Seconds (11.1-14.7)
[2024-10-20 08:53] LABS: Partial Thromboplastin Time 38.2 Seconds (22.3-36.8)
== END 2024-10-20 07:53 | disposition home or self-care (01) ==
LOC: ANHSURGERY 07:55
PROVIDERS: PCP Family Medicine; Visit Provider Urology
DX: C67.9 Malignant neoplasm of bladder, unspecified (principal); Z01.812 Encounter for preprocedural laboratory examination
CPT/HCPCS: 36415; 85610; 85730; 87086

== ENCOUNTER 2024-10-22 09:21 | Outpatient (CLI) | payer MEDICARE, SELFPAY ==
--- OUTSIDE RECORDS SUMMARY | 2024-10-22 09:45 | XMS_ITS | Clinical Summary ---
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
--- OUTSIDE RECORDS SUMMARY | 2024-10-22 09:45 | XMS_ITS | Encounter Summary ---
Author Organization [facility] Address [address] [facility] [place] [address] Care Team Providers Care Medical Appointment Scheduler Name Role Phone Lv Rothman MD Primary Care Provider [phone] Encounter Details Date Type Department Care Team (Late st Contact Info) Description 12/28/2020 Lab Requisition [facility] DermPath Lab [address] [facility] [place] [phone] Grasyon Cason MD [address] [place] [address] Social History Tobacco Use Types Packs/Day Years [...] AM CDT) Case Report Dermatopathology Report Case: [id number] Authorizing Provider: Grayson Cason MD Collected: 12/27/2020 12:00 AM Ordering Location: [facility] DermPath Lab Received: 12/28/2020 01:28 PM Pathologist: [...] of a non-oriented ellipse of skin measuring [id number]. The epidermal surface is unremarkable. The margin [...] characteristic determined by the Dermatopathology Laboratory at [facility], directed by Dr. Martinez Serna. These tests need not be, and therefore are not, approved by the [place] Food and Drug Administration. The tests are used for clinical purposes. Billing Codes Specimen Charges Stain Charges [id number] 1 12:48 PM CDT DERMATOPATHOLOGY LABORATORY Embedded Images 12:48 PM CDT DERMATOPATHOLOGY LABORATORY Pathology/Cytolog y TISSUE SPECIMEN FROM SKIN / Unknown 12/27/2020 12/28/2020 1:28 PM CDT Grayson Cason MD LAB - PATHOLOGY/CYTO LOGY ORDERABLES DERMATOPATHOLOGY LABORATORY [facility] - Department of Dermatology [facility] Medicine [address] [place] [address], [address] Floor [address] [phone] documented in this encounter Visit Diagnoses Not on filedocumented in this encounter Care Teams Medical Appointment Scheduler Relationship Specialty Start Date End Date Lv Rothman MD [address] [place] [address] PCP - General 04/14/12 documented as of this encounter
--- OUTSIDE RECORDS SUMMARY | 2024-10-22 09:45 | XMS_ITS | Encounter Summary ---
Author Organization [facility] Address [address] [facility] [place] [address] Care Team Providers Care Bearing Grinder Name Role Phone Lv Rothman MD Primary Care Provider [phone] Encounter Details Date Type Department Care Team (Late st Contact Info) Description 10/22/2017 Lab Requisition [facility] Care DermPath Lab [address] [facility] [place] [phone] Grayson Cason MD [address] [place] [address] Social History Tobacco Use Types [...] AM CDT) Case Report Dermatopathology Report Case: [id number] Authorizing Provider: Grayson Cason MD Collected: 10/21/2017 [...] specimen consists of a shave biopsy measuring [id number].The margin is inked green. Jar 0. Specimen: B: Received is one formalin filled container labeled with the patient's name and designated left upper lat back. The specimen consists of a shave biopsy measuring [id number].The margin is inked green. Jar 0. 6:12 [...] characteristic determined by the Dermatopathology Laboratory at [facility]. These tests need not be, and therefore are not, approved by the [place] Food and Drug Administration. The tests are used for clinical purposes. Billing Codes Specimen Charges Stain Charges 08708 98016 1 1 6:12 PM CDT DERMATOPATHOLOGY LABORATORY Embedded Images 6:12 PM CDT DERMATOPATHOLOGY LABORATORY Pathology/Cytology TISSUE SPECIMEN FROM SKIN / Unknown 10/21/2017 10/22/2017 10:35 AM CDT Miscellaneous samples (specimen) TISSUE SPECIMEN FROM SKIN / Unknown 10/21/2017 10/22/2017 10:35 AM CDT Grayson Cason MD LAB - PATHOLOGY/CYTO LOGY ORDERABLES DERMATOPATHOLOGY LABORATORY [facility] - Department of Dermatology [address] [place] [address] 5th Floor Lab [address] [phone] documented in this encounter Visit Diagnoses Not on filedocumented in this encounter Care Teams Bearing Grinder Relationship Specialty Start Date End Date Lv Rothman MD [address] [place] [address] PCP - General 04/14/12 documented as of this encounter
--- OUTSIDE RECORDS SUMMARY | 2024-10-22 09:45 | XMS_ITS | Clinical Summary ---
Author Organization [facility] Address [address] [place] [address] Care Team Providers Care Hoop Riveting Machine Operator Name Role Phone Chris Rey MD [...] Type Department Care Team Description 10/18/2024 Telephone [facility] Oncology and Hematology - [place] [address] [place] [address] Sushant Kirby MD Surgical Clearance 09/29/2024 External Device Data STL ABSTRACTION Provider, Abstract 09/24/2024 8:30 AM CDT Office Visit [facility] Oncology and Hematology [facility] [address] [place] [address] Sushant Kirby MD Hemochromatosis, unspecified hemochromatosis type (Primary Dx) 09/21/2024 Orders Only [facility] Oncology and Hematology - [place] [address] [place] [address] Sushant Kirby MD 09/20/2024 Orders Only [facility] Oncology and Hematology [facility] [address] [place] [address] Sushant Kirby MD 09/18/2024 External Device Data STL ABSTRACTION Provider, Abstract 09/17/2024 External Device Data STL ABSTRACTION Provider, Abstract 08/31/2024 External Device Data STL ABSTRACTION Provider, Abstract 08/04/2024 External Device Data STL ABSTRACTION Provider, Abstract 08/04/2024 External Device Data STL ABSTRACTION Provider, Abstract 07/30/2024 Abstract [facility] Oncology and Hematology [facility] [address] [place] [address] Sushant Kirby MD 07/30/2024 Refill [facility] Oncology and Hematology [facility] [address] [place] [address] Sushant Kirby MD from Last 3 Months Family [...] Description 04/08/2025 8:30 AM CDT Office Visit [facility] Oncology and Hematology [facility] [address] [facility] [address] [place] [address] Sushant Kirby MD [address] [facility] [address] [place] [address] Health Maintenance Due Date Last [...] Months Insurance MEDICARE PART A AND B [facility] MEDICARE PART A AND B BS SUPP Care Teams Hoop Riveting Machine Operator Relationship Specialty Start Date End Date Chris Rey MD [address] [place] [address] PCP - General Family Practice 03/18/17
--- OUTSIDE RECORDS SUMMARY | 2024-10-22 09:45 | XMS_ITS | Clinical Summary ---
Author Organization [facility] Address [address] [facility] [place] [address] Care Team Providers Care Adhesive Bandage Making Operator Name Role Phone Lv Rothman MD Primary Care Provider [phone] Source Comments [facility],non-owned Affiliates and Associated Physician Practices is amultiple site organization consisting of ambulatory clinics and hospital sitesin [place], [place], [place] and [place]. This disclosure is being madepursuant to the Care Everywhere program and may not contain all information available regarding this patient. Last updated 18.[facility] Allergies No known active allergies Medications * [...] age to complete this topic Care Teams Adhesive Bandage Making Operator Relationship Specialty Start Date End Date Lv Rothman MD [address] [place] [address] PCP - General 04/14/12
--- OUTSIDE RECORDS SUMMARY | 2024-10-22 09:45 | XMS_ITS | Encounter Summary ---
Author Organization [facility] Address [address] [facility] [place] [address] Care Team Providers Care Launch Leader Name Role Phone Lv Rothman MD Primary Care Provider [phone] Encounter Details Date Type Department Care Team (Late st Contact Info) Description 02/10/2020 Lab Requisition [facility] DermPath Lab [address] [place] [address] Grayson Cason MD [address] [place] [address] Social History Tobacco Use Types Packs/Day Years [...] AM CDT) Case Report Dermatopathology Report Case: [id number] Authorizing Provider: Grayson Cason MD Collected: 02/09/2020 12:00 AM Ordering Location: [facility] DermPath Lab Received: 02/10/2020 11:51 AM [...] specimen consists of a shave biopsy measuring [id number]. Jar 0. 0 4:30 PM CDT DERMATOPATHOLOGY [...] by the Dermatopathology Laboratory at [facility], directed by Dr. Martinez Serna. These tests need not be, and therefore are not, approved by the [place] Food and Drug Administration. The tests are used for clinical purposes. Billing Codes Specimen Charges Stain Charges [id number] 1 0 4:30 PM CDT DERMATOPATHOLOGY LABORATORY Embedded Images 0 4:30 PM CDT DERMATOPATHOLOGY LABORATORY Pathology/Cytolog y TISSUE SPECIMEN FROM SKIN / Unknown 02/09/2020 02/10/2020 11:51 AM CDT Grayson Cason MD LAB - PATHOLOGY/CYTO LOGY ORDERABLES DERMATOPATHOLOGY LABORATORY [facility] - Department of Dermatology [facility] [place] [address], [facility] [phone] documented in this encounter Visit Diagnoses Not on filedocumented in this encounter Care Teams Launch Leader Relationship Specialty Start Date End Date Lv Rothman MD [address] [place] [address] PCP - General 04/14/12 documented as of this encounter
--- OUTSIDE RECORDS SUMMARY | 2024-10-22 09:45 | XMS_ITS | Referral Summary ---
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
--- OUTSIDE RECORDS SUMMARY | 2024-10-22 09:45 | XMS_ITS | Clinical Summary ---
Author Organization [facility] Address [address] [place] [address] Phone Care Team Providers Care Dog Daycare Provider Name Role Phone Lv Rothman MD Primary Care Provider [phone] Lenin Carrasco DO Unavailable [phone] Medications allopurinol (ZYLOPRIM) 300 MG Tablet Take 200 mg by mouth daily. 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 Not on file Not on file Last Filed Vital Signs Vital Sign Reading Time Taken Comments Blood Pressure 128/68 09/21/2015 12:10 PM DIRECTOR OF TAX SERVICES Pulse 66 09/13/2015 8:26 AM DIRECTOR OF TAX SERVICES Temperature 37 C (98.6 F) 09/21/2015 12:10 PM DIRECTOR OF TAX SERVICES Respiratory Rate 16 09/21/2015 12:10 PM DIRECTOR OF TAX SERVICES Oxygen Saturation 94% 09/21/2015 12:10 PM DIRECTOR OF TAX SERVICES Inhaled Oxygen Concentration - - Weight 88.5 kg (195 lb) 09/18/2015 3:00 PM DIRECTOR OF TAX SERVICES Height 177.8 cm (5' 10 ) 09/18/2015 3:00 PM DIRECTOR OF TAX SERVICES Body Mass Index 27.98 09/18/2015 3:00 PM DIRECTOR OF TAX SERVICES Plan of Treatment Health Maintenance Due Date [...] patient's age to complete this topic Insurance [facility] MEDICARE Care Teams Dog Daycare Provider Relationship Specialty Start Date End Date Lv Rothman MD [address] [place] [address] PCP - General Family Medicine 09/13/15 Lenin Carrasco DO [address] [place] [address] Gastroenterology 09/13/15
--- OUTSIDE RECORDS SUMMARY | 2024-10-22 09:45 | XMS_ITS | Clinical Summary ---
Author Organization [facility] Address [address] [place] [address] Phone Care Team Providers Care Stable Attendant Name Role Phone Chris Rey MD Primary [...] Completed 03/21/2020, 03/27/2019, 02/11/2014 Insurance MEDICARE [facility] Care Teams Stable Attendant Relationship Specialty Start Date End Date Chris Rey MD [address] [place] [address] PCP - General Internal Medicine 02/17/19
[2024-10-22 18:10] LABS: Hematocrit 42.9 % (42.0-52.0); Mean Corpuscular HGB Conc 32.6 g/dl (32-36); Mean Corpuscular Hemoglobin 34.2 pg (26-34); Mean Corpuscular Volume 104.9 fl (80-100); Mean Platelet Volume 9.9 fl (7.4-10.4); Platelet Count Result 190 k/mm3 (150-375); Red Blood Count 4.09 M/mm3 (4.6-6.20); Red Cell Distribution Width 13.7 % (11.5-14.5); White Blood Count 7.8 K/mm3 (4.5-10.0)
[2024-10-22 18:26] LABS: Hemoglobin A1C 6.6 % (<5.7)
[2024-10-22 18:41] LABS: Parathyroid Intact 37.2 pg/mL (14.5-75.2)
[2024-10-22 18:42] LABS: Albumin Level 4.2 g/dL (3.5-5.1); Anion Gap 11 mmol/L (4-12); Blood Urea Nitrogen 46 mg/dL (9-20); Calcium 9.2 mg/dL (8.4-10.2); Carbon Dioxide 27 mmol/L (22-30); Chloride 102 mmol/L (98-107); Estimated Glomerular Filt Rate 26; Glucose 115 mg/dL (65-110); Phosphorus 4.3 mg/dL (2.5-4.5); Potassium 5.1 mmol/L (3.4-5.0); Sodium 140 mmol/L (137-145)
[2024-10-22 18:54] LABS: Creatinine Urine 68.6 mg/dL; Total Protein Urine Random 12 mg/dL; Ur Ttl Prot Creatinine Ratio 0.17 mg/mg (0-0.20)
== END 2024-10-22 09:22 | disposition home or self-care (01) ==
LOC: ANHGOSHLAB 09:23
PROVIDERS: PCP Family Medicine; Visit Provider Internal Medicine Nephrology
DX: N18.32 Chronic kidney disease, stage 3b (principal); E11.9 Type 2 diabetes mellitus without complications
CPT/HCPCS: 36415; 80069; 82570; 83036; 83970; 84156; 85027

== ENCOUNTER 2024-10-26 00:44 | Day surgery (SDC) | payer MEDICARE, SELFPAY ==
--- NOTE | 2024-10-18 11:04 | PC.NURSE ---
Report to the Outpatient Waiting Room, entrance under the green pavilion located off [facility], at time ___6 AM____ on date __10/26/24 . Planned Procedure Time: ___7:30 AM .? Time changes happen often and if your time is changed the preop area will call you the afternoon before. - You and your visitor will be asked to self-screen and do not enter if you have any COVID symptoms. Please call surgeon if you need to reschedule. - A mask is optional within the hospital at this time. Patients may have clear liquids (water, carbonated beverages, clear teas, apple juice) until 3 hours prior to surgery ( 4:30 AM) with a maximum of 20 ounces. - No food from midnight until time of surgery and no smoking, or chewing tobacco (or any form of nicotine). No chewing gum, candy or mints. Take only the following medications with a SIP of water on the morning of surgery: __HYDRALAZINE DO NOT STOP ANY OF YOUR OTHER PRESCRIPTION MEDICATIONS PRIOR TO SURGERY EXCEPT THE FOLLOWING Hold all vitamins and supplements for 3 days per anesthesiologist.LAST DOSE Medications to discontinue per physician ____PATIENT STATES HOLD ELIQUIS 3 DAYS PRE OP PER DR RIOS Date to take last dose 10/22/24 Please no make-up, nail micronesian, hairspray, perfume, deodorant, or body powder the day of surgery.? No jewelry (including any body piercings) or valuables the day of surgery, leave them at home.? Please take a shower or bath the night before, or the morning of, surgery with an antibacterial soap.? Wear comfortable, loose fitting clothing.? Children are encouraged to wear pajamas. - Jewelry must be removed prior to entering the operating room.? Rings and piercings that are not removed may be cut off. - The hospital will not accept responsibility for valuables.? - Please leave all valuables, including medications, at home the day of surgery. If you are going home after surgery, a licensed delivery driver/customer service must drive you home.? - NO public transportation without another adult if you receive anesthesia. - We recommend that an adult stay with you for 24 hours following discharge. - We also recommend that you do not drive, make important decision, drink alcoholic beverages, or take any drugs that were not prescribed by your health care provider for at least 24 hours after your discharge time. For Pediatric surgeries, we recommend two adults accompany the child home. Follow any additional instructions given to you from your surgeon. Telephone instructions given to ___PATIENT and asked if any additional questions and then verbalized understanding. Patient advised to call surgeon office or pre surgery nurse liaison [phone] if any additional questions.
[2024-10-18 11:10] VITALS: BMI 26.5
[2024-10-26] VITALS (7 sets, daily range): BP systolic 124–153; BP diastolic 65–84; PULSE 67–75; RESP 16–18; TEMP 36.2–36.6; O2SAT 98–100
--- OUTSIDE RECORDS SUMMARY | 2024-10-26 00:47 | XMS_ITS | Encounter Summary ---
Author Organization [facility] Address [address] [place] [address] Care Team Providers Care Personal Computer Network Engineer Name Role Phone Lv Rothman MD Primary Care Provider [phone] Encounter Details Date Type Department Care Team (Late st Contact Info) Description 12/28/2020 Lab Requisition [facility] DermPath Lab [address] [place] [id number] Grayson Cason MD [address] [place] [address] Social History Tobacco Use Types Packs/Day Years Used Date Smoking Tobacco: Never Smokeless Tobacco: Never Alcohol Use Standard Drinks/Week Comments Not Currently 0 (1 standard drink = 0.6 oz pur e alcohol) Sex and Gender Information Value Date Recorded Sex Assigned at Not on file 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 Gender Identity Not on file Sexual Orientation Not on file documented as of this encounter Plan of Treatment Not on file documented as of this encounter Procedures Procedure Name Priority Date/Time Associated Diagnosis Comments DERMATOPATHOLOGY Routine 12/27/2020 12:0 0 AM CDT documented in this encounter Results * DERMATOPATHOLOGY (12/27/2020 12:00 AM CDT) Case Report Dermatopathology Report Case: [id number] Authorizing Provider: Grayson Cason MD Collected: 12/27/2020 12:00 AM Ordering Location: [facility] DermPath Lab Received: 12/28/2020 01:28 PM [...] of a non-oriented ellipse of skin measuring [id number]. The epidermal surface is unremarkable. The margin [...] characteristic determined by the Dermatopathology Laboratory at [facility], directed by Dr. Martinez Serna. These tests need not be, and therefore are not, approved by the [place] Food and Drug Administration. The tests are used for clinical purposes. Billing Codes Specimen Charges Stain Charges 76678 1 12:48 PM CDT DERMATOPATHOLOGY LABORATORY Embedded Images 12:48 PM CDT DERMATOPATHOLOGY LABORATORY Pathology/Cytolog y TISSUE SPECIMEN FROM SKIN / Unknown 12/27/2020 12/28/2020 1:28 PM CDT us Grayson Cason MD LAB - PATHOLOGY/CYTOLOGY ORD ERABLES Final Result DERMATOPATHOLOGY LABORATORY [facility] - Department of Dermatology [address], [address] [phone] documented in this encounter Visit Diagnoses Not on filedocumented in this encounter Care Teams Personal Computer Network Engineer Relationship Specialty Start Date End Date Lv Rothman MD [address] [place] [address] PCP - General 04/14/12 documented as of this encounter
--- OUTSIDE RECORDS SUMMARY | 2024-10-26 00:47 | XMS_ITS | Encounter Summary ---
Author Organization [facility] Address [address] [place] [address] Care Team Providers Care Drapery Supervisor Name Role Phone Lv Rothman MD Primary Care Provider [phone] Encounter Details Date Type Department Care Team (Late st Contact Info) Description 10/22/2017 Lab Requisition [facility] DermPath Lab [address] [facility] [place] [phone] Grayson Cason MD [address] [place] [address] Social History Tobacco Use Types Packs/Day Years Used Date Smoking Tobacco: Never Assessed Sex and Gender Information Value Date Recorded Sex Assigned at Not on file 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 Gender Identity Not on file Sexual Orientation Not on file documented as of this encounter Plan of Treatment Not on file documented as of this encounter Procedures Procedure Name Priority Date/Time Associated Diagnosis Comments DERMATOPATHOLOGY Routine 10/21/2017 12:0 0 AM CDT documented in this encounter Results * DERMATOPATHOLOGY (10/21/2017 12:00 AM CDT) Case Report Dermatopathology Report Case: [id number] Authorizing Provider: Grayson Cason MD Collected: 10/21/2017 [...] KERATOSIS (L57.0) PRESENT AT MARGIN 6:12 PM [facility] DERMATOPATHOLOGY LABORATORY Clinical History A: R/O HAK, SCC, BCC. Check margins. B: R/O SCC. Check margins. 6:12 PM T DERMATOPATHOLOGY LABORATORY Gross Description Specimen: A: Received is one formalin filled container labeled with the patient's name and designated right helix rim. The specimen consists of a shave biopsy measuring [id number].The margin is inked green. Jar 0. Specimen: B: Received is one formalin filled container labeled with the patient's name and designated left upper lat back. The specimen consists of a shave biopsy measuring [id number].The margin is inked green. Jar 0. 6:12 PM [facility] DERMATOPATHOLOGY LABORATORY Microscopic Description Specimen A. SKIN, [...] the margin of the specimen. 6:12 PM [facility] DERMATOPATHOLOGY LABORATORY Disclaimer An external and internal positive and negative controls are appropriate for the histochemical, immunohistochemical and immunofluorescence stain(s) in this case (if any), except where stated explicitly. The performance characteristics of the stain(s) cited in this report were developed and its performance characteristic determined by the Dermatopathology Laboratory at [facility]. These tests need not be, and therefore are not, approved by the [place] Food and Drug Administration. The tests are used for clinical purposes. Billing Codes Specimen Charges Stain Charges 46810 36036 1 1 8 6:12 PM T DERMATOPATHOLOGY LABORATORY Embedded Images 04/12/201 8 6:12 PM CDT DERMATOPATHOLOGY LABORATORY Pathology/Cytology TISSUE SPECIMEN FROM SKIN / Unknown 10/21/2017 10/22/2017 10:35 AM CDT Miscellaneous samples (specimen) TISSUE SPECIMEN FROM SKIN / Unknown 10/21/2017 10/22/2017 10:35 AM CDT Grayson Cason MD LAB - PATHOLOGY/CYTOLOGY ORD ERABLES Final Result DERMATOPATHOLOGY LABORATORY [facility] - Department of Dermatology [address] [facility], 5th Floor Lab [address] [phone] documented in this encounter Visit Diagnoses Not on filedocumented in this encounter Care Teams Drapery Supervisor Relationship Specialty Start Date End Date Lv Rothman MD [address] [place] [phone] PCP - General 04/14/12 documented as of this encounter
--- OUTSIDE RECORDS SUMMARY | 2024-10-26 00:47 | XMS_ITS | Encounter Summary ---
Author Organization [facility] Address [address] [facility] [place] [address] Care Team Providers Care Director Of Research Name Role Phone Lv Rothman MD Primary Care Provider [phone] Encounter Details Date Type Department Care Team (Late st Contact Info) Description 02/10/2020 Lab Requisition [facility] DermPath Lab [address] [place] [phone] Grayson Cason MD [address] [place] [address] Social History Tobacco Use Types Packs/Day Years Used Date Smoking Tobacco: Never Assessed Sex and Gender Information Value Date Recorded Sex Assigned at Not on file 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 Gender Identity Not on file Sexual Orientation Not on file documented as of this encounter Plan of Treatment Not on file documented as of this encounter Procedures Procedure Name Priority Date/Time Associated Diagnosis Comments DERMATOPATHOLOGY Routine 02/09/2020 12:0 0 AM CDT documented in this encounter Results * DERMATOPATHOLOGY (02/09/2020 12:00 AM CDT) Case Report Dermatopathology Report Case: [id number] Authorizing Provider: Grayson Cason MD Collected: 02/09/2020 12:00 AM Ordering Location: [facility] DermPath Lab Received: 02/10/2020 11:51 [...] specimen consists of a shave biopsy measuring [id number]. Jar 0. 0 4:30 PM CDT DERMATOPATHOLOGY [...] characteristic determined by the Dermatopathology Laboratory at [facility], directed by Dr. Martinez Serna. These tests need not be, and therefore are not, approved by the [place] Food and Drug Administration. The tests are used for clinical purposes. Billing Codes Specimen Charges Stain Charges 50633 1 0 4:30 PM CDT DERMATOPATHOLOGY LABORATORY Embedded Images 0 4:30 PM CDT DERMATOPATHOLOGY LABORATORY Pathology/Cytolog y TISSUE SPECIMEN FROM SKIN / Unknown 02/09/2020 02/10/2020 11:51 AM CDT Grayson Cason MD LAB - PATHOLOGY/CYTOLOGY ORD ERABLES Final Result DERMATOPATHOLOGY LABORATORY [facility] - Department of Dermatology Frame [employer] [address] [place] [address], [facility] [phone] documented in this encounter Visit Diagnoses Not on filedocumented in this encounter Care Teams Director Of Research Relationship Specialty Start Date End Date Lv Rothman MD [address] [place] [address] PCP - General 04/14/12 documented as of this encounter
--- OUTSIDE RECORDS SUMMARY | 2024-10-26 00:47 | XMS_ITS | Clinical Summary ---
Author Organization [facility] Address [address], [facility] [address] [place] [address] Phone Care Team Providers Care Spare Person Name Role Phone Lv Rothman MD Primary Care Provider [phone] Lenin Carrasco DO Unavailable [phone] Medications allopurinol (ZYLOPRIM) 300 MG Tablet Take 200 mg by mouth daily. 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 on file Not on file Not on file Last Filed Vital Signs Vital Sign Reading Time Taken Comments Blood Pressure 128/68 09/21/2015 12:10 PM CLAIMS ACCOUNT MANAGER Pulse 66 09/13/2015 8:26 AM CLAIMS ACCOUNT MANAGER Temperature 37 C (98.6 F) 09/21/2015 12:10 PM CLAIMS ACCOUNT MANAGER Respiratory Rate 16 09/21/2015 12:10 PM CLAIMS ACCOUNT MANAGER Oxygen Saturation 94% 09/21/2015 12:10 PM CLAIMS ACCOUNT MANAGER Inhaled Oxygen Concentration - - Weight 88.5 kg (195 lb) 09/18/2015 3:00 PM CLAIMS ACCOUNT MANAGER Height 177.8 cm (5' 10 ) 09/18/2015 3:00 PM CLAIMS ACCOUNT MANAGER Body Mass Index 27.98 09/18/2015 3:00 PM CLAIMS ACCOUNT MANAGER Plan of Treatment Health Maintenance Due Date [...] patient's age to complete this topic Insurance [facility] MEDICARE Care Teams Spare Person Relationship Specialty Start Date End Date Lv Rothman MD [address] [place] [phone] PCP - General Family Medicine 09/13/15 Lenin Carrasco DO [address] [place] [address] Gastroenterology 09/13/15
--- OUTSIDE RECORDS SUMMARY | 2024-10-26 00:47 | XMS_ITS | Referral Summary ---
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
--- OUTSIDE RECORDS SUMMARY | 2024-10-26 00:47 | XMS_ITS | Clinical Summary ---
Author Organization [facility] Address [address] [place] [address] Care Team Providers Care Supervisor Sintering Plant Name Role Phone Lv Rothman MD Primary Care Provider [phone] Source Comments [facility],non-owned Affiliates and Associated Physician Practices is amultiple site organization consisting of ambulatory clinics and hospital sitesin [place], [place], [place]. This disclosure is being madepursuant to the Care Everywhere program and may not contain all information available regarding this patient. Last updated 18.[facility] Allergies No known active allergies Medications * Be aware that medications may not be up to date on this document. Alwaysverify current medications with the patient. 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 Gender Identity Not on file Sexual Orientation [...] patient's age to complete this topic Insurance MEDICARE [facility] MEDICARE ANTHEM SELF PAY NO INSURANCE Member Subscriber Plan / Payer (Ef fective for All Dates) Name:Bentley Campos Member ID:Not on file Relation to Subscriber:Not on file Name:BENTLEY CAMPOS Subscriber ID:Not on file (Home) Address: [address] [place] [phone] Payer ID:Not on file Group ID:Not on file Type:Self Pay Address: [place], [place] Care Teams Supervisor Sintering Plant Relationship Specialty Start Date End Date Lv Rothman MD [address] [place] [address] PCP - General 04/14/12
--- OUTSIDE RECORDS SUMMARY | 2024-10-26 00:47 | XMS_ITS | Clinical Summary ---
Author Organization [facility] Address [address] [place] [address] Phone Care Team Providers Care Certified Family Mediator Name Role Phone Chris Rey MD Primary [...] Risk Completed 03/21/2020, 03/27/2019, 02/11/[address] [facility] Care Teams Certified Family Mediator Relationship Specialty Start Date End Date Chris Rey MD [address] [place] [address] PCP - General Internal Medicine 02/17/19
--- OUTSIDE RECORDS SUMMARY | 2024-10-26 00:48 | XMS_ITS | Clinical Summary ---
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
--- OUTSIDE RECORDS SUMMARY | 2024-10-26 00:48 | XMS_ITS | Clinical Summary ---
Author Organization [facility] Address [address] [place] [address] Care Team Providers Care Cement Finisher Apprentice Name Role Phone Chris Rey MD Primary [...] Encounters Date Type Department Care Team Description 10/22/2024 Abstract [facility] Oncology and Hematology - [place] [address] [place] [address] Sushant Kirby MD 10/18/2024 Telephone [facility] Oncology and Hematology [facility] [address] [place] [address] Sushant Kirby MD Surgical Clearance 09/29/2024 External Device Data STL ABSTRACTION Provider, Abstract 09/24/2024 8:30 AM CDT Office Visit [facility] Oncology and Hematology [facility] [address] [place] [address] Sushant Kirby MD Hemochromatosis, unspecified hemochromatosis type (Primary Dx) 09/21/2024 Orders Only [facility] Oncology and Hematology [facility] [address] [place] [address] Sushant Kirby MD 09/20/2024 Orders Only [facility] Oncology and Hematology - [place] [address] [place] [address] Sushant Kirby MD 09/18/2024 External Device Data STL ABSTRACTION Provider, Abstract 09/17/2024 External Device Data STL ABSTRACTION Provider, Abstract 08/31/2024 External Device Data STL ABSTRACTION Provider, Abstract 08/04/2024 External Device Data STL ABSTRACTION Provider, Abstract 08/04/2024 External Device Data STL ABSTRACTION Provider, Abstract 07/30/2024 Abstract [facility] Oncology and Hematology [facility] [address] [place] [address] Sushant Kirby MD 07/30/2024 Refill [facility] Oncology and Hematology - [place] [address] [place] [address] Sushant Kirby MD from Last 3 Months [...] Description 04/08/2025 8:30 AM CDT Office Visit [facility] Oncology and Hematology - [place] [address] [facility] [address] [place] [address] [place] [address] [place] [address] [address] [place] [address] Health Maintenance Due Date Last Done Comments DTAP/TDAP/TD VACCINES (1 - Tdap) 1964 Traditional Medicare (ACO) A nnual Wellness Visit 1964 ZOSTER VACCINE (1 of 2) 1994 RSV VACCINE (60+ or ) (1 - 1-dose 75+ series) 2019 INFLUENZA VACCINE (#1) 2024 , 03/28/2021, 03/27/2019, Additional history exists COVID-19 Vaccine [...] PERCENT SATURATION (09/20/2024 10:52 AM CDT) Blood us Sushant Kirby MD CHEMISTRY ORDERABLES Final Resu lt from Last 3 Months Insurance MEDICARE PART A AND B [facility] MEDICARE PART A AND B BCBS SUPP Care Teams Cement Finisher Apprentice Relationship Specialty Start Date End Date Chris Rey MD [address] [place] [address] PCP - General Family Practice 03/18/17
[2024-10-26] MEDS: LACTATED RINGERS 1,000 ML 30 ML IV CONT (06:20)
[2024-10-26 06:39] LABS: INR 0.9; Prothrombin Time 12.9 Seconds (11.1-14.7)
[2024-10-26 06:40] LABS: Partial Thromboplastin Time 31.9 Seconds (22.3-36.8)
--- NOTE | 2024-10-26 06:57 | WPDANESEPPF ---
Anes - Initial Pre Proc Eval Procedure: Operation Date: 10/26/24 07:30 Proposed Procedures p Cystoscopy Bladder Biopsy, - Artem Cortez MD s Transurethral Resection Bladder Tumor - Artem Cortez MD Date/Time: 10/26/24 06:57 Surgeon: Artem Cortez MD Pre Op Diagnosis: bladder cancer Patient Data Age: 79 Gender: M Height: 1.78 m Weight: 84.3 kg Last Vital Signs Temp 36.6 C 10/26/24 06:05 Pulse 73 10/26/24 06:05 Resp 16 10/26/24 06:05 BP 137/73 10/26/24 06:05 Pulse Ox 98 10/26/24 06:05 O2 Del Method Room Air 10/26/24 06:05 Allergies Allergy/AdvReac Type Severity Reaction Status Date / Time No Known Allergies Allergy Verified 10/26/24 06:25 Home Medications ?Medication ?Instructions ?Recorded ?Confirmed ?Type apixaban 5 mg tablet (Eliquis) 5 mg PO BID #20 tabs 03/13/21 10/26/24 Rx cholecalciferol (vitamin D3) 50 50 mcg PO BID 03/13/21 10/26/24 History mcg (2,000 unit) capsule magnesium 250 mg tablet 250 mg PO BID 03/13/21 10/26/24 History lisinopril 40 mg tablet 40 mg PO DAILY #90 tabs 03/09/24 10/26/24 Rx mecobalamin (vitamin B12) 1,000 1,000 mcg sublingual 2XW 04/01/24 10/26/24 History mcg disintegrating tablet,sublingual empagliflozin 10 mg tablet 10 mg PO DAILY #30 tabs 05/03/24 10/26/24 Rx (Jardiance) oxybutynin chloride 5 mg tablet 5 mg PO BID PRN bladder spasms #30 08/10/24 10/18/24 Rx tabs allopurinol 300 mg tablet 300 mg PO DAILY 10/07/24 10/26/24 History hydralazine 25 mg tablet 25 mg PO BID 10/07/24 10/26/24 History Laboratory Tests 10/26/24 06:23 PT 12.9 Seconds (11.1-14.7) INR 0.9 APTT 31.9 Seconds (22.3-36.8) Patient hx anesthesia problems: none Family hx anesthesia problems: none Results Review: All pre-operative results and documents have been reviewed as part of the pre-operative evaluation. 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 No further screening recommended due to his age Hypertension Pneumonia 1960 Rib fracture #8 - 1992 Kidney congenitally absent, left Hx of venous thromboembolic disease pulmonary embolism and DVT in bilateral lower extremities in February 2017. 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) Pre-diabetes Essential (primary) hypertension Hx of pancreatitis Idiopathic gout Dyslipidemia Hemochromatosis Surgical History Surgical History H/O transurethral resection of bladder tumor (TURBT) x2 - 04/06, 08/07 Status post biventricular cardiac pacemaker insertion (~05/2023) History of cholecystectomy 06/2014 History of rectal sphincterotomy biliary 03/2015 Family History Family History Sibling Hypertension Father Family history of cardiac disorder Social History Social History Smoking status: Never smoker Second hand tobacco smoke exposure: No Alcohol intake: never Substance use: never Substance use type: does not use Do You Feel Safe in your Home?: Yes Lack of Transportation: No Lack of Food: Never True Current Housing: I Have Housing Concerned About Future Housing: No Difficulty Paying Gas/Electric Bills: No Difficulty Paying for Meds: No Currently Unemployed: No Education: Bachelor's Degree Difficulty w/ Childcare or Family Care: No Living arrangements: with family Additional living arrangements comments: Occupation/Education: occupation Additional occupation/education comments: [employer] Gender identity (if verbalized by the patient): Male Sexual Orientation (if Verbalized by the Patient): Straight or Heterosexual Spiritual care concerns: No Anes - Eval Final PreProcedure Day of Procedure 10/26/24 06:57 Patient weight: overweight Heart: regular rate and rhythm Lungs: clear to auscultation Airway: Mallampati scale class II Neurological: alert and oriented Last oral intake: >/= 8 hours ASA classification: III Emergent: no Anesthetic plan: proceed Anesthesia type and monitoring: general LMA and standard monitoring Results Review: All pre-operative results and documents have been reviewed as part of the pre-operative evaluation. Informed Consent: The patient's anesthetic plan and its attendant risks and benefits were discussed with the patient/family/POA. Questions were solicited and answers provided to the satisfaction of the patient/family/POA.
--- NOTE | 2024-10-26 07:12 | WPDHPUPDATE1 ---
History and Physical Update Update Date/Time: 10/26/24 07:12 History and Physical has been reviewed, including an updated exam of the patient. There are NO changes in the patient's condition. Risks, benefits, and alternatives have been discussed and questions answered. Patient agrees to proceed with procedure.
[2024-10-26] MEDS: LIDOCAINE 2% GEL UROJET 10 ML PKG MUCOUS MEM (07:26)
[2024-10-26] MEDS: ceFAZolin 2 GM/D5W 50 ML 2 GM/50 ML BAG IVPB (07:26)
--- NOTE | 2024-10-26 07:57 | P.OP_ITS ---
Procedure Note - Detailed Date of Procedure 10/26/24 Pre-op Diagnosis bladder cancer Post-op Diagnosis Same Procedure Performed Cystoscopy with transurethral resection of bladder tumor medium size less than 2.5 cm Surgeon Artem Cortez MD Anesthesia General Description of Procedure Patient was taken to the operative suite correctly identified. Once anesthesia was obtained was placed in dorsal lithotomy position and prepped draped usual sterile fashion. Twenty-four Cambodian resectoscope sheath was inserted the bladder. It was noted that he had some little papillary lesions at the bladder neck which were fulgurated. I then found 2 small lesions approximately 7 8 mm along the right bladder neck which were resected. Another lesion was noted near the dome measuring less than a cm. And then I went ahead and resected the prior resection site which had poorly healed on the left floor posterior wall. This area was at least 2 cm to 2.5 cm. I fulgurated the base. There was good hemostasis at termination of procedure. 2% viscous lidocaine was inserted into urethra patient is taken recovery stable condition. He will call for path results in 1 week. This completes dictation. Please send a copy of op note to my office Estimated Blood Loss 0 Packing No Pathology Yes Complications No immediate complications Condition Stable Disposition PACU
[2024-10-26 08:14] LABS: Glucose Point of Care 111 mg/dl (65-105)
== END 2024-10-26 09:35 | disposition home or self-care (01) ==
PROVIDERS: PCP Family Medicine; Visit Provider Urology
PROC: 0TBB8ZX Excision of Bladder, Via Natural or Artificial Opening Endoscopic, Diagnostic (ICD-10-PCS; CPT 52204; principal; 2024-10-26 07:30)
PROC: 0TBB8ZZ Excision of Bladder, Via Natural or Artificial Opening Endoscopic (ICD-10-PCS; CPT 52235; 2024-10-26 07:30)
DX: C67.8 Malignant neoplasm of overlapping sites of bladder (principal); N30.00 Acute cystitis without hematuria; R31.0 Gross hematuria; E78.5 Hyperlipidemia, unspecified; E11.22 Type 2 diabetes mellitus with diabetic chronic kidney disease; I12.9 Hypertensive chronic kidney disease with stage 1 through stage 4 chronic kidney disease, or unspecified chronic kidney disease; N18.32 Chronic kidney disease, stage 3b; I87.2 Venous insufficiency (chronic) (peripheral); N28.9 Disorder of kidney and ureter, unspecified; E83.119 Hemochromatosis, unspecified; Z79.01 Long term (current) use of anticoagulants; Z79.84 Long term (current) use of oral hypoglycemic drugs; Z98.890 Other specified postprocedural states; Z90.49 Acquired absence of other specified parts of digestive tract; Z95.0 Presence of cardiac pacemaker; Z90.5 Acquired absence of kidney; Z86.711 Personal history of pulmonary embolism; Z86.0100 Personal history of colon polyps, unspecified; Z86.718 Personal history of other venous thrombosis and embolism; Z82.49 Family history of ischemic heart disease and other diseases of the circulatory system
CPT/HCPCS: 52235; 36415; 82948; 85610; 85730; 88305; J0690; J1100; J2003; J2405; J2704; J3010; J7120

== ENCOUNTER 2025-04-04 08:57 | Outpatient (CLI) | payer MEDICARE, SELFPAY ==
[2025-04-04 09:15] LABS: Hematocrit 41.4 % (42.0-52.0); Hemoglobin 13.8 g/dL (14.0-18.0); Mean Corpuscular HGB Conc 33.3 g/dl (32-36); Mean Corpuscular Hemoglobin 35.0 pg (26-34); Mean Corpuscular Volume 105.1 fl (80-100); Platelet Count Result 178 k/mm3 (150-375); Red Blood Count 3.94 M/mm3 (4.6-6.20); White Blood Count 8.1 K/mm3 (4.5-10.0)
--- OUTSIDE RECORDS SUMMARY | 2025-04-04 09:48 | XMS_ITS | Clinical Summary ---
Author Organization [facility] Address [address], [address] [address] Phone Care Team Providers Care Agricultural Plow Operator Name Role Phone Lv Rothman MD Primary Care Provider Lenin Carrasco DO Unavailable [phone] Medications allopurinol (ZYLOPRIM) 300 MG Tablet Take 200 mg by mouth daily. 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 Not on file Not on file Last Filed Vital Signs Vital Sign Reading Time Taken Comments Blood Pressure 128/68 09/21/2015 12:10 PM CARPENTER HELPER [employer] Pulse 66 09/13/2015 8:26 AM [employer]PENTER [employer] Temperature 37 C (98.6 F) 09/21/2015 12:10 PM [employer]PENTER [employer] Respiratory Rate 16 09/21/2015 12:10 PM [employer]PENTER [employer] Oxygen Saturation 94% 09/21/2015 12:10 PM CARPENTER [employer] Inhaled Oxygen Concentration - - Weight 88.5 kg (195 lb) 09/18/2015 3:00 PM [employer] Height 177.8 cm (5' 10) 09/18/2015 3:00 PM CARPENTER [employer] Body Mass Index 27.98 09/18/2015 3:00 PM CARPENTER [employer] Plan of Treatment Health Maintenance Due Date Last Done Comments Hepatitis C Virus (HCV) Screening 1945 TdaP Immunization 1945 Zoster Immunization (1 of 2) 1994 Respiratory Syncytial Virus (RSV) Immunization (Adult) (1 - 1-dose 75+ series) 2019 Influenza Immunization (#1) 03/14/202502/2020, 03/27/2019, 04/26/2018, Additional history exists SARS-COV-2 Immunization ( season) 2025 05/10/2021, 09/18/2020 Pneumococcal Immunization (50+ years) Completed 03/21/2020, 03/27/2019 Pneumococcal Immunization Combined Discontinued 03/21/2020, 03/27/2019 Hepatitis B Immunization Aged Out No longer eligible based on patient's age to complete this topic Human Papillomavirus (HPV) Immunization Aged Out No longer eligible based on patient's age to complete this topic Meningococcal Immunization (ACWY) Aged Out No longer eligible based on patient's age to complete this topic Rotavirus Immunization Aged Out No lo nger eligible based on patient's age to complete this topic Insurance [facility] MEDICARE Care Teams Agricultural Plow Operator Relationship Specialty Start Date End Date Lv Rothman MD [address] [place] [address] PCP - General Family Medicine 09/13/15 Lenin Carrasco DO [address] [place] [address] Gastroenterology 09/13/15
--- OUTSIDE RECORDS SUMMARY | 2025-04-04 09:48 | XMS_ITS | Clinical Summary ---
Author Organization [facility] Address [address] [place] [address] Care Team Providers Care Laundry Agent Name Role Phone Lv Rothman MD Primary Care Provider [phone] Source Comments [facility],non-owned Affiliates and Associated Physician Practices is amultiple site organization consisting of ambulatory clinics and hospital sitesin [place], [place], [place] and [place]. This disclosure is being madepursuant to the Care Everywhere program and may not contain all information available regarding this patient. 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..] age to complete this topic Insurance MEDICARE ANTHEM ANTHEM MEDICARE ANTHEM SELF PAY NO INSURANCE Member Subscriber Plan / Payer (Ef fective for All Dates) Name:Bentley Campos Member ID:Not on file Relation to Subscriber:Not on file Name:BENTLEY CAMPOS Subscriber ID:Not on file (Home) Address: [address] [place] [id number] Payer ID:Not on file Group ID:Not on file Type:Self Pay Address: [place], [place] Care Teams Laundry Agent Relationship Specialty Start Date End Date Lv Rothman MD [address] [place] [address] PCP - General 04/14/12
--- OUTSIDE RECORDS SUMMARY | 2025-04-04 09:48 | XMS_ITS | Encounter Summary ---
Author Organization [facility] Address [address] [place] [address] Care Team Providers Care Local Coordinator Name Role Phone Lv Rothman MD Primary Care Provider [phone] Encounter Details Date Type Department Care Team (Late st Contact Info) Description 10/22/2017 Lab Requisition [facility] Care DermPath Lab [address] [place] [id number] Grayson Cason MD [address] [place] [address] Social History Tobacco Use Types Packs/Day Years Used Date Smoking Tobacco: Never Assessed Sex and Gender Information Value Date Recorded Sex Assigned at Not on file 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 Gender Identity Not on file Sexual Orientation Not on file documented as of this encounter Plan of Treatment Not on file documented as of this encounter Procedures Procedure Name Priority Date/Time Associated Diagnosis Comments DERMATOPATHOLOGY Routine 10/21/2017 12:0 0 AM CDT documented in this encounter Results * DERMATOPATHOLOGY (10/21/2017 12:00 AM CDT) Case Report Dermatopathology Report Case: [id number] Authorizing Provider: Grayson Cason MD Collected: 10/21/2017 [...] (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 Check margins. B: R/O SCC. Check margins. 8 6:12 PM CDT DERMATOPATHOLOGY LABORATORY Gross Description Specimen: A: Received is one formalin filled container labeled with the patient's name and designated right helix rim. The specimen consists of a shave biopsy measuring [id number].The margin is inked green. Jar 0. Specimen: B: Received is one formalin filled container labeled with the patient's name and designated left upper lat back. The specimen consists of a shave biopsy measuring [id number].The margin is inked green. Jar 0. 6:12 [...] margin of the specimen. 8 6:12 PM T DERMATOPATHOLOGY LABORATORY Disclaimer An external and internal positive and negative controls are appropriate for the histochemical, immunohistochemical and immunofluorescence stain(s) in this case (if any), except where stated explicitly. The performance characteristics of the stain(s) cited in this report were developed and its performance characteristic determined by the Dermatopathology Laboratory at [facility]. These tests need not be, and therefore are not, approved by the [place] Food and Drug Administration. The tests are used for clinical purposes. Billing Codes Specimen Charges Stain Charges 48181 52191 1 1 8 6:12 PM CDT DERMATOPATHOLOGY LABORATORY Embedded Images 8 6:12 PM CDT DERMATOPATHOLOGY LABORATORY Pathology/Cytology TISSUE SPECIMEN FROM SKIN / Unknown 10/21/2017 10/22/2017 10:35 AM CDT Miscellaneous samples (specimen) TISSUE SPECIMEN FROM SKIN / Unknown 10/21/2017 10/22/2017 10:35 AM CDT Grayson Cason MD LAB - PATHOLOGY/CYTOLOGY ORD ERABLES Final Result DERMATOPATHOLOGY LABORATORY [facility] - Department of Dermatology [address] [facility], 5th Floor Lab [address] [phone] documented in this encounter Visit Diagnoses Not on filedocumented in this encounter Care Teams Local Coordinator Relationship Specialty Start Date End Date Lv Rothman MD [address] [place] [phone] PCP - General 04/14/12 documented as of this encounter
--- OUTSIDE RECORDS SUMMARY | 2025-04-04 09:48 | XMS_ITS | Clinical Summary ---
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 Gender Identity Not on file Sexual Orientation [...] A M CDT Height 177.8 cm (5' 10) 05/07/2023 9:28 AM CDT Body Mass Index 28.61 05/07/2023 9:28 AM CDT Plan of Treatment Health Maintenance Due Date Last Done Comments Depression Screening 1944 Fall Risk Assessment 1944 Hepatitis B Screening 1962 Well Visit 65+ 2009 Covid-19 Vaccine (2024-2 6 season) 2025 04/26/2023, 04/24/2022, 10/29/2021, Additional history exists Influenza Vaccine (#1) 2025 , 04/10/2022, 04/06/2022, Additional history exists DTaP/Tdap/Td Vaccine (2 - Td or Tdap) 03/27/2033 03/27/2023 Pneumococcal vaccine 65+ Completed 020, 03/27/2019, 02/11/2014 Zoster Vaccine Completed 10/29/2021, 08/03/2021 Insurance MEDICARE [facility] Care Teams Athletic Monitor Relationship Specialty Start Date End Date Sukumar Sandoval DO [address] [place] [address] PCP - General Internal Medicine 05/07/23
--- OUTSIDE RECORDS SUMMARY | 2025-04-04 09:48 | XMS_ITS | Encounter Summary ---
Author Organization [facility] Address [address] [facility] [place] [address] Care Team Providers Care Associate Professor Of Forestry Name Role Phone Lv Rothman MD Primary Care Provider [phone] Encounter Details Date Type Department Care Team (Late st Contact Info) Description 12/28/2020 Lab Requisition [facility] DermPath Lab [address] [place] [phone] Grayson Cason MD [address] [place] [address] Social History Tobacco Use Types Packs/Day Years Used Date Smoking Tobacco: Never Smokeless Tobacco: Never Alcohol Use Standard Drinks/Week Comments Not Currently 0 (1 standard drink = 0.6 oz pur e alcohol) Sex and Gender Information Value Date Recorded Sex Assigned at Not on file Legal Sex Male 6:23 PM CATH LAB Gender Identity Not on file Sexual Orientation Not on file documented as of this encounter Plan of Treatment Not on file documented as of this encounter Procedures Procedure Name Priority Date/Time Associated Diagnosis Comments DERMATOPATHOLOGY Routine 12/27/2020 12:0 0 AM CDT documented in this encounter Results * DERMATOPATHOLOGY (12/27/2020 12:00 AM CDT) Case Report Dermatopathology Report Case: [id number] Authorizing Provider: Grayson Cason MD Collected: 12/27/2020 12:00 AM Ordering Location: [facility] DermPath Lab Received: 12/28/2020 01:28 PM Pathologist: Evgeny Serna MD Specimen: Skin, mid back 12:48 PM CDT DERMATOPATHOLOGY LABORATORY Final Diagnosis Specimen A. SKIN, mid back: EPIDERMOID CYST WITH EVIDENCE OF RUPTURE (L72.0) NOT PRESENT AT MARGIN 12:48 PM CDT DERMATOPATHOLOGY LABORATORY at 1248 CDT Clinical History R/O ruptured cyst. 12:48 PM CDT DERMATOPATHOLOGY LABORATORY Gross Description Specimen A: Received is one formalin filled container labeled with the patient's name and designated mid back. The specimen consists of a non-oriented ellipse of skin measuring [id number]. The epidermal surface is unremarkable. The margin [...] characteristic determined by the Dermatopathology Laboratory at [facility], directed by Dr. Martinez Serna. These tests need not be, and therefore are not, approved by the [place] Food and Drug Administration. The tests are used for clinical purposes. Billing Codes Specimen Charges Stain Charges 52069 1 12:48 PM CDT DERMATOPATHOLOGY LABORATORY Embedded Images 12:48 PM CDT DERMATOPATHOLOGY LABORATORY Pathology/Cytolog y TISSUE SPECIMEN FROM SKIN / Unknown 12/27/2020 12/28/2020 1:28 PM CDT us Grayson Cason MD LAB - PATHOLOGY/CYTOLOGY ORD ERABLES Final Result DERMATOPATHOLOGY LABORATORY [facility] - Department of Dermatology [address], [address] [phone] documented in this encounter Visit Diagnoses Not on filedocumented in this encounter Care Teams Associate Professor Of Forestry Relationship Specialty Start Date End Date Lv Rothman MD [address] [place] [address] PCP - General 04/14/12 documented as of this encounter
--- OUTSIDE RECORDS SUMMARY | 2025-04-04 09:48 | XMS_ITS | Clinical Summary ---
Author Organization [facility] Address [address] [place] [address] Phone Care Team Providers Care Storm Door Maker Name Role Phone Chris Rey MD Primary [...] 8:55 AM CDT Height 177.8 cm (5' 10) 04/17/2022 8:55 AM CDT Body Mass Index 27.69 04/17/2022 8:55 AM CDT Plan of Treatment Health Maintenance Due Date Last Done Comments Influenza Vaccine (#1) 2025 , 03/28/2021, 03/27/2019, Additional history exists Pneumococcal PPSV23/PCV13 65 + Years / Low and Medium Risk Completed 03/21/2020, 03/27/2019, 02/11/2014 Insurance MEDICARE [facility] Care Teams Storm Door Maker Relationship Specialty Start Date End Date Chris Rey MD [address] [place] [address] PCP - General Internal Medicine 02/17/19
--- OUTSIDE RECORDS SUMMARY | 2025-04-04 09:48 | XMS_ITS | Encounter Summary ---
Author Organization [facility] Address [address] [place] [address] Care Team Providers Care Bracelet Form Coverer Name Role Phone Lv Rothman MD Primary Care Provider [phone] Encounter Details Date Type Department Care Team (Late st Contact Info) Description 02/10/2020 Lab Requisition [facility] DermPath Lab [address] [place] [phone] Grayson Cason MD [address] [place] [address] Social History Tobacco Use Types Packs/Day Years Used Date Smoking Tobacco: Never Assessed Sex and Gender Information Value Date Recorded Sex Assigned at Not on file 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 Gender Identity Not on file Sexual Orientation Not on file documented as of this encounter Plan of Treatment Not on file documented as of this encounter Procedures Procedure Name Priority Date/Time Associated Diagnosis Comments DERMATOPATHOLOGY Routine 02/09/2020 12:0 0 AM CDT documented in this encounter Results * DERMATOPATHOLOGY (02/09/2020 12:00 AM CDT) Case Report Dermatopathology Report Case: [id number] Authorizing Provider: Grayson Cason MD Collected: 02/09/2020 12:00 AM Ordering Location: [facility] DermPath Lab Received: 02/10/2020 11:51 AM Pathologist: Selene Marcus MD Specimen: Skin, left zygoma 0 4:30 PM CDT DERMATOPATHOLOGY LABORATORY Final Diagnosis Specimen A. 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 0 4:30 PM CDT DERMATOPATHOLOGY LABORATORY Gross Description Specimen A: Received is one formalin filled container labeled with the patient's name and designated left zygoma. The specimen consists of a shave biopsy measuring [id number]. Jar 0. 0 4:30 PM CDT DERMATOPATHOLOGY [...] determined by the Dermatopathology Laboratory at [facility], directed by Dr. Martinez Serna. These tests need not be, and therefore are not, approved by the [place] Food and Drug Administration. The tests are used for clinical purposes. Billing Codes Specimen Charges Stain Charges 42047 1 0 4:30 PM CDT DERMATOPATHOLOGY LABORATORY Embedded Images 0 4:30 PM CDT DERMATOPATHOLOGY LABORATORY Pathology/Cytolog y TISSUE SPECIMEN FROM SKIN / Unknown 02/09/2020 02/10/2020 11:51 AM CDT Grayson Cason MD LAB - PATHOLOGY/CYTOLOGY ORD ERABLES Final Result DERMATOPATHOLOGY LABORATORY [facility] - Department of Dermatology [employer] [place] [address], [facility] [phone] documented in this encounter Visit Diagnoses Not on filedocumented in this encounter Care Teams Bracelet Form Coverer Relationship Specialty Start Date End Date Lv Rothman MD [address] [place] [address] PCP - General 04/14/12 documented as of this encounter
--- OUTSIDE RECORDS SUMMARY | 2025-04-04 09:48 | XMS_ITS | Clinical Summary ---
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 Vitamin B12 deficiency (non anemic) 03/18/2017 Hypercoagulable state 03/18/2017 Resolved Problems Problem Noted Date Diagnosed Date Resolved Date Iron deficiency anemia 03/18/201705/26 Encounters Date Type Department Care Team Description 03/29/2025 External Device Data ST[facility] ABSTRACTION Provider, Abstract 03/29/2025 External Device Data [facility] ABSTRACTION Provider, Abstract 03/01/2025 External Device Data [facility] ABSTRACTION Provider, Abstract 03/01/2025 External Device Data ST[facility] ABSTRACTION Provider, Abstract 02/28/2025 Telephone [facility] Oncology [facility] Hematology [facility] [address] [place] [address] Sushant Kirby MD Surgical Clearance 02/16/2025 External Device Data STL ABSTRACTION Provider, Abstract 02/15/2025 External Device Data ST[facility] ABSTRACTION Provider, Abstract 02/03/2025 Refill [facility] Oncology and Hematology [facility] [address] [place] [address] Sushant Kirby MD Hypercoagulable state; Acute deep vein thrombosis (DVT) of proximal vein of lower extremity, unspecified laterality ([facility]/HCC) 01/26/2025 External Device Data STL ABSTRACTION Provider, Abstract 01/25/2025 External Device Data STL ABSTRACTION Provider, Abstract from Last 3 Months Family History Medical [...] 8:35 AM CDT Height 177.8 cm (5' 10) 11/14/2021 8:59 AM CDT Body Mass Index 26.98 11/14/2021 8:59 AM CDT Plan of Treatment Upcoming Encounters Date Type Department Care Team (Late st Contact Info) Description 04/08/2025 8:30 AM CDT Office Visit [facility] Oncology and Hematology - [place] [address] [facility] [address] [place] [address] Sushant Kirby MD [address] [facility] [address] [place] [address] Health Maintenance Due Date Last Done Comments DTAP/TDAP/TD VACCINES (1 - Tdap) 1964 Traditional Medicare (ACO) A nnual Wellness Visit 1964 ZOSTER VACCINE (1 of 2) 1994 RSV VACCINE (60+ or ) (1 - 1-dose 75+ series) 2019 INFLUENZA VACCINE (#1) 2025 2, 03/28/2021, 03/27/2019, Additional history exists COVID-19 Vaccine (2 - 2024-2 6 season) 2025 09/18/2020 PNEUMOCOCCAL VACCINE 50+ YEARS Completed 0 03/21/2020, 03/27/2019, 02/11/2014 COLORECTAL SCREENING Discontinued 06/20/2021, 08/16/19 15 Colorectal Cancer Screening Discontinued FIT-DNA Q 3 years Discontinued FIT/FOBT Q 1 year Discontinued Flex Sig/CT Colonography Q 5 years Discontinued Insurance MEDICARE PART A AND B BCBS SUPP MEDICARE PART A AND B BCBS SUPP Care Teams Educational/Development Assistant Relationship Specialty Start Date End Date Chris Rey MD [address] [place] [address] PCP - General Family Practice 03/18/17
[2025-04-04 09:54] LABS: Anion Gap 8 mmol/L (4-12); Blood Urea Nitrogen 51 mg/dL (9-20); Calcium 9.5 mg/dL (8.4-10.2); Carbon Dioxide 28 mmol/L (22-30); Chloride 104 mmol/L (98-107); Estimated Glomerular Filt Rate 21; Glucose 119 mg/dL (65-110); Potassium 4.9 mmol/L (3.4-5.0); Sodium 140 mmol/L (137-145)
[2025-04-04 10:21] LABS: Iron 165 ug/dL (49-181)
[2025-04-04 10:30] LABS: Percent Iron Saturation 77 % (20-50)
[2025-04-04 10:57] LABS: Ferritin 160.00 ng/mL (11.1-264)
== END 2025-04-04 08:58 | disposition home or self-care (01) ==
LOC: ANHLAB 09:01
PROVIDERS: PCP Family Medicine; Visit Provider Internal Medicine Hematology & Oncology
DX: E83.119 Hemochromatosis, unspecified (principal)
CPT/HCPCS: 36415; 80048; 82728; 83540; 83550; 85027

== ENCOUNTER 2025-04-25 08:28 | Outpatient (CLI) | payer MEDICARE, SELFPAY ==
--- OUTSIDE RECORDS SUMMARY | 2025-04-25 08:38 | XMS_ITS | Clinical Summary ---
Author Organization [facility] Address [address], [address] [address] Phone Care Team Providers Care Teacher Learning Disabled Name Role Phone Lv Rothman MD Primary Care Provider [phone] Lenin Carrasco DO Unavailable [phone] Medications allopurinol (ZYLOPRIM) 300 MG Tablet Take 200 mg by mouth daily. 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 on file Not on file Not on file Last Filed Vital Signs Vital Sign Reading Time Taken Comments Blood Pressure 128/68 09/21/2015 12:10 PM RN PROVIDER RELATIONS Pulse 66 09/13/2015 8:26 AM RN PROVIDER RELATIONS Temperature 37 C (98.6 F) 09/21/2015 12:10 PM RN PROVIDER RELATIONS Respiratory Rate 16 09/21/2015 12:10 PM RN PROVIDER RELATIONS Oxygen Saturation 94% 09/21/2015 12:10 PM RN PROVIDER RELATIONS Inhaled Oxygen Concentration - - Weight 88.5 kg (195 lb) 09/18/2015 3:00 PM RN PROVIDER RELATIONS Height 177.8 cm (5' 10) 09/18/2015 3:00 PM RN PROVIDER RELATIONS Body Mass Index 27.98 09/18/2015 3:00 PM RN PROVIDER RELATIONS Plan of Treatment Health Maintenance Due Date Last Done Comments Hepatitis C Virus (HCV) Screening 1945 TdaP Immunization 1945 Zoster Immunization (1 of 2) 1994 Medicare Initial AWV [id number] 06/13/2010 Respiratory Syncytial Virus (RSV) Immunization (Adult) (1 - 1-dose 75+ series) 2019 Influenza Immunization (#1) 03/14/20250 02/2020, 03/27/2019, 04/26/2018, Additional history exists SARS-COV-2 Immunization [...] patient's age to complete this topic Insurance [facility] MEDICARE Care Teams Teacher Learning Disabled Relationship Specialty Start Date End Date Lv Rothman MD [address] [place] [address] PCP - General Family Medicine 09/13/15 Lenin Carrasco DO [address] [place] [address] Gastroenterology 09/13/15
--- OUTSIDE RECORDS SUMMARY | 2025-04-25 08:38 | XMS_ITS | Clinical Summary ---
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
--- OUTSIDE RECORDS SUMMARY | 2025-04-25 08:39 | XMS_ITS | Clinical Summary ---
Author Organization [facility] Address [address] [place] [address] Care Team Providers Care Sanitation Laborer Name Role Phone Lv Rothman MD Primary Care Provider [phone] Source Comments [facility],non-owned Affiliates and Associated Physician Practices is amultiple site organization consisting of ambulatory clinics and hospital sitesin [place], [place], [place] and [place]. This disclosure is being madepursuant to the Care Everywhere program and may not contain all information available regarding this patient. 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
--- OUTSIDE RECORDS SUMMARY | 2025-04-25 08:39 | XMS_ITS | Encounter Summary ---
Author Organization [facility] Address [address] [place] [address] Care Team Providers Care Nicu Rn Name Role Phone Lv Rothman MD Primary Care Provider [phone] Encounter Details Date Type Department Care Team (Late st Contact Info) Description 10/22/2017 Lab Requisition [facility] Care DermPath Lab [address] [place] [phone] Grayson Cason MD [address] [place] [address] Social History Tobacco Use Types Packs/Day Years Used Date Smoking Tobacco: Never Assessed Sex and Gender Information Value Date Recorded Sex Assigned at Not on file 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 Jar 0. Specimen: B: Received is one formalin filled container labeled with the patient's name and designated left upper lat back. The specimen consists of a shave biopsy measuring [id number].The margin is inked green. Jar 0. 6:12 [...] determined by the Dermatopathology Laboratory at [facility]. These tests need not be, and therefore are not, approved by the [place] Food and Drug Administration. The tests are used for clinical purposes. Billing Codes Specimen Charges Stain Charges 39196 44349 1 1 8 6:12 PM CDT DERMATOPATHOLOGY LABORATORY Embedded Images 8 6:12 PM CDT DERMATOPATHOLOGY LABORATORY Pathology/Cytology TISSUE SPECIMEN FROM SKIN / Unknown 10/21/2017 10/22/2017 10:35 AM CDT Miscellaneous samples (specimen) TISSUE SPECIMEN FROM SKIN / Unknown 10/21/2017 10/22/2017 10:35 AM CDT Grayson Cason MD LAB - PATHOLOGY/CYTOLOGY ORD ERABLES Final Result DERMATOPATHOLOGY LABORATORY [facility] - Department of Dermatology [address], [address]th Floor Lab [address] [phone] documented in this encounter Visit Diagnoses Not on filedocumented in this encounter Care Teams Nicu Rn Relationship Specialty Start Date End Date Lv Rothman MD [address] [place] [phone] PCP - General 04/14/12 documented as of this encounter
--- OUTSIDE RECORDS SUMMARY | 2025-04-25 08:39 | XMS_ITS | Encounter Summary ---
Author Organization [facility] Address [address] [place] [address] Care Team Providers Care Foreign Student Adviser Name Role Phone Lv Rothman MD Primary Care Provider [phone] Encounter Details Date Type Department Care Team (Late st Contact Info) Description 02/10/2020 Lab Requisition [facility] DermPath Lab [address] [place] [phone] Grayson Cason MD [address] [place] [address] Social History Tobacco Use Types Packs/Day Years Used Date Smoking Tobacco: Never Assessed Sex and Gender Information Value Date Recorded Sex Assigned at Not on file 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 Gender Identity Not on file Sexual Orientation Not on file documented as of this encounter Plan of Treatment Not on file documented as of this encounter Procedures Procedure Name Priority Date/Time Associated Diagnosis Comments DERMATOPATHOLOGY Routine 02/09/2020 12:0 0 AM CDT documented in this encounter Results * DERMATOPATHOLOGY (02/09/2020 12:00 AM CDT) Case Report Dermatopathology Report Case: [id number] Authorizing Provider: Grayson Cason MD Collected: 02/09/2020 12:00 AM Ordering Location: [facility] DermPath Lab Received: 02/10/2020 11:51 AM [...] specimen consists of a shave biopsy measuring [id number]. Jar 0. 0 4:30 PM CDT DERMATOPATHOLOGY [...] characteristic determined by the Dermatopathology Laboratory at [facility], directed by Dr. Martinez Serna. These tests need not be, and therefore are not, approved by the [place] Food and Drug Administration. The tests are used for clinical purposes. Billing Codes Specimen Charges Stain Charges 49707 1 0 4:30 PM CDT DERMATOPATHOLOGY LABORATORY Embedded Images 0 4:30 PM CDT DERMATOPATHOLOGY LABORATORY Pathology/Cytolog y TISSUE SPECIMEN FROM SKIN / Unknown 02/09/2020 02/10/2020 11:51 AM CDT Grayson Cason MD LAB - PATHOLOGY/CYTOLOGY ORD ERABLES Final Result DERMATOPATHOLOGY LABORATORY [facility] - Department of Dermatology [employer] [place] [address], [facility] [phone] documented in this encounter Visit Diagnoses Not on filedocumented in this encounter Care Teams Foreign Student Adviser Relationship Specialty Start Date End Date Lv Rothman MD [address] [place] [address] PCP - General 04/14/12 documented as of this encounter
--- OUTSIDE RECORDS SUMMARY | 2025-04-25 08:39 | XMS_ITS | Clinical Summary ---
Author Organization [facility] Address [address] [place] [phone] Phone Care Team Providers Care Associate Professor Of History Name Role Phone Chris Rey MD Primary [...] [facility] Care Teams Associate Professor Of History Relationship Specialty Start Date End Date Chris Rey MD [address] [place] [address] PCP - General Internal Medicine 02/17/19
--- OUTSIDE RECORDS SUMMARY | 2025-04-25 08:39 | XMS_ITS | Encounter Summary ---
Author Organization [facility] Address [address] [facility] [address] Care Team Providers Care Development Technical Lead Name Role Phone Lv Rothman MD Primary Care Provider [phone] Encounter Details Date Type Department Care Team (Late st Contact Info) Description 12/28/2020 Lab Requisition [facility] DermPath Lab [address] [place] [phone] Grayson Cason MD [address] [place] [address] Social History Tobacco Use Types Packs/Day Years Used Date Smoking Tobacco: Never Smokeless Tobacco: Never Alcohol Use Standard Drinks/Week Comments Not Currently 0 (1 standard drink = 0.6 oz pur e alcohol) Sex and Gender Information Value Date Recorded Sex Assigned at Not on file Legal Sex Male 6:[address] ADVOCATE Gender Identity Not on file Sexual Orientation Not on file documented as of this encounter Plan of Treatment Not on file documented as of this encounter Procedures Procedure Name Priority Date/Time Associated Diagnosis Comments DERMATOPATHOLOGY Routine 12/27/2020 12:0 0 AM CDT documented in this encounter Results * DERMATOPATHOLOGY (12/27/2020 12:00 AM CDT) Case Report Dermatopathology Report Case: [id number] Authorizing Provider: Grayson Cason MD Collected: 12/27/2020 12:00 AM Ordering Location: [facility] DermPath Lab Received: 12/28/2020 01:28 PM [...] of a non-oriented ellipse of skin measuring [id number]. The epidermal surface is unremarkable. The margin [...] characteristic determined by the Dermatopathology Laboratory at [facility], directed by Dr. Martinez Serna. These tests need not be, and therefore are not, approved by the [place] Food and Drug Administration. The tests are used for clinical purposes. Billing Codes Specimen Charges Stain Charges 71325 1 12:48 PM CDT DERMATOPATHOLOGY LABORATORY Embedded Images 12:48 PM CDT DERMATOPATHOLOGY LABORATORY Pathology/Cytolog y TISSUE SPECIMEN FROM SKIN / Unknown 12/27/2020 12/28/2020 1:28 PM CDT us Grayson Cason MD LAB - PATHOLOGY/CYTOLOGY ORD ERABLES Final Result DERMATOPATHOLOGY LABORATORY [facility] - Department of Dermatology [address] [phone] documented in this encounter Visit Diagnoses Not on filedocumented in this encounter Care Teams Development Technical Lead Relationship Specialty Start Date End Date Lv Rothman MD [address] [place] [phone] PCP - General 04/14/12 documented as of this encounter
[2025-04-25 12:59] LABS: Hematocrit 41.5 % (42.0-52.0); Hemoglobin 13.5 g/dL (14.0-18.0); Mean Corpuscular HGB Conc 32.5 g/dl (32-36); Mean Corpuscular Hemoglobin 34.3 pg (26-34); Mean Corpuscular Volume 105.3 fl (80-100); Platelet Count Result 206 k/mm3 (150-375); Red Blood Count 3.94 M/mm3 (4.6-6.20); White Blood Count 6.9 K/mm3 (4.5-10.0)
[2025-04-25 13:06] LABS: Albumin Level 4.0 g/dL (3.5-5.1); Anion Gap 8 mmol/L (4-12); Blood Urea Nitrogen 42 mg/dL (9-20); Calcium 9.4 mg/dL (8.4-10.2); Carbon Dioxide 26 mmol/L (22-30); Chloride 104 mmol/L (98-107); Estimated Glomerular Filt Rate 28; Glucose 118 mg/dL (65-110); Potassium 4.7 mmol/L (3.4-5.0); Sodium 138 mmol/L (137-145)
[2025-04-25 13:19] LABS: Parathyroid Intact 30.0 pg/mL (14.5-75.2)
[2025-04-25 13:46] LABS: Total Protein Urine Random 16 mg/dL; Ur Ttl Prot Creatinine Ratio 0.24 mg/mg (0-0.20)
== END 2025-04-25 08:29 | disposition home or self-care (01) ==
LOC: ANHGOSHLAB 08:29
PROVIDERS: PCP Family Medicine; Visit Provider Internal Medicine Nephrology
DX: N18.32 Chronic kidney disease, stage 3b (principal)
CPT/HCPCS: 36415; 80069; 82570; 83970; 84156; 85027